=== PATIENT | female | born 1960 | race Caucasian/White ===

== ENCOUNTER 2016-06-21 16:35 | Emergency (ER) | payer OTHER ==
[~2016-06-21] VITALS: Ht 177.8 cm; Wt 85.0 kg
[~2016-06-21 16:35] MED LIST: HYDR-3516 PO; MULT1TAB84 PO; VITA100T2 PO; XARE15TA PO
[2016-06-21 17:22] VITALS: BP 123/76; PULSE 86; RESP 18; TEMP 98.8; O2SAT 96
[2016-06-21 17:26] VITALS: BP 123/76; PULSE 86; RESP 18; TEMP 98.8; O2SAT 96
[2016-06-21] MEDS ORDERED: ONDANSETRON HCL 4 MG/2 ML VIAL IVP ONE (17:45)
[2016-06-21] MEDS ORDERED: MORPHINE SULFATE 4 MG/ML INJ IV PUSH ONE ×2 (17:45→20:30)
[2016-06-21] MEDS ORDERED: SODIUM CHLOR 0.9% 1000 ML INJ 1,000 ML IV SCH (17:45)
--- NOTE | 2016-06-21 18:05 | RADRPT ---
EXAM DATE/TIME: 06/21/2016 18:07 [facility] COMPARISON: CHEST SINGLE AP, April 26, 2016, 21:21. INDICATIONS : Chest pains. MEDICAL HISTORY : None. SURGICAL HISTORY : None. ENCOUNTER: Initial ACUITY: 1 day PAIN SCORE: 10/10 LOCATION: Bilateral lower chest FINDINGS: The cardiac silhouette is normal in transverse diameter. The lungs are free of acute parenchymal opac ity. No effusions are identified. The lungs are hyperinflated. A moderate size hiatal hernia is prese nt. CONCLUSION: 1. No acute cardiopulmonary disease. Hiatal hernia Myron Bach MD on June 21, 2016 at 18:04 Board Certified Radiologist. This report was verified electronically.
--- NOTE | 2016-06-21 18:51 | PD ---
HPI Chief Complaint: Abdominal Pain Time Seen by Provider: 18:47 Travel History International Travel<30 days: No Contact w/Intl Traveler<30days: No Traveled to known affect area: No History of Present Illness HPI 55-year-old female that presents to the ED for evaluation of altered mental status and abdominal pain. Per report from the ED nurse apparently per ambulance a friend of the patient called the ambulance because apparently she was being altered secondary to possible alcohol abuse. Apparently per ambulance report she was uncooperative with them and did smell of alcohol. She did appear to be somewhat confused. No signs of trauma. Ever since she's been here she is actually been cooperative and the only thing she complains of his of severe abdominal pain. She states that she's had diarrhea and some nausea and vomiting. She does tell me that she's been drinking alcohol today. She denies any chest pain or shortness of breath. Per patient she does feel weak. She feels tired. She states that her pain is 8 out of 10. Mainly on the abdomen. Does not radiate. Denies any blood in the stool or in the emesis. Has no allergies to medication. Has not taken anything for this. She seems to answer questions appropriately. She does complain of a slight headache. No blurry vision or double vision. She does have a history of pancreatitis in the past and alcohol abuse per medical records. History somewhat poor as patient is not really good history and and does appear to be somewhat intoxicated. PFSH Past Medical History Hx Anticoagulant Therapy: Yes (XARELTO ) Blood Disorders: No Bipolar Disorder: Yes Anxiety: Yes Depression: Yes Heart Rhythm Problems: No Cancer: No Cardiovascular Problems: Yes (MURMUR) High Cholesterol: No Chest Pain: No Congestive Heart Failure: No Cerebrovascular Accident: Yes Diminished Hearing: No Endocrine: No Gastrointestinal Disorders: Yes (abdominal pain, pancreatitis) Genitourinary: Yes (essence this admission ) Immune Disorder: No Musculoskeletal: Yes (left sided weakness r/t cva) Neurologic: Yes (fibromyalia, old CVA) Psychiatric: Yes (bipolar) Reproductive: No Respiratory: No Pancreatitis: Yes Seizures: Yes ?: Unknown Past Surgical History Other Surgery: No Social History Alcohol Use: Yes (detoxing, LAST DRINK 04/25/16 1200) Tobacco Use: Yes (1/2PPD) Substance Use: No Allergies-Medications (Allergen,Severity, Reaction): Coded Allergies: No Known Allergies (Unverified , 04/26/16) Reported Meds & Prescriptions Reported Meds & Active Scripts Active Xarelto (Rivaroxaban) 15 Mg Tab 15 Mg PO DIRECTED 30 Days 15 mg po twice daily for 15 days then 20 mg po daily. Multivitamin Adults (Multiple Vitamins W/ Minerals) 1 Tab 1 Tab PO DAILY 30 Days Vitamin B-1 (Thiamine HCl) 100 Mg Tab 100 Mg PO DAILY 30 Days Hydrocodone-Acetaminophen 5-325 mg Tab 1 Tab PO Q6HR PRN Review of Systems ROS Limitations: Poor Historian General / Constitutional: Positive: Chills, No: Fever, Weight Gain, Weight Loss, Other Eyes: No: Diploplia, Blurred Vision, Photophobia, Drainage, Redness, Foreign Body Sensation, Pain, Tearing, Blind Spots, Visual changes, Blindness, Other HENT: Positive: Headaches, No: Vertigo, Lightheadedness, Sore Throat, Rhinitis , Rhinorrhea, Congestion, Nosebleed, Neck Stiffness, Neck Pain, Masses, Gingival Bleeding, Dental Difficulties, Ear Discharge, Earache, Other Cardiovascular: No: Chest Pain or Discomfort, Palpitations, Irregular Rhythm, Tachycardia, Diaphoresis, Syncope, Dyspnea on exertion, Varicosities, Edema, Cyanosis, Varicosities, Phlebitis, Claudication, Other Respiratory: No: Cough, Shortness of Breath, Wheezing, Sneezing, Orthopnea, Hemoptysis, Stridor, Night Sweats, Pleuritic Pain, Other Gastrointestinal: Positive: Nausea, Vomiting, Diarrhea, Abdominal Pain, No: Hematemesis, Hematochezia, Constipation, Changes in Bowel Habits, Indigestion, Dysphagia, Loss of Appetite, Other Genitourinary: No: Urgency, Frequency, Dysuria, Nocturia, Hematuria, Decreased Urinary Output, Oliguria, Hesitancy, Dribbling, Incontinence, Pelvic Pain, Flank Pain, Dyspareunia, Discharge, Dysmenorrhea, Menorrhagia, Metorrhagia, Vaginal Bleeding, Other Musculoskeletal: No: Myalgias, Arthralgias, Limited ROM, Weakness, Cramping, Edema, Pain, Atrophy, Other Skin: No Rash, No Itching, No Dryness, No Lumps, No Hives, No Change in Pigmentation, No Change in nails, No Alopecia, No Lesions, No Breast Lumps, No Breast Tenderness, No Breast Swelling, No Other Neurologic: No: Weakness, Dizziness, Syncope, Focal Abnormalities, Coordination Problem, Tremor, Ataxia, Headache, Change in Mentation, Slurred Speech, Paresthesia, Incontinence, Seizures, Sensory Disturbance, Other Psychiatric: No: Anxiety, Depression, Suicidal Ideations, Disorder of Thought, Mood Disorder, Substance Abuse, Homicidal Ideation, Other Endocrine: No: Heat Intolerance, Cold Intolerance, Polyuria, Polydipsia, Other Hematologic/Lymphatic: No: Easy Bruising, Lymph Node Enlargement, Other Physical Exam Narrative GENERAL: SKIN: Warm and dry. HEAD: Atraumatic. Normocephalic. EYES: Pupils equal and round 4 mm reactive to light and accommodation. No scleral icterus. No injection or drainage. ENT: No nasal bleeding or discharge. Mucous membranes pink and moist. Tongue is midline. No uvula deviation. NECK: Trachea midline. No JVD. CARDIOVASCULAR: Regular rate and rhythm. No murmurs, S3, S4. RESPIRATORY: No accessory muscle use. Clear to auscultation. Breath sounds equal bilaterally. GASTROINTESTINAL: Abdomen soft, tender with deep and so palpation bilaterally, nondistended. Hepatic and splenic margins not palpable. MUSCULOSKELETAL: Extremities without clubbing, cyanosis, or edema. No obvious deformities. Patient has full range of motion of the upper and lower extremities bilaterally. 2+ pulses bilaterally. NEUROLOGICAL: Awake and alert. No obvious cranial nerve deficits. Motor grossly within normal limits. Five out of 5 muscle strength in the arms and legs. Normal speech. PSYCHIATRIC: Appropriate mood and affect; insight and judgment normal. Data Data Last Documented VS Vital Signs Date Time Temp Pulse Resp B/P Pulse Ox O2 Delivery O2 Flow Rate FiO2 06/21/16 20:02 80 18 98 Room Air 06/21/16 17:26 98.8 123/76 Orders Complete Blood Count With Diff (06/21/16 17:45) Comprehensive Metabolic Panel (06/21/16:45) Lipase (06/21/16:45) Lactic Acid (06/21/16:45) Prothrombin Time / Inr (Pt) (06/21/16:45) Act Partial Throm Time (Ptt) (06/21/16:45) Urinalysis - C+S If Indicated (06/21/16:45) Ct Abd/Pel W Iv Contrast(Rout) (06/21/16 17:45) Iv Access Insert/Monitor (06/21/16 17:45) Ecg Monitoring (06/21/16 17:45) Oximetry (06/21/16 17:45) NPO (06/21/16 17:45) Morphine Inj (Morphine Inj) (06/21/16 17:45) Ondansetron Inj (Zofran Inj) (06/21/16 17:45) Sodium Chlor 0.9% 1000 Ml Inj (Ns 1000 M (06/21/16 17:45) Electrocardiogram (06/21/16 17:45) Ct Brain W/O Iv Contrast(Rout) (06/21/16 ) Chest, Single Ap (06/21/16 ) Troponin I (06/21/16 17:45) Drug Screen, Random Urine (06/21/16 17:45) Alcohol (Ethanol) (06/21/16 17:45) Thiamine Inj (Thiamine Inj) (06/21/16 20:15) Morphine Inj (Morphine Inj) (06/21/16 20:30) Iohexol 350 Inj (Omnipaque 350 Inj) (06/21/16 21:47) Cath For Specimen (06/21/16 22:28) Labs Laboratory Tests Test 06/21/16 19:15 White Blood Count 3.9 TH/MM3 Red Blood Count 4.82 MIL/MM3 Hemoglobin 15.3 GM/DL Hematocrit 44.3 % Mean Corpuscular Volume 91.9 FL Mean Corpuscular Hemoglobin 31.7 PG Mean Corpuscular Hemoglobin 34.4 % Concent Red Cell Distribution Width 16.3 % Platelet Count 240 TH/MM3 Mean Platelet Volume 7.6 FL Neutrophils (%) (Auto) 43.5 % Lymphocytes (%) (Auto) 47.9 % Monocytes (%) (Auto) 8.0 % Eosinophils (%) (Auto) 0.1 % Basophils (%) (Auto) 0.5 % Neutrophils # (Auto) 1.7 TH/MM3 Lymphocytes # (Auto) 1.9 TH/MM3 Monocytes # (Auto) 0.3 TH/MM3 Eosinophils # (Auto) 0.0 TH/MM3 Basophils # (Auto) 0.0 TH/MM3 CBC Comment DIFF FINAL Differential Comment Prothrombin Time 9.8 SEC Prothromb Time International 0.9 RATIO Ratio Activated Partial 27.3 SEC Thromboplast Time Sodium Level 130 MEQ/L Potassium Level 4.6 MEQ/L Chloride Level 93 MEQ/L Carbon Dioxide Level 26.0 MEQ/L Anion Gap 11 MEQ/L Blood Urea Nitrogen 4 MG/DL Creatinine 0.51 MG/DL Estimat Glomerular Filtration 124 ML/MIN Rate Random Glucose 77 MG/DL Lactic Acid Level 2.6 mmol/L Calcium Level 8.4 MG/DL Total Bilirubin 0.3 MG/DL Aspartate Amino Transf 48 U/L (AST/SGOT) Alanine Aminotransferase 46 U/L (ALT/SGPT) Alkaline Phosphatase 128 U/L Troponin I LESS THAN 0.02 NG/ML Total Protein 7.5 GM/DL Albumin 3.9 GM/DL Lipase 58 U/L Ethyl Alcohol Level 249 MG/DL MDM Medical Decision Making Medical Screen Exam Complete: Yes Emergency Medical Condition: Yes Medical Record Reviewed: Yes Interpretation(s) CBC & BMP Diagram 06/21/16 19:15 LFts WNL lipase slighlty elevated tox negative Last Impressions Abdomen/Pelvis CT 06/21/16 1745 Signed Impressions: Service Date/Time: Tuesday, June 21, 2016 21:43 - CONCLUSION: 1. No acute findings. Previous acute pancreatitis has resolved on CT examination. 2. Large hiatal hernia. 3. 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 4. Diffuse fatty infiltration of the liver. 5. Marked bladder distention. Omar Fraire MD Head CT 06/21/16 0000 Signed Impressions: Service Date/Time: Tuesday, June 21, 2016 20:10 - CONCLUSION: Normal examination for a patient of this age. Omar Fraire MD Chest X-Ray 06/21/16 0000 Signed Impressions: Service Date/Time: Tuesday, June 21, 2016 18:07 - CONCLUSION: 1. No acute cardiopulmonary disease. Hiatal hernia Myron Bach MD Differential Diagnosis Pancreatitis versus acute abdomen versus cholecystitis versus alcohol abuse versus altered mental status versus head injury versus drug abuse versus intoxication versus dehydration versus acute kidney injury Narrative Course 55-year-old female that presents to the ED for evaluation of abdominal pain and altered mental status. Patient was properly examined and was found to have signs and symptoms of unclear etiology at this time. Patient does appear to be somewhat intoxicated and somewhat confused but she does complain of a lot of abdominal pain. Recommendation presents for labs and imaging and workup for altered mental status as well as abdominal pain. Patient is agreeable with this. Labs and imaging ordered. Patient was started on IV fluids. Given pain medication as well. Labs and imaging showed elevated lactic acid. CT of the abdomen did show distended bladder. Patient has not been able to give us a urine sample since been here. Patient's alcohol level is also elevated. Case was discussed in my attending Dr. Charles who recommends causing the patient. Patient was signed out to her pending disposition for possible admission. Moody Martin Jun 21, 2016 18:51
[2016-06-21 19:30] LABS: AUTOMATED NEUTROPHIL # 1.7 TH/MM3 (1.8-7.7); BASOPHIL % 0.5 % (0.0-2.0); EOSINOPHIL % 0.1 % (0.0-4.0); HEMATOCRIT 44.3 % (35.0-46.0); HEMO FLAGS DIFF FINAL; LYMPH % 47.9 % (9.0-44.0); LYMPHOCYTE # 1.9 TH/MM3 (1.0-4.8); MEAN CELL VOLUME 91.9 FL (80.0-100.0); MEAN CORPUSCULAR HEMOGLOBIN 31.7 PG (27.0-34.0); MEAN CORPUSCULAR HGB CONC 34.4 % (32.0-36.0); NEUT % 43.5 % (16.0-70.0); PLATELET COUNT 240 TH/MM3 (150-450); RED BLOOD COUNT 4.82 MIL/MM3 (4.00-5.30); RED CELL DISTRIBUTION WIDTH 16.3 % (11.6-17.2); WHITE BLOOD COUNT 3.9 TH/MM3 (4.0-11.0)
[2016-06-21 19:44] LABS: ANION GAP 11 MEQ/L (5-15)
[2016-06-21 19:50] LABS: ALKALINE PHOSPHATASE 128 U/L (45-117); ALT (GPT) 46 U/L (10-53); AST (GOT) 48 U/L (15-37); BLOOD UREA NITROGEN 4 MG/DL (7-18); CHLORIDE 93 MEQ/L (98-107); GLOMERULAR FILTRATION RATE 124 ML/MIN (>89); POTASSIUM 4.6 MEQ/L (3.5-5.1); SODIUM (NA) 130 MEQ/L (136-145); TOTAL BILIRUBIN ADULT 0.3 MG/DL (0.2-1.0)
[2016-06-21 20:02] VITALS: PULSE 80; RESP 18; O2SAT 98
[2016-06-21 20:02] LABS: APTT (PATIENT) 27.3 SEC (24.3-30.1); INTERNATIONAL NORMALIZED RATIO 0.9 RATIO; PROTHROMBIN TIME - PATIENT 9.8 SEC (9.8-11.6)
[2016-06-21] MEDS ORDERED: THIAMINE INJ 100 MG in SODIUM CHLORIDE 0.9% INJ 100 ML IV ONE (20:15)
--- NOTE | 2016-06-21 20:57 | RADRPT ---
EXAM DATE/TIME: 06/21/2016 20:10 [facility] COMPARISON: No previous studies available for comparison. INDICATIONS : Nausea, vomiting and weakness. RADIATION DOSE: 50.47 CTDIvol (mGy) MEDICAL HISTORY : Seizures. Pancreatitis. Cerebrovascular disease. SURGICAL HISTORY : None. ENCOUNTER: Initial ACUITY: 1 day PAIN SCALE: 6/10 LOCATION: cranial TECHNIQUE: Multiple contiguous axial images were obtained of the head. Using automated exposure control and adj ustment of the mA and/or kV according to patient size, radiation dose was kept as low as reasonably a chievable to obtain optimal diagnostic quality images. FINDINGS: CEREBRUM: The ventricles are normal for age. No evidence of midline shift, mass lesion, hemorrhage or acute in farction. No extra-axial fluid collections are seen. POSTERIOR FOSSA: The cerebellum and brainstem are intact. The 4th ventricle is midline. The cerebellopontine angle i s unremarkable. EXTRACRANIAL: The visualized portion of the orbits is intact. SKULL: The calvaria is intact. No evidence of skull fracture. CONCLUSION: Normal examination for a patient of this age. Omar Fraire MD on June 21, 2016 at 20:55 Board Certified Radiologist. This report was verified electronically.
[2016-06-21] MEDS ORDERED: IOHEXOL 350 MG/ML 10 ML VIAL (for RAD DIAG) IV ONE (21:47)
--- NOTE | 2016-06-21 22:26 | RADRPT ---
EXAM DATE/TIME: 06/21/2016 21:43 [facility] COMPARISON: No previous studies available for comparison. INDICATIONS : Nausea, vomiting, and abdominal pain. IV CONTRAST: 100 cc Omnipaque 350 (iohexol) IV ORAL CONTRAST: No oral contrast ingested. RADIATION DOSE: 4.62 CTDIvol (mGy) MEDICAL HISTORY : Seizures. Pancreatitis. SURGICAL HISTORY : IVC Filter placement. ENCOUNTER: Initial ACUITY: 1 day PAIN SCALE: 7/10 LOCATION: Bilateral lower quadrant TECHNIQUE: Volumetric scanning of the abdomen and pelvis was performed. Using automated exposure control and ad justment of the mA and/or kV according to patient size, radiation dose was kept as low as reasonably achievable to obtain optimal diagnostic quality images. FINDINGS: Comparison is April 2016. Again seen is a large hiatal hernia diffuse fatty liver. Spleen, adrenal s and kidneys demonstrate no acute findings. Previous acute pancreatitis has resolved. There is chron ic thrombosis of the splenic vein with the vein not clearly visualized. Previously acute thrombosis w as present. Noncalcified gallstones. No bowel obstruction. Bladder is diffusely and markedly distended. Vena cava filter is present. No acute bony abnormalities. CONCLUSION: 1. No acute findings. Previous acute pancreatitis has resolved on CT examination. 2. Large hiatal hernia. 3. 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 4. Diffuse fatty infiltration of the liver. 5. Marked bladder distention. Omar Fraire MD on June 21, 2016 at 22:19 Board Certified Radiologist. This report was verified electronically.
[2016-06-22 00:31] LABS: AMPHETAMINE, URINE NEG (NEG); BARBITURATES, URINE NEG (NEG); COCAINE, URINE NEG (NEG)
[2016-06-22 00:49] LABS: BLOOD, URINE NEG (NEG); COMMENT (UR) CULT NOT INDICATED; CULTURE IF INDICATED CULT NOT INDICATED; GLUCOSE,URINE NEG (NEG); KETONE, URINE NEG (NEG); MUCUS URINE FEW /lpf (OCC); NITRITE,URINE NEG (NEG); PH, URINE 5.5 (5.0-8.5); URINE COLOR LIGHT-YELLOW (YELLW/STRAW)
[2016-06-22 02:29] VITALS: BP 118/67; PULSE 88; RESP 16; O2SAT 97
[2016-06-22] MEDS ORDERED: ALUMINUM/MAGNESIUM/SIMETH 30 ML CUP PO ONE (02:30)
[2016-06-22] MEDS ORDERED: LIDOCAINE VISCOUS 2% SOLN 15 ML UDC SWISH-SWAL ONE (02:30)
[2016-06-22] MEDS ORDERED: ATROPINE/SCOPOLAM/HYOSCYAM/PB ELIXIR 10 ML CUP PO ONE (02:30)
[2016-06-22] MEDS ORDERED: ACETAMINOPHEN 500 MG CPLT PO ONE (02:30)
[2016-06-22 04:00] VITALS: BP 127/84; PULSE 75; RESP 16; O2SAT 97
[2016-06-22] MEDS ORDERED: XARE15TA PO (06:49)
--- NOTE | 2016-06-22 06:50 | PD ---
Data Data Last Documented VS Vital Signs Date Time Temp Pulse Resp B/P Pulse Ox O2 Delivery O2 Flow Rate FiO2 06/22/16 04:00 75 16 127/84 97 Room Air 06/21/16 17:26 98.8 Orders Complete Blood Count With Diff (06/21/16 17:45) Comprehensive Metabolic Panel (06/21/16 17:45) Lipase (06/21/16 17:45) Lactic Acid (06/21/16 17:45) Prothrombin Time / Inr (Pt) (06/21/16 17:45) Act Partial Throm Time (Ptt) (06/21/16 17:45) Urinalysis - C+S If Indicated (06/21/16 17:45) Ct Abd/Pel W Iv Contrast(Rout) (06/21/16 17:45) Iv Access Insert/Monitor (06/21/16 17:45) Ecg Monitoring (06/21/16 17:45) Oximetry (06/21/16 17:45) NPO (06/21/16 17:45) Morphine Inj (Morphine Inj) (06/21/16 17:45) Ondansetron Inj (Zofran Inj) (06/21/16 17:45) Sodium Chlor 0.9% 1000 Ml Inj (Ns 1000 M (06/21/16 17:45) Electrocardiogram (06/21/16 17:45) Ct Brain W/O Iv Contrast(Rout) (06/21/16 ) Chest, Single Ap (06/21/16 ) Troponin I (06/21/16 17:45) Drug Screen, Random Urine (06/21/16 17:45) Alcohol (Ethanol) (06/21/16 17:45) Thiamine Inj (Thiamine Inj) (06/21/16 20:15) Morphine Inj (Morphine Inj) (06/21/16 20:30) Iohexol 350 Inj (Omnipaque 350 Inj) (06/21/16 21:47) Cath For Specimen (06/21/16 22:28) Ed Poc Ultrasound (06/21/16 ) Ed Poc Ultrasound (06/21/16 ) Acetaminophen (Tylenol) (06/22/16 02:30) Al-Mag Hy-Si 40-40-4 Mg/Ml Liq (Mag-Al P (06/22/16 02:30) Lidocaine 2% Viscous (Xylocaine 2% Visco (06/22/16 02:30) Sqpzr-Cgqtkx-Nkrkir-Pb Liq ( Liq (06/22/16 02:30) Labs Laboratory Tests Test 06/21/16 06/22/16 19:15 00:10 White Blood Count 3.9 TH/MM3 Red Blood Count 4.82 MIL/MM3 Hemoglobin 15.3 GM/DL Hematocrit 44.3 % Mean Corpuscular Volume 91.9 FL Mean Corpuscular Hemoglobin 31.7 PG Mean Corpuscular Hemoglobin 34.4 % Concent Red Cell Distribution Width 16.3 % Platelet Count 240 TH/MM3 Mean Platelet Volume 7.6 FL Neutrophils (%) (Auto) 43.5 % Lymphocytes (%) (Auto) 47.9 % Monocytes (%) (Auto) 8.0 % Eosinophils (%) (Auto) 0.1 % Basophils (%) (Auto) 0.5 % Neutrophils # (Auto) 1.7 TH/MM3 Lymphocytes # (Auto) 1.9 TH/MM3 Monocytes # (Auto) 0.3 TH/MM3 Eosinophils # (Auto) 0.0 TH/MM3 Basophils # (Auto) 0.0 TH/MM3 CBC Comment DIFF FINAL Differential Comment Prothrombin Time 9.8 SEC Prothromb Time International 0.9 RATIO Ratio Activated Partial 27.3 SEC Thromboplast Time Sodium Level 130 MEQ/L Potassium Level 4.6 MEQ/L Chloride Level 93 MEQ/L Carbon Dioxide Level 26.0 MEQ/L Anion Gap 11 MEQ/L Blood Urea Nitrogen 4 MG/DL Creatinine 0.51 MG/DL Estimat Glomerular Filtration 124 ML/MIN Rate Random Glucose 77 MG/DL Lactic Acid Level 2.6 mmol/L Calcium Level 8.4 MG/DL Total Bilirubin 0.3 MG/DL Aspartate Amino Transf 48 U/L (AST/SGOT) Alanine Aminotransferase 46 U/L (ALT/SGPT) Alkaline Phosphatase 128 U/L Troponin I LESS THAN 0.02 NG/ML Total Protein 7.5 GM/DL Albumin 3.9 GM/DL Lipase 58 U/L Ethyl Alcohol Level 249 MG/DL Urine Color LIGHT-YELLOW Urine Turbidity CLEAR Urine pH 5.5 Urine Specific Mentcle 1.005 Urine Protein NEG mg/dL Urine Glucose (UA) NEG mg/dL Urine Ketones NEG mg/dL Urine Occult Blood NEG Urine Nitrite NEG Urine Bilirubin NEG Urine Urobilinogen LESS THAN 2.0 MG/DL Urine Leukocyte Esterase NEG Urine RBC 1 /hpf Urine WBC 1 /hpf Urine Mucus FEW /lpf Microscopic Urinalysis Comment CULT NOT INDICATED Urine Opiates Screen NEG Urine Barbiturates Screen NEG Urine Amphetamines Screen NEG Urine Benzodiazepines Screen NEG Urine Cocaine Screen NEG Urine Cannabinoids Screen NEG MDM Supervised Visit with CHRISTIAN: Yes Narrative Course This is a 55-year-old female who presents the emergency department with abdominal pain in the setting of alcohol use. She also has a history of protein C and protein S deficiency. She's supposed to be unresponsive and also but discontinued it because of her alcoholism as she thought the risks outweighed the benefits. She was placed on a monitor and an IV was established. Labs are obtained which demonstrate no elevated alcohol level over 250. CT abdomen and pelvis was negative for colitis but did demonstrate a markedly distended bladder. A Bolton catheter was placed and the patient made 1.2 L of urine. The Bolton catheter was removed and the patient was observed for several hours. She was able to void independently. I think the patient can be discharged and I told her to return to the emergency department if she develops further difficulty urinating. I think her urinary retention is likely in the setting of morphine administered for her pain. I think her abdominal pain is due to alcoholic gastritis. I did consider mesenteric ischemia given the patient's history of protein C and protein S deficiencies however there is no evidence of colitis or enteritis on CT so I think this is unlikely. Her lactic acid is likely in the setting of dehydration due to alcoholism. Patient will be discharged home. Diagnosis Primary Impression: Alcohol intoxication Qualified Code: F10.120 - Alcohol intoxication, uncomplicated Additional Impression: Gastritis Qualified Code: K29.20 - Acute alcoholic gastritis without hemorrhage Patient Instructions: General Instructions Additional Instruction: If you develop severe or worsening abdominal pain, fever>100.4, persistent vomiting or inability to eat or drink return to the emergency department immediately. Follow up with your primary care physician in 1-2 days for a check-up. Follow up with Alexandra Cuellar in regards to psychiatric or substance related issues at: [address] [place] [id number] Med/Other Pt SpecificInfo: Prescription(s) given Scripts Rivaroxaban (Xarelto)15 Mg Tab15 Mg PO Q12HR 21 Days Ref 0 Prov:Highet,Fifi H. MD 06/22/16 Disposition: 01 DISCHARGE HOME Condition: Stable Fifi Charles MD Jun 22, 2016 06:50
[2016-06-22 07:11] VITALS: BP 127/84
--- NOTE | 2016-06-22 13:29 | EKG ---
Date Performed: 06/21/2016 Time Performed: 19:53:18 PTAGE: 55 years EKG: Sinus rhythm POSSIBLE RIGHT VENTRICULAR CONDUCTION DELAY BORDERLINE ECG PREVIOUS TRACING : 04/26/2016 21.02 Compared to previous tracing, sinus rate has increased. DOCTOR: Roni Mejia Interpretating Date/Time 06/22/2016 13:28:53
== END 2016-06-22 07:21 | disposition home or self-care (01) ==
LOC: NEPC 16:35
DX: F10.120 Alcohol abuse with intoxication, uncomplicated (principal); K29.20 Alcoholic gastritis without bleeding; R19.7 Diarrhea, unspecified; R94.31 Abnormal electrocardiogram [ECG] [EKG]; Z79.01 Long term (current) use of anticoagulants; F17.210 Nicotine dependence, cigarettes, uncomplicated
CPT/HCPCS: 70450; 71010; 74177; 80053; 80307; 80320; 81001; 83605; 83690; 84484; 85025; 85610; 85730; 93005; 96361; 96365; 96375; 96376; 99285; J2270; J2405; J3411; J7030; P9612; Q9967

== ENCOUNTER 2016-06-28 11:11 | Emergency (ER) | payer OTHER ==
[~2016-06-28] VITALS: Ht 177.8 cm; Wt 60.0 kg
[2016-06-28 11:14] VITALS: BP 127/75; PULSE 101; RESP 15; TEMP 97.8; O2SAT 95
[2016-06-28 14:42] VITALS: BP 137/90; PULSE 101; RESP 18; O2SAT 97
[2016-06-28] MEDS ORDERED: SODIUM CHLOR 0.9% 1000 ML INJ 1,000 ML IV SCH (14:56)
[2016-06-28] MEDS ORDERED: SODIUM CHLORIDE 0.9% FLUSH 5 ML FLUSH IVF PRN (15:00)
[2016-06-28] MEDS ORDERED: MORPHINE SULFATE 8 MG/ML INJ IV PUSH ONE ×2 (15:00→18:15)
[2016-06-28] MEDS ORDERED: THIAMINE INJ 100 MG in SODIUM CHLORIDE 0.9% INJ 100 ML IV ONE (15:00)
[2016-06-28] MEDS ORDERED: LORazepam 2 MG/ML VIAL IV PUSH ONE (15:00)
[2016-06-28 15:20] VITALS: O2SAT 94
[2016-06-28 15:59] LABS: AUTOMATED NEUTROPHIL # 2.1 TH/MM3 (1.8-7.7); BASOPHIL % 0.6 % (0.0-2.0); HEMATOCRIT 48.1 % (35.0-46.0); HEMO FLAGS DIFF FINAL; LYMPH % 29.1 % (9.0-44.0); MEAN CELL VOLUME 92.3 FL (80.0-100.0); MEAN CORPUSCULAR HEMOGLOBIN 31.4 PG (27.0-34.0); MONO % 7.7 % (0.0-8.0); NEUT % 62.6 % (16.0-70.0); PLATELET COUNT 191 TH/MM3 (150-450); RED BLOOD COUNT 5.21 MIL/MM3 (4.00-5.30); RED CELL DISTRIBUTION WIDTH 16.8 % (11.6-17.2); WHITE BLOOD COUNT 3.3 TH/MM3 (4.0-11.0)
[2016-06-28 16:06] LABS: APTT (PATIENT) 27.6 SEC (24.3-30.1); INTERNATIONAL NORMALIZED RATIO 0.9 RATIO; PROTHROMBIN TIME - PATIENT 9.6 SEC (9.8-11.6)
[2016-06-28 16:20] LABS: ALKALINE PHOSPHATASE 182 U/L (45-117); ALT (GPT) 125 U/L (10-53); ANION GAP 16 MEQ/L (5-15); BICARBONATE 27.4 MEQ/L (21.0-32.0); BLOOD UREA NITROGEN 4 MG/DL (7-18); CHLORIDE 88 MEQ/L (98-107); GLOMERULAR FILTRATION RATE 83 ML/MIN (>89); SODIUM (NA) 131 MEQ/L (136-145); TOTAL BILIRUBIN ADULT 0.4 MG/DL (0.2-1.0)
[2016-06-28 16:21] LABS: AST (GOT) 187 U/L (15-37); POTASSIUM 4.4 MEQ/L (3.5-5.1)
[2016-06-28] MEDS ORDERED: SODIUM CHLOR 0.9% 1000 ML INJ 1,000 ML IV ONE ×2 (16:30→17:30)
[2016-06-28] MEDS ORDERED: IOHEXOL 350 MG/ML 10 ML VIAL (for RAD DIAG) IV ONE (16:47)
--- NOTE | 2016-06-28 17:03 | RADRPT ---
EXAM DATE/TIME: 06/28/2016 16:40 [facility] COMPARISON: CT ABDOMEN & PELVIS W CONTRAST, June 21, 2016, 21:43. INDICATIONS : Diffuse abdominal pain for 3 days. IV CONTRAST: 75 cc Omnipaque 350 (iohexol) IV ORAL CONTRAST: No oral contrast ingested. RADIATION DOSE: 4.53 CTDIvol (mGy) MEDICAL HISTORY : Cerebrovascular disease. Pancreatitis. SURGICAL HISTORY : IVC Filter placement. ENCOUNTER: Initial ACUITY: 3 days PAIN SCALE: 6/10 LOCATION: Diffuse abdomen/pelvis TECHNIQUE: Volumetric scanning of the abdomen and pelvis was performed. Using automated exposure control and ad justment of the mA and/or kV according to patient size, radiation dose was kept as low as reasonably achievable to obtain optimal diagnostic quality images. FINDINGS: The examination demonstrates a large hiatal hernia. The lung bases are clear. There is decreased attenuation of the liver suggesting fatty infiltration. The liver appears mildly e nlarged. The spleen, pancreas, adrenal glands and kidneys are intact. The abdominal aorta is normal in caliber. There is no retroperitoneal adenopathy. Incidental note is made of an IVC filter. There is no free fluid within the pelvis. No iliac or inguinal adenopathy is seen. The visualized loo ps of small and large bowel are unremarkable. The visualized bony structures demonstrate mild degenerative changes but are otherwise intact. CONCLUSION: 1. Fatty infiltration of the liver with mild hepatomegaly. 2. Large hiatal hernia. 3. Incidental note made of an IVC filter. 4. Stable compared to prior examination. Eric Stovall MD on June 28, 2016 at 16:57 Board Certified Radiologist. This report was verified electronically.
[2016-06-28 18:26] VITALS: BP 152/81; PULSE 94; RESP 16; O2SAT 98
--- NOTE | 2016-06-28 19:12 | PD ---
HPI Chief Complaint: Medical Clearance Time Seen by Provider: 14:54 Travel History International Travel<30 days: No Contact w/Intl Traveler<30days: No Traveled to known affect area: No History of Present Illness HPI Patient is a 55-year-old female presents emergency department for evaluation for medical clearance for ox of alcohol Osorio Alisa act. Patient chief complaint to me is she's been having some left upper quadrant abdominal pain. Denies any fever denies any nausea or vomiting. Patient states pain is been present for the past few days. States is fairly mild in nature. Cramping in nature. Waxing and waning. No vaginal bleeding or vaginal discharge no blood in the stool no blood in the emesis. Patient does admit to drinking tonight. PFSH Past Medical History Hx Anticoagulant Therapy: Yes (XARELTO ) Blood Disorders: No Bipolar Disorder: Yes Anxiety: Yes Depression: Yes Heart Rhythm Problems: No Cancer: No Cardiovascular Problems: Yes (MURMUR) High Cholesterol: No Chest Pain: No Congestive Heart Failure: No Cerebrovascular Accident: Yes (CVA 1999) Diminished Hearing: No Endocrine: No Gastrointestinal Disorders: Yes (abdominal pain, pancreatitis) Genitourinary: Yes (essence this admission ) Immune Disorder: No Musculoskeletal: Yes (left sided weakness r/t cva) Neurologic: Yes (fibromyalia, old CVA) Psychiatric: Yes (bipolar) Reproductive: No Respiratory: No Pancreatitis: Yes Seizures: Yes ?: Not Past Surgical History Other Surgery: No Social History Alcohol Use: Yes (etoh abuse) Tobacco Use: Yes (1/2PPD) Substance Use: No Allergies-Medications (Allergen,Severity, Reaction): Coded Allergies: No Known Allergies (Unverified , 04/26/16) Reported Meds & Prescriptions Reported Meds & Active Scripts Active Xarelto (Rivaroxaban) 15 Mg Tab 15 Mg PO Q12HR 21 Days Xarelto (Rivaroxaban) 15 Mg Tab 15 Mg PO DIRECTED 30 Days 15 mg po twice daily for 15 days then 20 mg po daily. Multivitamin Adults (Multiple Vitamins W/ Minerals) 1 Tab 1 Tab PO DAILY 30 Days Vitamin B-1 (Thiamine HCl) 100 Mg Tab 100 Mg PO DAILY 30 Days Review of Systems Except as stated in HPI: all other systems reviewed are Neg Physical Exam Narrative GENERAL: Well-developed well-nourished no apparent distress SKIN: Warm and dry. HEAD: Atraumatic. Normocephalic. EYES: Pupils equal and round. No scleral icterus. No injection or drainage. ENT: No nasal bleeding or discharge. Mucous membranes pink and moist. NECK: Trachea midline. No JVD. CARDIOVASCULAR: Regular rate and rhythm. No murmur appreciated. RESPIRATORY: No accessory muscle use. Clear to auscultation. Breath sounds equal bilaterally. GASTROINTESTINAL: Abdomen soft, minimally tender in the left upper quadrant., nondistended. Hepatic and splenic margins not palpable. No CVA tenderness. MUSCULOSKELETAL: No obvious deformities. No clubbing. No cyanosis. No edema. NEUROLOGICAL: Awake and alert. No obvious cranial nerve deficits. Motor grossly within normal limits. Normal speech. PSYCHIATRIC: Appropriate mood and affect; insight and judgment normal. Data Data Last Documented VS Vital Signs Date Time Temp Pulse Resp B/P Pulse Ox O2 Delivery O2 Flow Rate FiO2 06/28/16 18:26 94 16 152/81 98 Room Air 06/28/16 11:14 97.8 Orders Complete Blood Count With Diff (06/28/16 14:56) Comprehensive Metabolic Panel (06/28/16 14:56) Lipase (06/28/16 14:56) Lactic Acid (06/28/16 14:56) Prothrombin Time / Inr (Pt) (06/28/16 14:56) Act Partial Throm Time (Ptt) (06/28/16 14:56) Ct Abd/Pel W Iv Contrast(Rout) (06/28/16 14:56) Iv Access Insert/Monitor (06/28/16 14:56) Ecg Monitoring (06/28/16 14:56) Oximetry (06/28/16 14:56) Sodium Chlor 0.9% 1000 Ml Inj (Ns 1000 M (06/28/16 14:56) Sodium Chloride 0.9% Flush (Ns Flush) (06/28/16 15:00) Electrocardiogram (06/28/16 14:56) Morphine Inj (Morphine Inj) (06/28/16 15:00) Thiamine Inj (Thiamine Inj) (06/28/16 15:00) Lorazepam Inj (Ativan Inj) (06/28/16 15:00) Sodium Chlor 0.9% 1000 Ml Inj (Ns 1000 M (06/28/16 16:30) Alcohol (Ethanol) (06/28/16 16:42) Iohexol 350 Inj (Omnipaque 350 Inj) (06/28/16 16:47) Sodium Chlor 0.9% 1000 Ml Inj (Ns 1000 M (06/28/16 17:30) Lactic Acid (06/28/16 18:10) Morphine Inj (Morphine Inj) (06/28/16 18:15) Labs Laboratory Tests Test 06/28/16 06/28/16 15:20 18:20 White Blood Count 3.3 TH/MM3 Red Blood Count 5.21 MIL/MM3 Hemoglobin 16.3 GM/DL Hematocrit 48.1 % Mean Corpuscular Volume 92.3 FL Mean Corpuscular Hemoglobin 31.4 PG Mean Corpuscular Hemoglobin 34.0 % Concent Red Cell Distribution Width 16.8 % Platelet Count 191 TH/MM3 Mean Platelet Volume 8.0 FL Neutrophils (%) (Auto) 62.6 % Lymphocytes (%) (Auto) 29.1 % Monocytes (%) (Auto) 7.7 % Eosinophils (%) (Auto) 0.0 % Basophils (%) (Auto) 0.6 % Neutrophils # (Auto) 2.1 TH/MM3 Lymphocytes # (Auto) 1.0 TH/MM3 Monocytes # (Auto) 0.3 TH/MM3 Eosinophils # (Auto) 0.0 TH/MM3 Basophils # (Auto) 0.0 TH/MM3 CBC Comment DIFF FINAL Differential Comment Prothrombin Time 9.6 SEC Prothromb Time International 0.9 RATIO Ratio Activated Partial 27.6 SEC Thromboplast Time Sodium Level 131 MEQ/L Potassium Level 4.4 MEQ/L Chloride Level 88 MEQ/L Carbon Dioxide Level 27.4 MEQ/L Anion Gap 16 MEQ/L Blood Urea Nitrogen 4 MG/DL Creatinine 0.72 MG/DL Estimat Glomerular Filtration 83 ML/MIN Rate Random Glucose 83 MG/DL Lactic Acid Level 4.3 mmol/L 2.6 mmol/L Calcium Level 8.9 MG/DL Total Bilirubin 0.4 MG/DL Aspartate Amino Transf 187 U/L (AST/SGOT) Alanine Aminotransferase 125 U/L (ALT/SGPT) Alkaline Phosphatase 182 U/L Total Protein 8.7 GM/DL Albumin 4.4 GM/DL Lipase 118 U/L Ethyl Alcohol Level 230 MG/DL MDM Medical Decision Making Medical Screen Exam Complete: Yes Emergency Medical Condition: Yes Interpretation(s) EKG shows normal sinus rhythm with normal axis normal R-wave progression. No concerning ST T changes intervals within normal limits. this is normal EKG. Differential Diagnosis Gastritis, gastroenteritis, intoxication, pancreatitis, colitis, electro-light abnormality. Narrative Course Patient was roomed in the emergency department,Patient is intoxicated and does have some mild left upper quadrant tenderness making CT examination indicated, level to count is 3.3 with a normal differential, hematemesis 16.3, hematocrit 40.1. Ethanol alcohol is 2:30, lactic acid is 4.3. Last 24 hours Impressions Abdomen/Pelvis CT 06/28/16 [id number] Signed Impressions: Service Date/Time: Tuesday, June 28, 2016 16:40 - CONCLUSION: 1. Fatty infiltration of the liver with mild hepatomegaly. 2. Large hiatal hernia. 3. Incidental note made of an IVC filter. 4. Stable compared to prior examination. Eric Stovall MD Patient does have some transaminitis consistent with cirrhosis, total bilirubin is normal. Coags within normal limits. Patient is given pain medicine on re- examination abdomen is soft and nontender and benign. Patient's friend has called the emergency department multiple times asking the patient is medically stable to be taken to [facility]. Discussed with the patient that if her abdominal pain is feeling better with a negative CAT scan a lactic acid better after fluid bolus that she is stable for discharge. Patient would like to go to detoxification at this time. She is medically stable to do so. Her friend is arrived is clinically sober and is going to drive her there. Diagnosis Primary Impression: Dehydration Additional Impression: Abdominal pain Qualified Code: R10.9 - Abdominal pain, unspecified location Additional Instructions: Patient seen and examined at [place] emergency room, CT abdomen negative, patient is feeling better. He is at risk for withdrawals stable for discharge at this time. Medically stable for evaluation is at [facility] at this time. Disposition: 01 DISCHARGE HOME Condition: Stable Elkin Salas MD Jun 28, 2016 19:12
--- NOTE | 2016-06-29 15:55 | EKG ---
Date Performed: 06/28/2016 Time Performed: 15:14:23 PTAGE: 55 years EKG: Sinus rhythm When compared to previous tracing, no significant change. NORMAL ECG PREVIOUS TRACING : 06/21/2016 19.53.18 DOCTOR: Gideon Callejas Interpretating Date/Time 06/29/2016 15:53:27
== END 2016-06-28 20:41 | disposition home or self-care (01) ==
LOC: NEPE 11:11
DX: E86.0 Dehydration (principal); R16.0 Hepatomegaly, not elsewhere classified; F10.120 Alcohol abuse with intoxication, uncomplicated; F17.210 Nicotine dependence, cigarettes, uncomplicated; Y90.7 Blood alcohol level of 200-239 mg/100 ml
CPT/HCPCS: 74177; 80053; 80320; 83605; 83690; 85025; 85610; 85730; 93005; 96361; 96365; 96375; 96376; 99284; J2060; J2270; J3411; J7030; Q9967

== ENCOUNTER 2016-07-09 06:38 | Inpatient (IN) | payer OTHER ==
[~2016-07-09] VITALS: Ht 180.3 cm; Wt 59.5 kg
[~2016-07-09 06:38] MED LIST changes: -HYDR-3516 PO
[2016-07-09 06:48] VITALS: BP 131/79; PULSE 63; RESP 16; TEMP 98.4; O2SAT 99
[2016-07-09] MEDS ORDERED: AMLO2.5T PO (07:00)
[2016-07-09] MEDS ORDERED: SODIUM CHLOR 0.9% 1000 ML INJ 1,000 ML IV ONE (07:13)
[2016-07-09 07:17] VITALS: RESP 18; O2SAT 100
[2016-07-09 07:30] LABS: AUTOMATED NEUTROPHIL # 1.4 TH/MM3 (1.8-7.7); BASOPHIL # 0.1 TH/MM3 (0-0.2); EOSINOPHIL % 0.9 % (0.0-4.0); HEMATOCRIT 33.3 % (35.0-46.0); HEMO FLAGS DIFF FINAL; LYMPH % 33.2 % (9.0-44.0); MEAN CELL VOLUME 94.7 FL (80.0-100.0); MEAN CORPUSCULAR HEMOGLOBIN 31.5 PG (27.0-34.0); MEAN CORPUSCULAR HGB CONC 33.3 % (32.0-36.0); MONO % 17.6 % (0.0-8.0); NEUT % 46.3 % (16.0-70.0); PLATELET COUNT 272 TH/MM3 (150-450); RED BLOOD COUNT 3.52 MIL/MM3 (4.00-5.30); RED CELL DISTRIBUTION WIDTH 16.5 % (11.6-17.2)
[2016-07-09 07:41] LABS: ALT (GPT) 41 U/L (10-53); ANION GAP 12 MEQ/L (5-15); AST (GOT) 21 U/L (15-37); BLOOD UREA NITROGEN 8 MG/DL (7-18); CHLORIDE 108 MEQ/L (98-107); GLOMERULAR FILTRATION RATE 94 ML/MIN (>89); POTASSIUM 3.6 MEQ/L (3.5-5.1); SODIUM (NA) 143 MEQ/L (136-145)
[2016-07-09 07:43] LABS: ALKALINE PHOSPHATASE 88 U/L (45-117); TOTAL BILIRUBIN ADULT 0.3 MG/DL (0.2-1.0)
[2016-07-09 08:09] LABS: BACTERIA, URINE MOD /hpf; BLOOD, URINE NEG (NEG); COMMENT (UR) CULTURE INDICATED; CULTURE IF INDICATED CULTURE INDICATED; GLUCOSE,URINE NEG (NEG); KETONE, URINE NEG (NEG); MUCUS URINE FEW /lpf (OCC); NITRITE,URINE NEG (NEG); PH, URINE 5.5 (5.0-8.5); SQUAMOUS EPITHELIAL CELL URINE 1 /hpf (0-5); URINE COLOR YELLOW (YELLW/STRAW)
[2016-07-09 08:15] LABS: AMPHETAMINE, URINE NEG (NEG); BARBITURATES, URINE POS (NEG); COCAINE, URINE NEG (NEG)
--- NOTE | 2016-07-09 08:16 | PD ---
HPI Chief Complaint: Seizure Time Seen by Provider: 07:12 Travel History International Travel<30 days: No Contact w/Intl Traveler<30days: No Traveled to known affect area: No History of Present Illness HPI 55-year-old female presents after a witnessed general tonic-clonic seizure at [facility] by report. Patient states she has been there since Friday evening for alcohol rehabilitation. She states that her last alcohol was Friday morning before going in. She states right before that she was at [facility] getting Ativan for seizures. She states that they did not have her on a different seizure medication but she's been on Depakote in the past. She does not follow with a neurologist. She denies complaints other than a headache. Quality is achy. Severity is all over. She denies specific modifying factors. PFSH Past Medical History Hx Anticoagulant Therapy: Yes (XARELTO ) Blood Disorders: No Bipolar Disorder: Yes Anxiety: Yes Depression: Yes Heart Rhythm Problems: No Cancer: No Cardiovascular Problems: Yes (MURMUR) High Cholesterol: No Chest Pain: No Congestive Heart Failure: No Cerebrovascular Accident: Yes (CVA 2000) Diminished Hearing: No Endocrine: No Gastrointestinal Disorders: Yes (abdominal pain, pancreatitis) Genitourinary: Yes (essence this admission ) Immune Disorder: No Musculoskeletal: Yes (left sided weakness r/t cva) Neurologic: Yes (fibromyalia, old CVA) Psychiatric: Yes (bipolar) Reproductive: No Respiratory: No Immunizations Current: Yes Pancreatitis: Yes Seizures: Yes Tetanus Vaccination: Unknown ?: Not Past Surgical History Other Surgery: No Social History Alcohol Use: Yes (etoh abuse) Tobacco Use: Yes (1PPD) Substance Use: Yes (OPIATES) Allergies-Medications (Allergen,Severity, Reaction): Coded Allergies: No Known Allergies (Unverified , 07/09/16) Reported Meds & Prescriptions Reported Meds & Active Scripts Active Multivitamin Adults (Multiple Vitamins W/ Minerals) 1 Tab 1 Tab PO DAILY 30 Days Reported Ativan (Lorazepam) 0.5 Mg Tab 0.5 Mg PO Q4H PRN Amlodipine (Amlodipine Besylate) 2.5 Mg Tab 2.5 Mg PO DAILY Review of Systems Except as stated in HPI: all other systems reviewed are Neg Physical Exam Narrative GENERAL: Well-nourished, well-developed patient. SKIN: Warm and dry. HEAD: Normocephalic and atraumatic. EYES: No injection or drainage. Pupils equal ENT: No nasal drainage noted. NECK: Supple, trachea midline. Nontender in midline CARDIOVASCULAR: Regular rate and rhythm RESPIRATORY: Breath sounds equal bilaterally. No accessory muscle use. GASTROINTESTINAL: Abdomen soft, non-tender, nondistended. NEUROLOGICAL: Awake and alert. Motor and sensory grossly within normal limits. Normal speech. Data Data Last Documented VS Vital Signs Date Time Temp Pulse Resp B/P Pulse Ox O2 Delivery O2 Flow Rate FiO2 07/09/16 09:10 71 18 130/83 100 Room Air 07/09/16 06:48 98.4 Orders Complete Blood Count With Diff (07/09/16 07:13) Alcohol (Ethanol) (07/09/16 07:13) Drug Screen, Random Urine (07/09/16 07:13) Electrocardiogram (07/09/16 ) Ct Brain W/O Iv Contrast(Rout) (07/09/16 ) Blood Glucose (07/09/16 07:13) Ecg Monitoring (07/09/16 07:13) Iv Access Insert/Monitor (07/09/16 07:13) Oximetry (07/09/16 07:13) Comprehensive Metabolic Panel (07/09/16 07:13) Sodium Chlor 0.9% 1000 Ml Inj (Ns 1000 M (07/09/16 07:13) Sodium Chloride 0.9% Flush (Ns Flush) (07/09/16 07:15) Urinalysis - C+S If Indicated (07/09/16 07:13) Phenytoin (Dilantin) (07/09/16 07:49) Valproic Acid (Depakene) (07/09/16 07:49) Urine Culture (07/09/16 07:55) Lorazepam Inj (Ativan Inj) (07/09/16 08:30) Mri Brain W&W/O Contrast (07/09/16 ) Phenobarbital (07/09/16 07:19) Diet Npo Except Meds (07/09/16 Lunch) Activity Bed Rest (07/09/16 10:14) Nursing Bedside Swallow Assess .ONCE (07/09/16 10:14) Vital Signs (Adult) JONATAN.Q4H (07/09/16 10:14) Dext 5%-Nacl 0.9% 1... W/Potassium Chlor (07/09/16 11:00) Admit Order (Ed Use Only) (07/09/16 10:20) Labs Laboratory Tests Test 07/09/16 07/09/16 07/09/16 07:13 07:19 07:55 Urine Opiates Screen NEG Urine Barbiturates Screen POS Urine Amphetamines Screen NEG Urine Benzodiazepines Screen POS Urine Cocaine Screen NEG Urine Cannabinoids Screen NEG White Blood Count 3.0 TH/MM3 Red Blood Count 3.52 MIL/MM3 Hemoglobin 11.1 GM/DL Hematocrit 33.3 % Mean Corpuscular Volume 94.7 FL Mean Corpuscular Hemoglobin 31.5 PG Mean Corpuscular Hemoglobin 33.3 % Concent Red Cell Distribution Width 16.5 % Platelet Count 272 TH/MM3 Mean Platelet Volume 7.9 FL Neutrophils (%) (Auto) 46.3 % Lymphocytes (%) (Auto) 33.2 % Monocytes (%) (Auto) 17.6 % Eosinophils (%) (Auto) 0.9 % Basophils (%) (Auto) 2.0 % Neutrophils # (Auto) 1.4 TH/MM3 Lymphocytes # (Auto) 1.0 TH/MM3 Monocytes # (Auto) 0.5 TH/MM3 Eosinophils # (Auto) 0.0 TH/MM3 Basophils # (Auto) 0.1 TH/MM3 CBC Comment DIFF FINAL Differential Comment Sodium Level 143 MEQ/L Potassium Level 3.6 MEQ/L Chloride Level 108 MEQ/L Carbon Dioxide Level 23.0 MEQ/L Anion Gap 12 MEQ/L Blood Urea Nitrogen 8 MG/DL Creatinine 0.65 MG/DL Estimat Glomerular Filtration 94 ML/MIN Rate Random Glucose 89 MG/DL Calcium Level 8.6 MG/DL Total Bilirubin 0.3 MG/DL Aspartate Amino Transf 21 U/L (AST/SGOT) Alanine Aminotransferase 41 U/L (ALT/SGPT) Alkaline Phosphatase 88 U/L Total Protein 6.5 GM/DL Albumin 3.4 GM/DL Phenytoin (Dilantin) Level LESS THAN 0.4 MCG/ML Valproic Acid (Depakene) Level 3 MCG/ML Phenobarbital Level LESS THAN 2.1 MCG/ML Ethyl Alcohol Level LESS THAN 3 MG/DL Urine Color YELLOW Urine Turbidity CLEAR Urine pH 5.5 Urine Specific [place] 1.010 Urine Protein NEG mg/dL Urine Glucose (UA) NEG mg/dL Urine Ketones NEG mg/dL Urine Occult Blood NEG Urine Nitrite NEG Urine Bilirubin NEG Urine Urobilinogen LESS THAN 2.0 MG/DL Urine Leukocyte Esterase NEG Urine RBC LESS THAN 1 /hpf Urine WBC 1 /hpf Urine Squamous Epithelial 1 /hpf Cells Urine Bacteria MOD /hpf Urine Mucus FEW /lpf Microscopic Urinalysis Comment CULTURE INDICATED MDM Medical Decision Making Medical Screen Exam Complete: Yes Emergency Medical Condition: Yes Medical Record Reviewed: Yes (past history confirm, [facility] Interpretation(s) CBC & BMP Diagram 07/09/16 07:19 Last [address] 07/09/16 0000 Signed Impressions: Service Date/Time: Saturday, July 09, 2016 08:09 - CONCLUSION: 1. Area of low-density right frontal lobe seen. Contrasted MRI recommended for further characterization. Brandyn Eli MD Last [address] 07/09/16 0000 Signed Impressions: Service Date/Time: Saturday, July 09, 2016 08:09 - CONCLUSION: 1. Area of low-density right frontal lobe seen. Contrasted MRI recommended for further characterization. Brandyn Eli MD Brain MRI 07/09/16 0000 Signed Impressions: Service Date/Time: Saturday, July 09, 2016 11:40 - CONCLUSION: Focal area of hemorrhage in the right frontal lobe with significant surrounding vasogenic edema and low grade enhancement after contrast. It is difficult to rule out an underlying mass with some adjacent hemorrhage. With essentially negative CT of the brain on 06/21/16 this is concerning for an underlying malignancy; i.e., there was no hemorrhage at the time of that study. David Henry MD Differential Diagnosis Alcohol withdrawal, seizure disorder, intracranial, electrolyte Narrative Course Will check blood work, imaging and dose with Ativan and reevaluate ED workup shows area of lower attenuation in frontal lobe, MRI ordered. Will admit to the hospital for further care and discuss with neurology Patient with no further seizure here. Updated about CT scan and awaiting MRI MRI shows possible bleed with edema, will discuss with neurosurgery. No change in status with patient. Decadron was ordered Cerebyx ordered and will continue to be monitored in the hospital Critical Care Narrative Aggregate critical care time was 35 minutes. Time to perform other separately billable procedures was not included in the critical care time. My time did not include minutes spent treating any other patients simultaneously or on activities that did not directly contribute to the patient's treatment. The services I provided to this patient were to treat and/or prevent clinically significant deterioration that could result in: Status epilepticus, progression of bleeding I provided critical care services requiring my management, as noted below: Chart data review, documentation time, medication orders and management, vital sign assessments/reviewing monitor data, ordering and reviewing lab tests, ordering and interpreting/reviewing x-rays and diagnostic studies, care of the patient and discussion of the patient with the admitting physicians. Physician Communication Physician Communication dr sepulveda agrees to admit dr phelps will follow, no seizure meds for now, if has another seizure to call dr ibarra states to place on cerebyx, agrees to decadron and ok for floor, will see patient Diagnosis Primary Impression: Vasogenic brain edema Additional Impressions: Right frontal lobe punctate hemorrhage Seizure Admitting Information Admitting Physician Requests: Admit Uma Humphrey MD Jul 09, 2016 08:16
--- NOTE | 2016-07-09 08:22 | RADRPT ---
EXAM DATE/TIME: 07/09/2016 08:09 [facility] COMPARISON: No previous studies available for comparison. INDICATIONS : Patient had seizure this morning RADIATION DOSE: 36.17 CTDIvol (mGy) MEDICAL HISTORY : Cardiovascular disease. Cardiovascular disease Seizures. SURGICAL HISTORY : None. ENCOUNTER: Initial ACUITY: 1 day PAIN SCALE: 6/10 LOCATION: cranial TECHNIQUE: Multiple contiguous axial images were obtained of the head. Using automated exposure control and adj ustment of the mA and/or kV according to patient size, radiation dose was kept as low as reasonably a chievable to obtain optimal diagnostic quality images. FINDINGS: CEREBRUM: Area of decreased attenuation in the right frontal lobe. The ventricles are normal for age. No evide nce of midline shift, mass lesion, hemorrhage or acute infarction. No extra-axial fluid collections are seen. POSTERIOR FOSSA: The cerebellum and brainstem are intact. The 4th ventricle is midline. The cerebellopontine angle i s unremarkable. EXTRACRANIAL: The visualized portion of the orbits is intact. SKULL: The calvaria is intact. No evidence of skull fracture. CONCLUSION: 1. Area of low-density right frontal lobe seen. Contrasted MRI recommended for further characterizati on. Brandyn Eli MD on July 09, 2016 at 8:14 Board Certified Radiologist. This report was verified electronically.
[2016-07-09] MEDS ORDERED: LORazepam 2 MG/ML VIAL IV PUSH ONE (08:30)
[2016-07-09 09:10] VITALS: BP 130/83; PULSE 71; RESP 18; O2SAT 100
[2016-07-09 09:49] LABS: PHENOBARBITAL LESS THAN 2.1 MCG/ML (15.0-40.0)
[2016-07-09] MEDS ORDERED: LORA-392 PO (09:59)
[2016-07-09 10:51] VITALS: BP 131/84; PULSE 66; RESP 16; O2SAT 100
[2016-07-09] MEDS: POTASSIUM CHLORIDE INJ 10 MEQ in DEXT 5%-NACL 0.9% 1000 ML INJ 1,000 ML IV SCH (10:59)
[2016-07-09] MEDS ORDERED: GADODIAMIDE PF 287 MG/ML 5 ML VIAL (for RAD MRI) IV ONE (12:01)
--- NOTE | 2016-07-09 13:22 | RADRPT ---
EXAM DATE/TIME: 07/09/2016 11:40 [facility] COMPARISON: No previous studies available for comparison. INDICATIONS: Cephalgia. Seizure. CONTRAST: 12 cc Omniscan (gadodiamide) IV MEDICAL HISTORY: Hypertension. SURGICAL HISTORY: Left breast biopsy. ENCOUNTER: Subsequent ACUITY: 2 day PAIN SCORE: 3/10 LOCATION: Cranial TECHNIQUE: Multiplanar, multisequence MRI of the brain was performed with and without contrast. FINDINGS: There is an abnormality in the right frontal lobe. On the flare images there is significant vasogeni c edema throughout the right frontal lobe. It does not traverse the corpus callosum. The area of ed thao measures 4.6 x 2.7 cm across. Along the superior aspect of the edema is an area of spontaneously bright signal on the T1 images alfredo suring 1.9 x 1.0 cm across likely hemorrhage. There is some areas of lower signal on the T2 images a round that area; however, there is some low grade enhancement around the suspected hemorrhage on the post contrast images. With the underlying vasogenic edema and peripheral enhancement there is concer n for an underlying mass although there is certainly hemorrhage present in this region. The rest of the brain is unremarkable. No other abnormal areas of enhancement are identified. T1 ax ial and coronal delayed images fail to demonstrate any other parenchymal areas of enhancement. CONCLUSION: Focal area of hemorrhage in the right frontal lobe with significant surrounding vasogenic edema and l ow grade enhancement after contrast. It is difficult to rule out an underlying mass with some adjace nt hemorrhage. With essentially negative CT of the brain on 06/21/16 this is concerning for an underl andrae malignancy; i.e., there was no hemorrhage at the time of that study. David Henry MD on July 09, 2016 at 13:14 Board Certified Radiologist. This report was verified electronically.
[2016-07-09] MEDS ORDERED: DEXAMETHASONE SOD PHOS 4 MG/ML VIAL IV PUSH ONE (13:45)
[2016-07-09] MEDS: chlordiazePOXIDE 25 MG CAP PO SCH ×2 (14:02→19:45)
[2016-07-09] MEDS ORDERED: FOSPHENYTOIN INJ 1,000 MGPE in SODIUM CHLORIDE 0.9% INJ 50 ML IV ONE (14:15)
[2016-07-09 15:05] VITALS: BP 165/92; PULSE 76; RESP 16; O2SAT 98
--- NOTE | 2016-07-09 16:19 | EKG ---
Date Performed: 07/09/2016 Time Performed: 06:36:51 PTAGE: 55 years EKG: Sinus rhythm POSSIBLE LEFT ATRIAL ENLARGEMENT POSSIBLE RIGHT VENTRICULAR CONDUCTION DELAY Compared to prior alexsander ng no significant change BORDERLINE ECG PREVIOUS TRACING 06/28/16 @15.14.23 DOCTOR: Edgar March Interpretating Date/Time 07/09/2016 16:18:15
--- NOTE | 2016-07-09 16:35 | MG ---
cc: ISABEL KIDD Lab No: [id number] Date: 07/09/2016 Age: Sex: F Race: TECHNIQUE [address] of the background rhythm symmetrical alpha rhythm frequency is 8 Hz amplitude is about 5-10 microvolts. There is some eye movement artifact and muscle artifact present. Hyperventilation was done with no change in the background rhythm. There is quite a bit of beta activity as well which is of the rapid rhythm, probably medication effect. I do not see any lateralizing features or epileptiform discharges. Photic results in a normal driving response. INTERPRETATION This is a normal EEG. MD RUSTY Odonnell/brock /3:00 PM /4:35 PM
--- NOTE | 2016-07-09 18:05 | HHI.HP ---
HPI Service [facility] Primary Care Physician No Primary Care Physician Admission Diagnosis seizure, abnormal ct Diagnoses: Chief Complaint: Seizure Travel History International Travel<30 Days: No Contact w/Intl Traveler <30 Da: No Traveled to Known Affected Are: No History of Present Illness Patient is a 55-year-old female right handed with history of chronic alcoholism with periods of sobriety in between. About 2 months ago patient started drinking again and was entirely went to [facility] Friday rrehabilitation. . This a.m. patient went into generalized tonic-clonic seizure witnessed by staff as she was getting out of the bathroom. And was promptly sent over here for further evaluation and management. At [facility] treatment center she was on a regimen of Ativan IV when necessary, clonidine, amlodipine, Vistaril. . Patient with history of bipolar disorder seeing a therapist. At one point in the past she was on Depakote and Klonopin. He denies any history of suicidal tendencies. She has history of hypertension and in [facility] [place] she was placed on amlodipine 5 mg daily. On further questioning she has been having right front-parietal headache l headache associated with some nausea- pretty steady.. She states that last week she fell and hit her head in the bathroom sink. 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 She states that she got herself back to her present state of near baseline. She is baseline up and ambulatory with no assistive devices. States she's been having some diarrhea for the past week brown stools no melena or hematochezia. Patient admitted for further evaluation and management. Patient now recalls that about a week ago she fell and hit her head on the bathroom sink Review of Systems Constitutional: DENIES: Diaphoretic episodes, Fatigue, Fever, Weight gain, Weight loss, Chills, Dizziness, Change in appetite, Night Sweats Endocrine: DENIES: Abnorml menstrual pattern, Heat/cold intolerance, Polydipsia , Polyuria, Polyphagia Eyes: DENIES: Blurred vision, Diplopia, Eye inflammation, Eye pain, Vision loss , Photosensitivity, Double Vision Ears, nose, mouth, throat: DENIES: Tinnitus, Hearing loss, Vertigo, Nasal discharge, Oral lesions, Throat pain, Hoarseness, Ear Pain, Running Nose, Epistaxis, Sinus Pain, Toothache, Odynophagia Respiratory: DENIES: Apneas, Cough, Snoring, Wheezing, Hemoptysis, Sputum production, Shortness of breath Cardiovascular: DENIES: Chest pain, Palpitations, Syncope, Dyspnea on Exertion , PND, Lower Extremity Edema, Orthopnea, Claudication Gastrointestinal: DENIES: Abdominal pain, Black stools, Bloody stools, Constipation, Diarrhea, Nausea, Vomiting, Difficulty Swallowing, Anorexia Genitourinary: DENIES: Abnormal vaginal bleeding, Dysmenorrhea, Dyspareunia, Sexual dysfunction, Urinary frequency, Urinary incontinence, Urgency, Hematuria , Dysuria, Nocturia, Vaginal discharge Musculoskeletal: DENIES: Joint pain, Muscle aches, Stiffness, Joint Swelling, Back pain, Neck pain Integumentary: DENIES: Abnormal pigmentation, Pruritus, Rash, Nail changes, Breast masses, Breast skin changes, Nipple discharge Hematologic/lymphatic: DENIES: Bruising, Lymphadenopathy Immunologic/allergic: DENIES: Eczema, Urticaria Neurologic: COMPLAINS OF: Localized weakness (mild left-sided weakness) Psychiatric: DENIES: Anxiety, Confusion, Mood changes, Depression, Hallucinations, Agitation, Suicidal Ideation, Homicidal Ideation, Delusions Past Family Social History Past Medical History History of hypertension Chronic alcoholism History of bipolar disorder History of CVA 1999 with residual left-sided weakness Past Surgical History No major surgeries Reported Medications Ativan Clonidine Amlodipine Vistaril Allergies: Coded Allergies: No Known Allergies (Unverified , 07/09/16) Family History Noncontributory Social History Admits to drinking "" alcohol Smoking 1 pack per day Denies any substance abuse Physical Exam Vital Signs Vital Signs Date Time Temp Pulse Resp B/P Pulse Ox O2 Delivery O2 Flow Rate FiO2 07/09/16 15:05 76 16 165/92 98 Room Air 07/09/16 10:51 66 16 131/84 100 Room Air 07/09/16 09:10 71 18 130/83 100 Room Air 07/09/16 07:17 18 100 Room Air 07/09/16 06:48 98.4 63 16 131/79 99 Physical Exam GENERAL: well-developed patient, in no apparent distress. SKIN: No rashes, ecchymoses or lesions. Cool and dry. HEAD: Atraumatic. Normocephalic. No temporal or scalp tenderness. EYES: Pupils equal round and reactive. Extraocular motions intact. No scleral icterus. No injection or drainage. ENT: Nose without bleeding, purulent drainage or septal hematoma. Throat without erythema. Airway patent. NECK: Trachea midline. No JVD or lymphadenopathy. Supple, nontender, no meningeal signs. CARDIOVASCULAR: Regular rate and rhythm without murmurs, gallops, or rubs. RESPIRATORY: Clear to auscultation. Breath sounds equal bilaterally. No wheezes , rales, or rhonchi. GASTROINTESTINAL: Abdomen soft, non-tender, nondistended. or palpable masses. No guarding. MUSCULOSKELETAL: Extremities without clubbing, cyanosis, or edema. No joint tenderness, effusion, or edema noted. No calf tenderness. Negative Homans sign bilaterally. NEUROLOGICAL: Awake and alert. Cranial nerves II through XII intact. Very mild left-sided weakness. Gait slow steady. Grossly no sensory deficits Laboratory Laboratory Tests Test 07/09/16 07/09/16 07/09/16 07:13 07:19 07:55 Urine Opiates Screen NEG Urine Barbiturates Screen POS Urine Amphetamines Screen NEG Urine Benzodiazepines Screen POS Urine Cocaine Screen NEG Urine Cannabinoids Screen NEG White Blood Count 3.0 Red Blood Count 3.52 Hemoglobin 11.1 Hematocrit 33.3 Mean Corpuscular Volume 94.7 Mean Corpuscular Hemoglobin 31.5 Mean Corpuscular Hemoglobin 33.3 Concent Red Cell Distribution Width 16.5 Platelet Count 272 Mean Platelet Volume 7.9 Neutrophils (%) (Auto) 46.3 Lymphocytes (%) (Auto) 33.2 Monocytes (%) (Auto) 17.6 Eosinophils (%) (Auto) 0.9 Basophils (%) (Auto) 2.0 Neutrophils # (Auto) 1.4 Lymphocytes # (Auto) 1.0 Monocytes # (Auto) 0.5 Eosinophils # (Auto) 0.0 Basophils # (Auto) 0.1 CBC Comment DIFF FINAL Differential Comment Sodium Level 143 Potassium Level 3.6 Chloride Level 108 Carbon Dioxide Level 23.0 Anion Gap 12 Blood Urea Nitrogen 8 Creatinine 0.65 Estimat Glomerular Filtration 94 Rate Random Glucose 89 Calcium Level 8.6 Total Bilirubin 0.3 Aspartate Amino Transf 21 (AST/SGOT) Alanine Aminotransferase 41 (ALT/SGPT) Alkaline Phosphatase 88 Total Protein 6.5 Albumin 3.4 Phenytoin (Dilantin) Level LESS THAN 0.4 Valproic Acid (Depakene) Level 3 Phenobarbital Level LESS THAN 2.1 Ethyl Alcohol Level LESS THAN 3 Urine Color YELLOW Urine Turbidity CLEAR Urine pH 5.5 Urine Specific [place] 1.010 Urine Protein NEG Urine Glucose (UA) NEG Urine Ketones NEG Urine Occult Blood NEG Urine Nitrite NEG Urine Bilirubin NEG Urine Urobilinogen LESS THAN 2.0 Urine Leukocyte Esterase NEG Urine RBC LESS THAN 1 Urine WBC 1 Urine Squamous Epithelial 1 Cells Urine Bacteria MOD Urine Mucus FEW Microscopic Urinalysis Comment CULTURE INDICATED Date/Time Procedure Status Source Growth 07/09/16 07:55 Urine Culture Received Urine Clean Catch Pending Result Diagram: 07/09/1671807/09/16718 Imaging Last Impressions Head CT 07/09/16 0000 Signed Impressions: Service Date/Time: Saturday, July 09, 2016 08:09 - CONCLUSION: 1. Area of low-density right frontal lobe seen. Contrasted MRI recommended for further characterization. Brandyn Eli MD Brain MRI 07/09/16 0000 Signed Impressions: Service Date/Time: Saturday, July 09, 2016 11:40 - CONCLUSION: Focal area of hemorrhage in the right frontal lobe with significant surrounding vasogenic edema and low grade enhancement after contrast. It is difficult to rule out an underlying mass with some adjacent hemorrhage. With essentially negative CT of the brain on 06/21/16 this is concerning for an underlying malignancy; i.e., there was no hemorrhage at the time of that study. David Henry MD Assessment and Plan Assessment and Plan Patient is a 55-year-old female with history of chronic alcoholism presenting with generalized tonic-clonic seizures on imaging study shows some frontal lobe mass hemorrhage versus tumor with some budget vasogenic edema History of CVA with residual left-sided weakness from 1999 New onset seizure - witnessed.- Patient is already on scheduled Ativan for detox so ? if this is ETOH withdrawal issue History of previous CVA with residual mild left hemiparesis Will continue benzodiazepine Librium 50 mg every 6 Negative EEG , but with frontal lobe mass and edema we will start patient on seizure medications Start on Cerebryx IV q 8- Gary Arndt consulted Dr. Ossi- consulted- neurology PT consult in am Frontal lobe mass versus meningioma versus hematoma with some vasogenic edema- per patient status post fall a week ago We'll start patient on Decadron 4 mg every 6. History of chronic alcoholism with periods of sobriety was in was to watch [facility] [place] for detox, will start patient on Librium 50 mg every 6 Hypertension monitor for now PPI for GI prophylaxis Teds for DVT prophylaxis Physician Certification 2 Midnight Certification Type: Admission for Inpatient Services Order for Inpatient Services The services are ordered in accordance with Medicare regulations or non- Medicare payer requirements, as applicable. In the case of services not specified as inpatient-only, they are appropriately provided as inpatient services in accordance with the 2-midnight benchmark. Estimated LOS (days): 3 days is the estimated time the patient will need to remain in the hospital, assuming treatment plan goals are met and no additional complications. Post-Hospital Plan: Not yet determined Aleksander Ingram MD Jul 09, 2016 18:05
[2016-07-09] MEDS ORDERED: LORazepam 2 MG/ML VIAL IV PUSH PRN (18:15)
[2016-07-09 18:51] VITALS: BP 137/93; PULSE 81; RESP 20; TEMP 98.7; O2SAT 99
[2016-07-09] MEDS: PANTOPRAZOLE SODIUM 40 MG VIAL IV PUSH SCH (18:58)
[2016-07-09] MEDS: DEXAMETHASONE SOD PHOS 4 MG/ML VIAL IV PUSH SCH (19:45)
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
[2016-07-09] MEDS ORDERED: VALPROATE INJ 500 MG in SODIUM CHLORIDE 0.9% INJ 100 ML IV ONE (21:45)
[2016-07-09] MEDS: FOSPHENYTOIN SODIUM 100 MG PE/2 ML VIAL IV SCH (22:00)
[2016-07-09] MEDS: LORazepam 2 MG/ML VIAL IV PUSH PRN (23:14)
[2016-07-10] MEDS: DEXAMETHASONE SOD PHOS 4 MG/ML VIAL IV PUSH SCH ×5 (00:41→23:47)
[2016-07-10 01:20] VITALS: BP 118/72; PULSE 65; RESP 16; TEMP 97.7; O2SAT 100
[2016-07-10] MEDS: chlordiazePOXIDE 25 MG CAP PO SCH ×5 (01:58→23:46)
[2016-07-10] MEDS: LORazepam 2 MG/ML VIAL IV PUSH PRN ×2 (05:00→12:37)
[2016-07-10] MEDS: POTASSIUM CHLORIDE INJ 10 MEQ in DEXT 5%-NACL 0.9% 1000 ML INJ 1,000 ML IV SCH ×3 (05:07→23:47)
[2016-07-10 05:35] VITALS: BP 114/68; PULSE 65; RESP 16; TEMP 97.6; O2SAT 99
[2016-07-10] MEDS: FOSPHENYTOIN SODIUM 100 MG PE/2 ML VIAL IV SCH ×2 (05:56→15:20)
--- NOTE | 2016-07-10 07:01 | MB ---
cc: [employer] DATE OF CONSULTATION 07/09/2016 REASON FOR CONSULTATION Seizures. HISTORY OF PRESENT ILLNESS Ms. Stevens is a 55-year-old female with a past medical history of chronic alcoholism who currently is in [facility] for rehab. The patient states that she had several seizures, four to five times that were always related to alcohol withdrawal and she used to be on Depakote that worked very well for her as she states but this was discontinued because of insurance problems. The patient states that the last time she had alcohol was on Friday morning and then on Friday the patient went into generalized tonic-clonic seizure witnessed by staff when she was getting out of the bathroom. The medication she was on at the rehab center was Ativan, clonidine, amlodipine and Vistaril. She also has a past medical history of bipolar disorder and was at a certain point in time on Depakote and Klonopin. The patient also states that she has history of stroke with residual left-sided weakness. REVIEW OF SYSTEMS A 12-point review of systems is negative except for what is stated in the HPI. PAST MEDICAL HISTORY 1. Hypertension. 2. Chronic alcoholism. 3. Bipolar disorder. 4. Stroke with residual left-sided weakness. PAST MEDICAL HISTORY Non-contributory. MEDICATIONS 1. Ativan. 2. Clonidine. 3. Amlodipine. 4. Vistaril. ALLERGIES No known drug allergies. FAMILY HISTORY Noncontributory. SOCIAL HISTORY Admits to drinking alcohol. Smokes one pack per day and denies substance abuse. PHYSICAL EXAMINATION GENERAL: Good historian and looks in no apparent distress. HEENT: Atraumatic, normocephalic. Intact vision. Intact hearing. NECK: Trachea in the midline. No carotid bruit signs. No signs of meningeal irritation. CARDIOVASCULAR: Regular rate and rhythm. RESPIRATORY: Clear to auscultation. No wheezes. MUSCULOSKELETAL:Extremities without clubbing. Bilateral hand tremor. No cyanosis , no edema. NEUROLOGICAL: Awake, alert, oriented to time, person and place. No slurring of speech. No dysphagia. Cranial nerve examination with pupils equally reacting to light. Intact external ocular motility. No facial asymmetry. No facial numbness. Bilateral hand tremor/asterixis. Normal tone on the right upper and lower extremity. Hypertonia/spasticity of the left upper and lower extremity. Muscle strength 5/5 bilateral, symmetrical on the right upper and lower extremity. Grade 5-minus left shoulder abduction and wrist extension and left foot dorsiflexion. The rest of the muscle strength assessment is 5/5. Sensation is intact bilateral, symmetrical to pain and temperature. Acelso-ll-tnxh and rwuh-jl-axhm is normal. Reflexes 1+ right upper and lower extremity, 2+ on finger flexion on the left side. Plantars are bilaterally downgoing. Cifiyn-[id number] and gdjh-[id number]-hedy are normal. DIAGNOSTIC IMAGING - Head CT scan without contrast revealed an area of low-density right frontal lobe. - MRI brain revealed focal area of hemorrhage in the right frontal lobe with significant surrounding vasogenic edema and low-grade enhancement after contrast. It is difficult to rule out an underlying mass with some adjacent hemorrhage. With essentially negative CT of the brain, it is concerning for an underlying malignancy that is there with no hemorrhage at the time of that study. - EEG with no reported ictal activity, normal. PLAN 1. Neuro checks q. 4 hours. 2. Start Depakote 500 mg twice daily.Works well for both seizure and mood stabilizer/history of bipolar disorder. 3. Wean gradually the Dilantin. Dilantin was initially subtherapeutic. We will check Depakote level. 4. Seizure precautions. 5. Seizure protocol. 6. Elevate head of bed. 7. Dexamethasone 1 mg q. 6 hours. 8. GI prophylaxis. 9. DVT prophylaxis. Thank you for asking me to participate in the care of your patient. MD ZUHAIR Lynn/SHIRIN /12:32 AM /6:38 AM DAMARIS
[2016-07-10 08:00] VITALS: BP 102/59; PULSE 78; RESP 16; TEMP 97.1; O2SAT 98
[2016-07-10] MEDS ORDERED: VALPROIC ACID 250 MG CAP PO SCH (09:00)
[2016-07-10 12:00] VITALS: BP 134/90; PULSE 72; RESP 16; TEMP 99.7; O2SAT 99
--- NOTE | 2016-07-10 13:54 | HHI.PR ---
Subjective Remarks patient is awake and alert no complains of headache, nausea or vomiting states feels a little stronger still mildly tremulous- required prn Ativan overnight Objective Vitals Vital Signs Date Time Temp Pulse Resp B/P Pulse Ox O2 Delivery O2 Flow Rate FiO2 07/10/16 08:00 97.1 78 16 102/59 98 07/10/16 05:35 97.6 65 16 114/68 99 07/10/16 01:20 97.7 65 16 118/72 100 07/09/16 18:51 98.7 81 20 137/93 99 07/09/16 15:05 76 16 165/92 98 Room Air I/O 07/09/16 07/09/16 07/09/16 07/10/16 07/10/16 07/10/16 07:00 15:00 23:00 07:00 15:00 23:00 # Voids 3 # Bowel Movements 0 Result Diagram: 07/09/16 0719 07/09/16 0719 Imaging Last Impressions Head CT 07/09/16 0000 Signed Impressions: Service Date/Time: Saturday, July 09, 2016 08:09 - CONCLUSION: 1. Area of low-density right frontal lobe seen. Contrasted MRI recommended for further characterization. Brandyn Eli MD Brain MRI 07/09/16 0000 Signed Impressions: Service Date/Time: Saturday, July 09, 2016 11:40 - CONCLUSION: Focal area of hemorrhage in the right frontal lobe with significant surrounding vasogenic edema and low grade enhancement after contrast. It is difficult to rule out an underlying mass with some adjacent hemorrhage. With essentially negative CT of the brain on 06/21/16 this is concerning for an underlying malignancy; i.e., there was no hemorrhage at the time of that study. David Henry MD Objective Remarks awake and alert, oriented x 3, speech soft but clear, ff all commands, tremulous anicteric, pupils equal no facial asymmetry, + gag,. tongue midline no nuchal rigidity lungs clear regular rhythm abdomen soft, nontender extremities no edema A/P Assessment and Plan Patient is a 55-year-old female with history of chronic alcoholism presenting with generalized tonic-clonic seizures on imaging study shows some frontal lobe mass hemorrhage versus tumor with some budget vasogenic edema History of CVA with residual left-sided weakness from 1999 New onset seizure - witnessed.- History of previous CVA with residual mild left hemiparesis Will continue benzodiazepine Librium 50 mg every 6 Negative EEG , but with frontal lobe mass and edema Neurology ff- started on Depakote PT consult in am Frontal lobe mass versus meningioma versus hematoma with some vasogenic edema- per patient status post fall a week ago on Decadron 4 mg every 6. History of chronic alcoholism with periods of sobriety was in was to watch [facility] for detox, Librium 50 mg increase to q 4. prn IV Ativan Hypertension monitor for now PPI for GI prophylaxis Teds for DVT prophylaxis PT/OT consult Nutrition- start ensure Aleksander Ingram MD Jul 10, 2016 13:54
[2016-07-10] MEDS: oxyCODONE/ACETAMINOPHEN 5 MG/325 MG TAB PO PRN ×2 (15:19→21:21)
[2016-07-10 16:00] VITALS: BP 120/78; PULSE 69; RESP 16; TEMP 98.9; O2SAT 97
[2016-07-10] MEDS: PANTOPRAZOLE SODIUM 40 MG VIAL IV PUSH SCH (17:48)
[2016-07-10] MEDS ORDERED: LORazepam 2 MG/ML VIAL IV PUSH PRN (18:00)
--- NOTE | 2016-07-10 19:31 | HHI.PR ---
Review/Management Diagnosis Seizure disorder/ Alcohol related Right frontal intracranial hemorrhage likely secondary to fall Alcohol withdrawal Bipolar disorder Plan - Neuro checks q. 4 hours. - Increase Depakote to 750 mg twice daily. - Wean off gradually the Dilantin, decreased dose to 100mg bid. - Seizure precautions. - CIWA protocol. - Elevate head of bed. - Dexamethasone 1 mg q. 6 hours. - GI prophylaxis. - DVT prophylaxis. Diagnosis/Plan: Subjective Subjective Comments No reported seizures Complains of generalized body aches Depakote level is subtherapeutic at 3. Active Medications Current Medications Medications (Trade) Dose Ordered Sig/Nathalie Route Start Time Stop Time Status Last Admin IV Flush 2 ml 2 ml UNSCH PRN IVF 07/09/16 07:15 (KCl Inj/D5W-NS 1000 ml Inj) 1,005 ml @ 70 mls/hr [id number] IV 07/09/16 11:00 07/10/16 05:07 (Decadron Inj) 4 mg Q6HR IV PUSH 07/09/16 19:00 07/10/16 17:47 (Cerebyx Inj) 100 mgpe Q8HR IV 07/09/16 22:00 07/10/16 15:20 (Protonix Inj) 40 mg Q24H IV PUSH 07/09/16 18:15 07/10/16 17:48 (Ativan Inj) 1 mg ONCE PRN IV PUSH 07/09/16 18:15 07/11/16 18:14 (Depakene) 500 mg Q12HR PO 07/10/16 09:00 07/10/16 08:45 (Librium) 50 mg Q4HR PO 07/10/16 16:00 07/10/16 15:20 (Ativan Inj) 1 mg Q6HR PRN IV PUSH 07/10/16 18:00 (Percocet 5-325 Mg) 1 tab Q6H PRN PO 07/10/16 15:15 07/10/16 15:19 Allergies Allergies Coded Allergies No Known Allergies (Unverified07/09/16) Exam I&O / VS 07/09/16 07/09/16 07/10/16 15:00 23:00 07:00 # Voids 3 # Bowel Movements 0 Vital Signs Date Time Temp Pulse Resp B/P Pulse Ox O2 Delivery O2 Flow Rate FiO2 07/10/16 16:00 98.9 69 16 120/78 97 07/10/16 12:00 99.7 72 16 134/90 99 07/10/16 08:00 97.1 78 16 102/59 98 07/10/16 05:35 97.6 65 16 114/68 99 07/10/16 01:20 97.7 65 16 118/72 100 Exam Comments GENERAL: Awake, alert, mild distress due to pain HEENT: Atraumatic, normocephalic. Intact vision. Intact hearing. NECK: Trachea in the midline. No carotid bruit signs. No signs of meningeal irritation. CARDIOVASCULAR: Regular rate and rhythm. RESPIRATORY: Clear to auscultation. No wheezes. MUSCULOSKELETAL:Extremities without clubbing. Bilateral hand tremor. No cyanosis , no edema. NEUROLOGICAL: Awake, alert, oriented to time, person and place. No slurring of speech. No dysphasia. Cranial nerve examination with pupils equally reacting to light. Intact external ocular motility. No facial asymmetry. No facial numbness. Bilateral hand tremor/asterixis. Normal tone on the right upper and lower extremity. Hypertonia/spasticity of the left upper and lower extremity. Muscle strength 5/5 bilateral, symmetrical on the right upper and lower extremity. Grade 5-/5 left shoulder abduction and wrist extension and left foot dorsiflexion. The rest of the muscle strength assessment is 5/5. Sensation is intact bilateral, symmetrical to pain and temperature. Qvcrmi-yj-lumo and zldh-co-frxt is normal. Reflexes 1+ right upper and lower extremity, 2+ on finger flexion on the left side. Plantars are bilaterally downgoing. Wkfuzr-xm-fboi and azju-rx-tqhp are normal. Objective Radiology Results Last [address] 07/09/16 0000 Signed Impressions: Service Date/Time: Saturday, July 09, 2016 08:09 - CONCLUSION: 1. Area of low-density right frontal lobe seen. Contrasted MRI recommended for further characterization. Brandyn Eli MD Brain MRI 07/09/16 0000 Signed Impressions: Service Date/Time: Saturday, July 09, 2016 11:40 - CONCLUSION: Focal area of hemorrhage in the right frontal lobe with significant surrounding vasogenic edema and low grade enhancement after contrast. It is difficult to rule out an underlying mass with some adjacent hemorrhage. With essentially negative CT of the brain on 06/21/16 this is concerning for an underlying malignancy; i.e., there was no hemorrhage at the time of that study. David Henry MD Micro and Labs Date/Time Procedure Status Source Growth 07/09/16 07:55 Urine Culture - Final Complete Urine Clean Catch 50-100,000 CFU/ML MIXED GRAM POSITIVE... Diagnostic Tests EEG is normal with no reported ictal activity Yusuf Mccord MD Jul 10, 2016 19:31
[2016-07-10 19:54] LABS: POTASSIUM 4.4 MEQ/L (3.5-5.1)
[2016-07-10 20:00] VITALS: BP 126/80; PULSE 73; RESP 18; TEMP 97.3; O2SAT 98
[2016-07-10] MEDS: PHENYTOIN SODIUM 100 MG CAP PO SCH (21:19)
[2016-07-10] MEDS: VALPROIC ACID 250 MG CAP PO SCH (21:19)
[2016-07-10] MEDS: SODIUM CHLORIDE 0.9% FLUSH 5 ML FLUSH IVF PRN (23:48)
[2016-07-11] VITALS: BP 120/71; PULSE 78; RESP 20; TEMP 97.1; O2SAT 98
[2016-07-11 04:00] VITALS: BP 142/85; PULSE 61; RESP 18; TEMP 98.4; O2SAT 95
[2016-07-11] MEDS: chlordiazePOXIDE 25 MG CAP PO SCH ×5 (04:39→21:02)
[2016-07-11] MEDS: DEXAMETHASONE SOD PHOS 4 MG/ML VIAL IV PUSH SCH ×3 (04:40→17:06)
[2016-07-11] MEDS: oxyCODONE/ACETAMINOPHEN 5 MG/325 MG TAB PO PRN ×4 (04:40→21:03)
[2016-07-11] MEDS: SODIUM CHLORIDE 0.9% FLUSH 5 ML FLUSH IVF PRN (04:40)
[2016-07-11] MEDS: PHENYTOIN SODIUM 100 MG CAP PO SCH ×2 (08:17→21:03)
[2016-07-11] MEDS: VALPROIC ACID 250 MG CAP PO SCH ×2 (08:18→21:03)
[2016-07-11 08:54] VITALS: BP 152/82; PULSE 62; RESP 18; TEMP 97.6; O2SAT 96
--- NOTE | 2016-07-11 10:32 | HHI.PR ---
Subjective Remarks much much less tremulous tolerating po well no headaches, nausea or vomiting Objective Vitals Vital Signs Date Time Temp Pulse Resp B/P Pulse Ox O2 Delivery O2 Flow Rate FiO2 07/11/16 08:54 97.6 62 18 152/82 96 07/11/16 04:00 98.4 61 18 142/85 95 07/11/16 00:00 97.1 78 20 120/71 98 07/10/16 20:00 97.3 73 18 126/80 98 07/10/16 16:00 98.9 69 16 120/78 97 07/10/16 12:00 99.7 72 16 134/90 99 I/O 07/10/16 07/10/16 07/10/16 07/11/16 07/11/16 07/11/16 07:00 15:00 23:00 07:00 15:00 23:00 Intake Total 720 ml Balance 720 ml Intake Oral 720 ml # Voids 3 3 1 4 # Bowel Movements 0 Result Diagram: 07/09/16 0719 07/10/16 1811 Imaging Last Impressions Head CT 07/09/16 0000 Signed Impressions: Service Date/Time: Saturday, July 09, 2016 08:09 - CONCLUSION: 1. Area of low-density right frontal lobe seen. Contrasted MRI recommended for further characterization. Brandyn Eli MD Brain MRI 07/09/16 0000 Signed Impressions: Service Date/Time: Saturday, July 09, 2016 11:40 - CONCLUSION: Focal area of hemorrhage in the right frontal lobe with significant surrounding vasogenic edema and low grade enhancement after contrast. It is difficult to rule out an underlying mass with some adjacent hemorrhage. With essentially negative CT of the brain on 06/21/16 this is concerning for an underlying malignancy; i.e., there was no hemorrhage at the time of that study. David Henry MD Objective Remarks awake and alert, oriented x 3, speech soft but clear, ff all commands tremors- markedly decreased anicteric, pupils equal no facial asymmetry, + gag,. tongue midline no nuchal rigidity lungs clear regular rhythm abdomen soft, nontender extremities no edema A/P Assessment and Plan Patient is a 55-year-old female with history of chronic alcoholism presenting with generalized tonic-clonic seizures on imaging study shows some frontal lobe mass hemorrhage versus tumor with some budget vasogenic edema History of CVA with residual left-sided weakness from 1999 New onset seizure - witnessed.- History of previous CVA with residual mild left hemiparesis Will continue benzodiazepine Librium 50 mg every 4 Negative EEG , but with frontal lobe mass and edema Neurology ff- started on Depakote 750 mg bid. Dilantin dose decrease to 100 mg bid PT consult Frontal lobe mass versus meningioma versus hematoma with some vasogenic edema- per patient status post fall a week ago on Decadron 4 mg every 6. - decrease to 2 mg po q 6 Neurosurgery ff History of chronic alcoholism with periods of sobriety was in was to watch [facility] for detox, Librium 50 mg increase to q 4. prn IV Ativan Hypertension monitor for now PPI for GI prophylaxis Teds for DVT prophylaxis PT/OT consult/Cognitive consult Nutrition- ensure Aleksander Ingram MD Jul 11, 2016 10:32
[2016-07-11 12:30] VITALS: BP 107/61; PULSE 75; RESP 18; TEMP 98.2; O2SAT 97
[2016-07-11 16:00] VITALS: BP 113/70; PULSE 70; RESP 18; TEMP 98.1; O2SAT 95
[2016-07-11] MEDS: PANTOPRAZOLE SODIUM 40 MG VIAL IV PUSH SCH (17:06)
--- NOTE | 2016-07-11 19:41 | RADRPT ---
EXAM DATE/TIME: 07/11/2016 19:33 [facility] COMPARISON: MRI BRAIN W & W/O CONTRAST, July 09, 2016, 11:40. CT BRAIN W/O CONTRAST, July 09, 2016, 8:0 9. INDICATIONS : Follow up to intracerebral hemorrhage. RADIATION DOSE: 39.01 CTDIvol (mGy) MEDICAL HISTORY : Cerebrovascular disease. Stroke Hypertension. SURGICAL HISTORY : None. ENCOUNTER: Subsequent ACUITY: 2 days PAIN SCALE: 5/10 LOCATION: cranial TECHNIQUE: Multiple contiguous axial images were obtained of the head. Using automated exposure control and adj ustment of the mA and/or kV according to patient size, radiation dose was kept as low as reasonably a chievable to obtain optimal diagnostic quality images. FINDINGS: There is no change in area of diminished attenuation in the right frontal lobe corresponding to lesion seen on the patient's prior MRI without hemorrhage or mass effect. CONCLUSION: Stable nonspecific area of right frontal diminished attenuation. Uma Gandhi MD on July 11, 2016 at 19:38 Board Certified Radiologist. This report was verified electronically.
[2016-07-11 20:00] VITALS: BP 118/73; PULSE 68; RESP 24; TEMP 98.8; O2SAT 96
[2016-07-11] MEDS: POTASSIUM CHLORIDE INJ 10 MEQ in DEXT 5%-NACL 0.9% 1000 ML INJ 1,000 ML IV SCH (20:28)
--- NOTE | 2016-07-11 22:05 | HHI.NSPN ---
History Chief Complaint: headache Interval History 35-year-old female, history of alcohol abuse. History of recent fall, striking her head on a bathroom sink. Admitted through the emergency room. Initial CT scan revealing probable subacute right frontal hemorrhagic contusion. MRI with mild enhancement-cannot rule out underlying lesion Exam Results Vital Signs Date Time Temp Pulse Resp B/P Pulse Ox O2 Delivery O2 Flow Rate FiO2 07/11/16 20:00 98.8 68 24 118/73 96 07/09/16 15:05 Room Air Intake and Output 07/10/16 07/10/16 07/11/16 08:00 16:00 00:00 Intake Total 720 ml Balance 720 ml Physical Examination Awake and alert Oriented X 3 Speech is clear Conversant and appropriate Follow simple commands well Answers questions appropriately Reasonable judgment and insight Recent and remote memory are intact No evidence of anxiety or depression Pupils are equal and reactive to accommodation. Extra-ocular movements, visual koehler to confrontation, facial sensorimotor, tongue, palate, sternocleidomastoid testing, hearing to finger rub testing, and bilateral shoulder shrug are all intact. Sensation is intact to light touch in all extremities Strength normal major flexion and extension groups all extremities Agustin's absent bilaterally No ankle clonus Plantar responses absent bilateral Fine motor movements intact upper extremities Lab, Micro, Other Results 07/11/2016 CT scan head images reviewed. Agree with findings as noted below. No significant change in right frontal edema. Minimal mass effect. Head CT 07/11/16 0000 Signed Impressions: Service Date/Time: July 19:33 - CONCLUSION: Stable nonspecific area of right frontal diminished attenuation. Uma Gandhi MD Brain MRI 07/09/16 0000 Signed Impressions: Service Date/Time: Saturday, July 09, 2016 11:40 - CONCLUSION: Focal area of hemorrhage in the right frontal lobe with significant surrounding vasogenic edema and low grade enhancement after contrast. It is difficult to rule out an underlying mass with some adjacent hemorrhage. With essentially negative CT of the brain on 06/21/16 this is concerning for an underlying malignancy; i.e., there was no hemorrhage at the time of that study. David Henry MD Medical Decision Making Impression and Plan Impression: 1. Probable right frontal resolving subacute hemorrhagic contusion. Stable on follow-up CT scan 07/11/2016 Due to very mild contrast enhancement on MRI, there remains a concern for an underlying lesion. 2. History of alcohol abuse 3. Chronic seizure disorder, likely related to alcohol withdrawal 4. History of coagulopathy 5. Chronic pain syndrome-fibromyalgia 6. History of bipolar disorder Recommendations: Findings discussed with the patient She is stable for discharge from neurosurgery standpoint Plan follow-up MRI brain with contrast in approximately 3-4 weeks. Signs and symptoms to watch for discussed with patient. Omkar Lai MD Jul 11, 2016 22:04
[2016-07-12] VITALS: BP 111/70; PULSE 54; RESP 20; TEMP 96.4; O2SAT 96
[2016-07-12] MEDS: chlordiazePOXIDE 25 MG CAP PO SCH ×6 (01:40→21:28)
[2016-07-12] MEDS: DEXAMETHASONE SOD PHOS 4 MG/ML VIAL IV PUSH SCH ×2 (01:41→05:53)
[2016-07-12] MEDS: oxyCODONE/ACETAMINOPHEN 5 MG/325 MG TAB PO PRN ×4 (01:41→21:28)
[2016-07-12 04:00] VITALS: BP 125/82; PULSE 67; RESP 18; TEMP 96.8; O2SAT 95
[2016-07-12 08:00] VITALS: BP 147/90; PULSE 59; RESP 18; TEMP 98.1; O2SAT 98
[2016-07-12] MEDS: VALPROIC ACID 250 MG CAP PO SCH ×2 (08:45→21:29)
[2016-07-12] MEDS: PHENYTOIN SODIUM 100 MG CAP PO SCH ×2 (08:46→21:28)
[2016-07-12] MEDS: POTASSIUM CHLORIDE INJ 10 MEQ in DEXT 5%-NACL 0.9% 1000 ML INJ 1,000 ML IV SCH (08:47)
[2016-07-12 12:00] VITALS: BP 138/84; PULSE 64; RESP 20; TEMP 98.1; O2SAT 97
--- NOTE | 2016-07-12 12:16 | HHI.PR ---
Subjective Remarks "slight headache", no nausea or vomiting po 100% Objective Vitals Vital Signs Date Time Temp Pulse Resp B/P Pulse Ox O2 Delivery O2 Flow Rate FiO2 07/12/16 08:00 98.1 59 18 147/90 98 07/12/16 04:00 96.8 67 18 125/82 95 07/12/16 00:00 96.4 54 20 111/70 96 07/11/16 20:00 98.8 68 24 118/73 96 07/11/16 16:00 98.1 70 18 113/70 95 07/11/16 12:30 98.2 75 18 107/61 97 I/O 07/11/16 07/11/16 07/11/16 07/12/16 07/12/16 07/12/16 07:00 15:00 23:00 07:00 15:00 23:00 Intake Total 1391 ml Output Total 700 ml Balance 1391 ml -700 ml Intake Oral 480 ml IV Total 911 ml Output Urine Total 700 ml # Voids 4 3 2 Result Diagram: 07/09/16 0719 07/10/16 1811 Imaging Last Impressions Head CT 07/11/16 0000 Signed Impressions: Service Date/Time: July 19:33 - CONCLUSION: Stable nonspecific area of right frontal diminished attenuation. Uma Gandhi MD Brain MRI 07/09/16 0000 Signed Impressions: Service Date/Time: Saturday, July 09, 2016 11:40 - CONCLUSION: Focal area of hemorrhage in the right frontal lobe with significant surrounding vasogenic edema and low grade enhancement after contrast. It is difficult to rule out an underlying mass with some adjacent hemorrhage. With essentially negative CT of the brain on 06/21/16 this is concerning for an underlying malignancy; i.e., there was no hemorrhage at the time of that study. David Henry MD Objective Remarks awake and alert, oriented x 3, speech soft but clear, ff all commands tremors- mild anicteric, pupils equal no facial asymmetry, + gag,. tongue midline no nuchal rigidity lungs clear regular rhythm abdomen soft, nontender extremities no edema very mild LUE weakness, decreased hand equestrian trainer A/P Assessment and Plan Patient is a 55-year-old female with history of chronic alcoholism presenting with generalized tonic-clonic seizures on imaging study shows some frontal lobe mass hemorrhage versus tumor with some budget vasogenic edema History of CVA with residual left-sided weakness from 1999 New onset seizure - witnessed.- no further episodes History of previous CVA with residual mild left hemiparesis Will continue benzodiazepine Librium 50 mg every 4 Negative EEG , but with frontal lobe mass and edema Neurology ff- started on Depakote 750 mg bid. Dilantin dose decrease to 100 mg bid PT consult Frontal lobe mass versus meningioma versus hematoma with some vasogenic edema- per patient status post fall a week ago on Decadron - change to 4 mg po q 8 Neurosurgery ff- cleared for DC repeat MRI in 3 weeks. OP ff up History of chronic alcoholism with periods of sobriety was in was to watch [facility] for detox, Librium 50 mg q 4. prn IV Ativan Hypertension monitor for now PPI for GI prophylaxis Teds for DVT prophylaxis PT/OT consult/Cognitive consult Nutrition- ensure Increase activity Aleksander Ingram MD Jul 12, 2016 12:16
[2016-07-12] MEDS ORDERED: DEXAMETHASONE 4 MG TAB PO SCH ×2 (14:00)
[2016-07-12 16:00] VITALS: BP 132/82; PULSE 64; RESP 18; TEMP 97.1; O2SAT 98
[2016-07-12] MEDS: PANTOPRAZOLE SODIUM 40 MG VIAL IV PUSH SCH (16:55)
[2016-07-12 20:00] VITALS: BP 123/74; PULSE 77; RESP 18; TEMP 96.6; O2SAT 94
--- NOTE | 2016-07-12 22:53 | HHI.NSPN ---
History Chief Complaint: headache Interval History 35-year-old female, history of alcohol abuse. History of recent fall, striking her head on a bathroom sink. Admitted through the emergency room. Initial CT scan revealing probable subacute right frontal hemorrhagic contusion. MRI with mild enhancement-cannot rule out underlying lesion Exam Results Vital Signs Date Time Temp Pulse Resp B/P Pulse Ox O2 Delivery O2 Flow Rate FiO2 07/12/16 20:00 96.6 77 18 123/74 94 07/09/16 15:05 Room Air Intake and Output 07/11/16 07/11/16 07/12/16 08:00 16:00 00:00 Intake Total 1391 ml Balance 1391 ml Physical Examination Awake and alert Oriented X 3 Speech is clear Conversant and appropriate Follow simple commands well Answers questions appropriately Reasonable judgment and insight Recent and remote memory are intact No evidence of anxiety or depression Extraocular movements intact, facial motor movement symmetric Sensation is intact to light touch in all extremities Strength normal major flexion and extension groups right upper and lower extremities , mostly 4/5 left upper extremity and proximal left lower extremity- chronic secondary to previous CVA according to patient. Plantar responses absent bilateral Lab, Micro, Other Results Laboratory Tests Test 07/12/16 07:50 Valproic Acid (Depakene) Level 53 MCG/ML Medical Decision Making Impression and Plan Impression: 1. Probable right frontal resolving subacute hemorrhagic contusion. Stable on follow-up CT scan 07/11/2016 Due to very mild contrast enhancement on MRI, there remains a concern for an underlying lesion. 2. History of alcohol abuse 3. Chronic seizure disorder, likely related to alcohol withdrawal 4. History of coagulopathy 5. Chronic pain syndrome-fibromyalgia 6. History of bipolar disorder 7. History of previous CVA with left hemiparesis Recommendations: Medications reviewed. Patient's headache not well controlled at present Findings discussed with the patient She is stable for discharge from neurosurgery standpoint Plan follow-up MRI brain with contrast in approximately 3-4 weeks. Signs and symptoms to watch for discussed with patient. Omkar Lai MD Jul 12, 2016 22:53
[2016-07-12] MEDS ORDERED: HYDROmorphone HCL 2 MG TAB PO PRN (23:00)
[2016-07-12] MEDS ORDERED: oxyCODONE/ACETAMINOPHEN 10 MG/325 MG TAB PO PRN (23:00)
[2016-07-13 02:00] VITALS: BP 120/72; PULSE 90; RESP 18; TEMP 97.8; O2SAT 96
[2016-07-13] MEDS: oxyCODONE/ACETAMINOPHEN 5 MG/325 MG TAB PO PRN ×2 (03:42→11:24)
[2016-07-13] MEDS: chlordiazePOXIDE 25 MG CAP PO SCH ×5 (03:43→16:15)
[2016-07-13 04:00] VITALS: BP 121/70; PULSE 88; RESP 16; TEMP 98.8; O2SAT 88
[2016-07-13 08:00] VITALS: BP 142/83; PULSE 60; RESP 20; TEMP 96.3; O2SAT 98
[2016-07-13] MEDS: PHENYTOIN SODIUM 100 MG CAP PO SCH (08:15)
[2016-07-13] MEDS: VALPROIC ACID 250 MG CAP PO SCH (08:16)
[2016-07-13] MEDS: DEXAMETHASONE 1.5 MG TAB PO SCH ×3 (08:16→16:15)
[2016-07-13 12:00] VITALS: BP 106/63; PULSE 76; RESP 16; TEMP 98.2; O2SAT 98
--- NOTE | 2016-07-13 14:22 | HHI.PR ---
Subjective Remarks feels great, less tremulous good po no headaches Objective Vitals Vital Signs Date Time Temp Pulse Resp B/P Pulse Ox O2 Delivery O2 Flow Rate FiO2 07/13/16 12:00 98.2 76 16 106/63 98 07/13/16 08:00 96.3 60 20 142/83 98 07/13/16 04:00 98.8 88 16 121/70 88 07/13/16 02:00 97.8 90 18 120/72 96 07/12/16 20:00 96.6 77 18 123/74 94 07/12/16 16:00 97.1 64 18 132/82 98 I/O 07/12/16 07/12/16 07/12/16 07/13/16 07/13/16 07/13/16 07:00 15:00 23:00 07:00 15:00 23:00 Intake Total 480 ml Output Total 700 ml Balance -700 ml 480 ml Intake Oral 480 ml Output Urine Total 700 ml # Voids 3 Result Diagram: 07/09/16 0719 07/10/16 1811 Imaging Last Impressions Head CT 07/11/16 0000 Signed Impressions: Service Date/Time: July 19:33 - CONCLUSION: Stable nonspecific area of right frontal diminished attenuation. KGary Gandhi MD Brain MRI 07/09/16 0000 Signed Impressions: Service Date/Time: Saturday, July 09, 2016 11:40 - CONCLUSION: Focal area of hemorrhage in the right frontal lobe with significant surrounding vasogenic edema and low grade enhancement after contrast. It is difficult to rule out an underlying mass with some adjacent hemorrhage. With essentially negative CT of the brain on 06/21/16 this is concerning for an underlying malignancy; i.e., there was no hemorrhage at the time of that study. David Henry MD Objective Remarks awake and alert, oriented x 3, speech soft but clear, ff all commands tremors- mild anicteric, pupils equal no facial asymmetry, + gag,. tongue midline no nuchal rigidity lungs clear regular rhythm abdomen soft, nontender extremities no edema strength good, steady gait A/P Assessment and Plan Patient is a 55-year-old female with history of chronic alcoholism presenting with generalized tonic-clonic seizures on imaging study shows some frontal lobe mass hemorrhage versus tumor with some budget vasogenic edema History of CVA with residual left-sided weakness from 1999 New onset seizure - witnessed.- no further episodes History of previous CVA with residual mild left hemiparesis Will continue benzodiazepine Librium 50 mg every 4 Negative EEG , but with frontal lobe mass and edema Neurology ff- started on Depakote 750 mg bid. Dilantin dose decrease to 100 mg bid PT consult Frontal lobe mass versus meningioma versus hematoma with some vasogenic edema- per patient status post fall a week ago on Decadron - 1.5 mg po tid Neurosurgery ff- cleared for DC repeat MRI in 3 weeks. OP ff up cleared for DC by Dr. Lai. OP ff up with him History of chronic alcoholism with periods of sobriety was in was to watch [facility] for detox, - patient very MOTIVATED Librium 50 mg q 4. Hypertension history. good readings off meds PPI for GI prophylaxis Teds for DVT prophylaxis DC today to Treatment center in [place]. ask CM to assist. Nutrition- ensure Increase activity Aleksander Ingram MD Jul 13, 2016 14:22
--- NOTE | 2016-07-13 14:32 | HHI.DS ---
Discharge Summary Admission Date Jul 09, 2016 at 10:24 Discharge Date: Jul 13, 2016 Admitting Diagnosis seizure, abnormal ct (1) Seizure ICD Code: R56.9 Diagnosis: Principal (2) Right frontal lobe punctate hemorrhage ICD Code: I61.1 Diagnosis: Principal Procedures none Brief History - From Admission Patient is a 55-year-old female right handed with history of chronic alcoholism with periods of sobriety in between. About 2 months ago patient started drinking again and was entirely went to [facility] Friday rrehabilitation. . This a.m. patient went into generalized tonic-clonic seizure witnessed by staff as she was getting out of the bathroom. And was promptly sent over here for further evaluation and management. At [facility] treatment center she was on a regimen of Ativan IV when necessary, clonidine, amlodipine, Vistaril. . Patient with history of bipolar disorder seeing a therapist. At one point in the past she was on Depakote and Klonopin. He denies any history of suicidal tendencies. She has history of hypertension and in [facility] she was placed on amlodipine 5 mg daily. On further questioning she has been having right front-parietal headache l headache associated with some nausea- pretty steady.. She states that last week she fell and hit her head in the bathroom sink. 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 She states that she got herself back to her present state of near baseline. She is baseline up and ambulatory with no assistive devices. States she's been having some diarrhea for the past week brown stools no melena or hematochezia. Patient admitted for further evaluation and management. Patient now recalls that about a week ago she fell and hit her head on the bathroom sink CBC/BMP: 07/09/16 0719 07/10/16 1811 Significant Findings Laboratory Tests Test 07/10/16 18:11 Estimat Glomerular Filtration 74 ML/MIN (>89) Rate Random Glucose 162 MG/DL (74-106) Calcium Level 8.3 MG/DL (8.5-10.1) Imaging Last Impressions Head CT 07/11/16 0000 Signed Impressions: Service Date/Time: July 19:33 - CONCLUSION: Stable nonspecific area of right frontal diminished attenuation. Uma Gandhi MD Brain MRI 07/09/16 0000 Signed Impressions: Service Date/Time: Saturday, July 09, 2016 11:40 - CONCLUSION: Focal area of hemorrhage in the right frontal lobe with significant surrounding vasogenic edema and low grade enhancement after contrast. It is difficult to rule out an underlying mass with some adjacent hemorrhage. With essentially negative CT of the brain on 06/21/16 this is concerning for an underlying malignancy; i.e., there was no hemorrhage at the time of that study. David Henry MD PE at Discharge awake and alert, oriented x 3, speech soft but clear, ff all commands tremors-minimal anicteric, pupils equal no facial asymmetry, + gag,. tongue midline no nuchal rigidity lungs clear regular rhythm abdomen soft, nontender extremities no edema strength good, steady gait Pt update on day of discharge awake and alert, very motivated in going into rehab no complains of headaches, nausea or vomiting gait steady and stable Hospital Course Patient is a 55-year-old female with history of chronic alcoholism presenting with generalized tonic-clonic seizures on imaging study shows some frontal lobe mass hemorrhage versus tumor with some budget vasogenic edema History of CVA with residual left-sided weakness from 1999 New onset seizure - witnessed.- no further episodes History of previous CVA with residual mild left hemiparesis Will continue benzodiazepine Librium 50 mg every 4 Negative EEG , but with frontal lobe mass and edema Neurology ff- started on Depakote 750 mg bid. Dilantin dose decrease to 100 mg bid PT consult Frontal lobe mass versus meningioma versus hematoma with some vasogenic edema- per patient status post fall a week ago on Decadron - 1.5 mg po tid Neurosurgery ff- cleared for DC repeat MRI in 3 weeks. OP ff up cleared for DC by Dr. Lai. OP ff up with him History of chronic alcoholism with periods of sobriety was in was to watch [facility] for detox, - patient very MOTIVATED Librium 50 mg q 4. Hypertension history. good readings off meds PPI for GI prophylaxis Teds for DVT prophylaxis DC today to Treatment center in [place]. ask CM to assist. Nutrition- ensure Increase activity Pt Condition on Discharge: Good Discharge Disposition: Disc to Psych Care Fac Discharge Time: <= 30 minutes Discharge Instructions DIET: Follow Instructions for: As Tolerated, No Restrictions Speech Therapy-Diet Recommends: Regular Activities you can perform: Regular-No Restrictions Activities to Avoid: Driving for 24 hrs, Concussion Sports Other Activity Instructions: no driving for six months ensure adequate sleep Aleksander Ingram MD Jul 13, 2016 14:32
[2016-07-13] MEDS ORDERED: DEXA1.5T PO (14:39)
[2016-07-13] MEDS ORDERED: VALP250 PO (14:39)
[2016-07-13] MEDS ORDERED: CHLO25CA2 PO (14:39)
[2016-07-13] MEDS ORDERED: DILA100C PO (14:39)
[2016-07-13] MEDS: PANTOPRAZOLE SODIUM 40 MG VIAL IV PUSH SCH (16:06)
[2016-07-14] MEDS ORDERED: PHENYTOIN SODIUM 100 MG CAP PO SCH (09:00)
== END 2016-07-13 17:10 | disposition home or self-care (01) | DRG 100 ==
LOC: NEPE 06:38 → NEDA 10:24 → NEDH 14:34 → N05B 17:32
PROVIDERS: ADMIT Family Medicine; ATTEND Family Medicine
DX: G40.89 Other seizures (principal); S06.359A Traumatic hemorrhage of left cerebrum with loss of consciousness of unspecified duration, initial encounter; G93.6 Cerebral edema; I69.354 Hemiplegia and hemiparesis following cerebral infarction affecting left non-dominant side; D68.9 Coagulation defect, unspecified; F10.20 Alcohol dependence, uncomplicated; F31.9 Bipolar disorder, unspecified; F41.9 Anxiety disorder, unspecified; F17.210 Nicotine dependence, cigarettes, uncomplicated; I10 Essential (primary) hypertension; R19.7 Diarrhea, unspecified; M79.7 Fibromyalgia; G89.4 Chronic pain syndrome; Z91.81 History of falling; R25.1 Tremor, unspecified; W17.89XA Other fall from one level to another, initial encounter; Y93.01 Activity, walking, marching and hiking; Y92.091 Bathroom in other non-institutional residence as the place of occurrence of the external cause
CPT/HCPCS: 70450; 70553; 80048; 80053; 80164; 80184; 80185; 80307; 80320; 81001; 82550; 85025; 87086; 93005; 95819; 96361; 96374; A9579; C9113; J1100; J2060; J3480; J7030; J7042; J8540; Q2009

== ENCOUNTER 2016-12-05 16:11 | Emergency (ER) | payer OTHER ==
[~2016-12-05] VITALS: Ht 177.8 cm; Wt 60.0 kg
[~2016-12-05 16:11] MED LIST changes: +CHLO25CA2 PO; +DEXA1.5T PO; +DILA100C PO; +VALP250 PO; -VITA100T2 PO; -XARE15TA PO
[2016-12-05 16:12] VITALS: BP 131/87; PULSE 90; RESP 20; TEMP 99; O2SAT 100
--- NOTE | 2016-12-05 16:18 | PD ---
Physical Exam Time Seen by Provider: 16:17 Narrative 56 y/o female here with fatigue and lightheadedness. Vital signs reviewed. Seen at triage desk. Awaiting bed placement. Data Data Last Documented VS Vital Signs Date Time Temp Pulse Resp B/P Pulse Ox O2 Delivery O2 Flow Rate FiO2 12/05/16 16:12 99.0 90 20 131/87 100 Room Air [facility] Medical Record Reviewed: Yes Supervised Visit with CHRISTIAN: Mikey Wadsworth Dec 05, 2016 16:18
[2016-12-05] MEDS ORDERED: SODIUM CHLOR 0.9% 1000 ML INJ 1,000 ML IV ONE (19:05)
[2016-12-05] MEDS ORDERED: SODIUM CHLORIDE 0.9% FLUSH 10 ML FLUSH IVF PRN (19:15)
[2016-12-05] MEDS ORDERED: ONDANSETRON HCL 4 MG/2 ML VIAL IVP ONE (19:15)
[2016-12-05 19:54] LABS: AUTOMATED NEUTROPHIL # 4.7 TH/MM3 (1.8-7.7); BASOPHIL # 0.1 TH/MM3 (0-0.2); BASOPHIL % 1.1 % (0.0-2.0); EOSINOPHIL # 0.1 TH/MM3 (0-0.4); EOSINOPHIL % 1.1 % (0.0-4.0); LYMPH % 28.2 % (9.0-44.0); LYMPHOCYTE # 2.1 TH/MM3 (1.0-4.8); MEAN CELL VOLUME 81.8 FL (80.0-100.0); MEAN CORPUSCULAR HEMOGLOBIN 27.6 PG (27.0-34.0); MEAN CORPUSCULAR HGB CONC 33.7 % (32.0-36.0); MONO % 8.5 % (0.0-8.0); NEUT % 61.1 % (16.0-70.0); PLATELET COUNT 230 TH/MM3 (150-450); RED BLOOD COUNT 5.01 MIL/MM3 (4.00-5.30); RED CELL DISTRIBUTION WIDTH 27.7 % (11.6-17.2); WHITE BLOOD COUNT 7.6 TH/MM3 (4.0-11.0)
--- NOTE | 2016-12-05 19:58 | PD ---
HPI Chief Complaint: General Weakness Time Seen by Provider: 18:57 Travel History International Travel<30 days: No Contact w/Intl Traveler<30days: No Traveled to known affect area: No History of Present Illness HPI 56 -year-old female arrives by private vehicle due to near syncope. 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 While working she became very lightheaded and nearly lost consciousness however did not. Afterward she had to take a break. She reports shortness of breath lately. It's worse with exertion. She has no chest pain. She reports she has a history of anemia and it feels as though she is anemic right now. He denies any blood in her stool or urine. She has been taking iron however it has not helped. She describes a sense of generalized weakness and fatigue lasting a few weeks now and believes it is likely due to anemia. She denies drug alcohol abuse. She is trying to quit smoking and is down to half a pack a day. PFSH Past Medical History Hx Anticoagulant Therapy: Yes (XARELTO ) Arthritis: No Autoimmune Disease: No Blood Disorders: No Bipolar Disorder: Yes Anxiety: Yes Depression: Yes Heart Rhythm Problems: No Cancer: No Cardiovascular Problems: Yes (MURMUR) High Cholesterol: No Chest Pain: No Congestive Heart Failure: No Cerebrovascular Accident: Yes (CVA 1999) Diabetes: No Diminished Hearing: No Endocrine: No Gastrointestinal Disorders: Yes (abdominal pain, pancreatitis) Genitourinary: Yes (essence this admission ) Headaches: Yes Hiatal Hernia: Yes Hypertension: Yes Immune Disorder: No Kidney Stones: No Musculoskeletal: Yes (left sided weakness r/t cva) Neurologic: Yes (fibromyalia, old CVA) Psychiatric: Yes (bipolar) Reproductive: No Respiratory: No Immunizations Current: Yes Migraines: Yes Pancreatitis: Yes Renal Failure: No Seizures: Yes Thyroid Disease: No Ulcer: Yes Past Surgical History Abdominal Surgery: No Body Medical Devices: perri filter Cardiac Surgery: No Ear Surgery: No Endocrine Surgery: No Eye Surgery: No Genitourinary Surgery: No Gynecologic Surgery: Yes (breast biopsy) Oral Surgery: No Pacemaker: No Thoracic Surgery: No Other Surgery: No Social History Alcohol Use: Yes (etoh abuse per hx ) Tobacco Use: Yes (1/2ppd) Substance Use: Yes (hx of OPIATES) Allergies-Medications (Allergen,Severity, Reaction): Coded Allergies: No Known Allergies (Unverified , 07/09/16) Reported Meds & Prescriptions Reported Meds & Active Scripts Active Depakene (Valproic Acid) 250 Mg Cap 750 Mg PO Q12HR 30 Days Dexamethasone 1.5 Mg Tab 1.5 Mg PO TID 21 Days Dilantin (Phenytoin Extended) 100 Mg Cap 100 Mg PO Q12HR 30 Days Chlordiazepoxide (Chlordiazepoxide HCl) 25 Mg Cap 50 Mg PO Q4HR Multivitamin Adults (Multiple Vitamins W/ Minerals) 1 Tab 1 Tab PO DAILY 30 Days Review of Systems Except as stated in HPI: all other systems reviewed are Neg Physical Exam Narrative GENERAL: 56-year-old female pleasant well-nourished well-developed no acute distress brisk and normal gait SKIN: Warm and dry. HEAD: Atraumatic. Normocephalic. EYES: Pupils equal and round. No scleral icterus. No injection or drainage. ENT: No nasal bleeding or discharge. Mucous membranes pink and moist. NECK: Trachea midline. No JVD. CARDIOVASCULAR: Regular rate and rhythm. RESPIRATORY: No accessory muscle use. Clear to auscultation. Breath sounds equal bilaterally. GASTROINTESTINAL: Abdomen soft, non-tender, nondistended. Hepatic and splenic margins not palpable. MUSCULOSKELETAL: Extremities without clubbing, cyanosis, or edema. No obvious deformities. NEUROLOGICAL: Awake and alert. No obvious cranial nerve deficits. Motor grossly within normal limits. Five out of 5 muscle strength in the arms and legs. Normal speech. PSYCHIATRIC: Appropriate mood and affect; insight and judgment normal. Data Data Last Documented VS Vital Signs Date Time Temp Pulse Resp B/P Pulse Ox O2 Delivery O2 Flow Rate FiO2 12/05/16 16:12 99.0 90 20 131/87 100 Room Air VS reviewed Orders Electrocardiogram (12/05/16 19:05) Basic Metabolic Panel (Bmp) (12/05/16 19:05) Complete Blood Count With Diff (12/05/16 19:05) Ecg Monitoring (12/05/16 19:05) Iv Access Insert/Monitor (12/05/16 19:05) Oximetry (12/05/16 19:05) Ondansetron Inj (Zofran Inj) (12/05/16 19:15) Sodium Chloride 0.9% Flush (Ns Flush) (12/05/16 19:15) Sodium Chlor 0.9% 1000 Ml Inj (Ns 1000 M (12/05/16 19:05) Type And Screen (12/05/16 19:05) Labs Laboratory Tests Test 12/05/16 19:25 White Blood Count 7.6 TH/MM3 Red Blood Count 5.01 MIL/MM3 Hemoglobin 13.8 GM/DL Hematocrit 41.0 % Mean Corpuscular Volume 81.8 FL Mean Corpuscular Hemoglobin 27.6 PG Mean Corpuscular Hemoglobin 33.7 % Concent Red Cell Distribution Width 27.7 % Platelet Count 230 TH/MM3 Mean Platelet Volume 8.3 FL Neutrophils (%) (Auto) 61.1 % Lymphocytes (%) (Auto) 28.2 % Monocytes (%) (Auto) 8.5 % Eosinophils (%) (Auto) 1.1 % Basophils (%) (Auto) 1.1 % Neutrophils # (Auto) 4.7 TH/MM3 Lymphocytes # (Auto) 2.1 TH/MM3 Monocytes # (Auto) 0.6 TH/MM3 Eosinophils # (Auto) 0.1 TH/MM3 Basophils # (Auto) 0.1 TH/MM3 CBC Comment AUTO DIFF Differential Comment AUTO DIFF CONFIRMED Ovalocytes 1+ Sodium Level 139 MEQ/L Potassium Level 3.8 MEQ/L Chloride Level 106 MEQ/L Carbon Dioxide Level 21.4 MEQ/L Anion Gap 12 MEQ/L Blood Urea Nitrogen 10 MG/DL Creatinine 0.60 MG/DL Estimat Glomerular Filtration 103 ML/MIN Rate Random Glucose 85 MG/DL Calcium Level 9.9 MG/DL Blood Type O NEGATIVE Antibody Screen NEGATIVE Blood Bank Comment [facility] Medical Decision Making Medical Screen Exam Complete: Yes Emergency Medical Condition: Yes Medical Record Reviewed: Yes Differential Diagnosis EKG: sinus, rate 54, normal axis/intervals CBC & BMP Diagram 12/05/16 19:25 The patient is resting comfortably and feels better, is alert and in no distress. The patients results and examination findings were discussed. The repeat examination is unremarkable and benign. The history, exam, diagnostic testing, and current condition do not suggest any significant pathology to warrant further testing, continued ED treatment, admission, or surgical evaluation at this point. The vital signs have been stable. The patient does not have uncontrollable pain, intractable vomiting, or other significant symptoms. The patient's condition is stable and appropriate for discharge. The patient will pursue further outpatient evaluation with a primary care physician or other designated or consulting physician as indicated in the discharge instructions. The patient expressed understanding and was agreeable with this plan. Narrative Course CBC & BMP Diagram 12/05/16 19:25 EKG: Sinus, rate approximately 55, normal axis intervals The patient is resting comfortably and feels better, is alert and in no distress. The patients results and examination findings were discussed. The repeat examination is unremarkable and benign. The history, exam, diagnostic testing, and current condition do not suggest any significant pathology to warrant further testing, continued ED treatment, admission, or surgical evaluation at this point. The vital signs have been stable. The patient does not have uncontrollable pain, intractable vomiting, or other significant symptoms. The patient's condition is stable and appropriate for discharge. The patient will pursue further outpatient evaluation with a primary care physician or other designated or consulting physician as indicated in the discharge instructions. The patient expressed understanding and was agreeable with this plan. Diagnosis Primary Impression: Weakness Additional Impression: Near syncope Referrals: Primary Care Physician call for appointment Additional Instructions: You have a choice when it comes to health care, and we are glad that you chose [facility]. Hopefully, we have met your expectations on today's visit. You are welcome to return to [facility] at any time, as we are committed to meeting the health care needs of our community. Med/Other Pt SpecificInfo: No Change to Meds Disposition: 01 DISCHARGE HOME Condition: Eric Ferro MD Dec 05, 2016 19:58
[2016-12-05 20:11] LABS: HEMO FLAGS AUTO DIFF
[2016-12-05 20:44] LABS: OVALOCYTES 1+ (NORMAL); SCAN/DIFF AUTO DIFF CONFIRMED
[2016-12-05 21:05] LABS: BICARBONATE 21.4 MEQ/L (21.0-32.0); POTASSIUM 3.8 MEQ/L (3.5-5.1)
--- NOTE | 2016-12-05 21:48 | EKG ---
Date Performed: 12/05/2016 Time Performed: 19:28:21 PTAGE: 56 years EKG: SINUS BRADYCARDIA BORDERLINE ECG Compared to prior electrocardiogram incomplete right bundl e branch block is no longer present. PREVIOUS TRACING : 07/09/2016 06.36 DOCTOR: Maciel Fisher Interpretating Date/Time 12/05/2016 21:47:10
== END 2016-12-05 21:35 | disposition home or self-care (01) ==
LOC: NEPD 16:11
DX: R53.1 Weakness (principal); R55 Syncope and collapse; R42 Dizziness and giddiness; R06.02 Shortness of breath; I10 Essential (primary) hypertension; M79.7 Fibromyalgia; I69.954 Hemiplegia and hemiparesis following unspecified cerebrovascular disease affecting left non-dominant side; F17.200 Nicotine dependence, unspecified, uncomplicated; Z79.899 Other long term (current) drug therapy
CPT/HCPCS: 80048; 85025; 86850; 86900; 86901; 93005; 96361; 96374; 99284; J2405; J7030

== ENCOUNTER 2017-01-31 14:23 | Emergency (ER) | payer OTHER ==
[~2017-01-31] VITALS: Ht 180.3 cm; Wt 75.0 kg
[2017-01-31 14:26] VITALS: BP 136/71; PULSE 66; RESP 24; TEMP 98.1; O2SAT 99
--- NOTE | 2017-01-31 14:39 | PD ---
Physical Exam Time Seen by Provider: 14:37 Narrative 48-year-old female, on Coumadin, sent by Dr. Phelps for INR greater than 8 yesterday. Patient states her INR was rechecked today in the office and it was over 5. Patient also complaining of abdominal pain, blood in her stool, and nosebleeds. Patient seen in triage. VS reviewed. Awaiting bed placement. Data Data Last Documented VS Vital Signs Date Time Temp Pulse Resp B/P (MAP) Pulse Ox O2 Delivery O2 Flow Rate FiO2 01/31/17 14:26 98.1 66 24 136/71 (92) 99 Room Air MDM Supervised Visit with CHRISTIAN: Ronna Garcia Jan 31, 2017 14:39
[2017-01-31 15:17] LABS: AUTOMATED NEUTROPHIL # 5.7 TH/MM3 (1.8-7.7); BASOPHIL # 0.1 TH/MM3 (0-0.2); BASOPHIL % 0.8 % (0.0-2.0); EOSINOPHIL # 0.2 TH/MM3 (0-0.4); EOSINOPHIL % 2.3 % (0.0-4.0); HEMATOCRIT 40.4 % (35.0-46.0); LYMPH % 22.4 % (9.0-44.0); LYMPHOCYTE # 1.9 TH/MM3 (1.0-4.8); MEAN CELL VOLUME 87.4 FL (80.0-100.0); MEAN CORPUSCULAR HEMOGLOBIN 28.9 PG (27.0-34.0); MONO % 6.6 % (0.0-8.0); NEUT % 67.9 % (16.0-70.0); PLATELET COUNT 266 TH/MM3 (150-450); RED BLOOD COUNT 4.62 MIL/MM3 (4.00-5.30); RED CELL DISTRIBUTION WIDTH 14.1 % (11.6-17.2); WHITE BLOOD COUNT 8.4 TH/MM3 (4.0-11.0)
[2017-01-31 15:20] VITALS: BP 122/73; PULSE 59; RESP 18; TEMP 98.6; O2SAT 99
[2017-01-31 15:23] LABS: HEMO FLAGS AUTO DIFF
[2017-01-31] MEDS ORDERED: PROP20TA3 PO (15:26)
[2017-01-31] MEDS ORDERED: WARF-23 PO (15:26)
[2017-01-31] MEDS ORDERED: AMLO5TAB2 PO (15:26)
[2017-01-31 15:31] LABS: INTERNATIONAL NORMALIZED RATIO 3.5 RATIO; PROTHROMBIN TIME - PATIENT 41.1 SEC (9.8-11.6)
--- NOTE | 2017-01-31 15:34 | PD ---
HPI Chief Complaint: Abnormal Results Time Seen by Provider: 15:32 Travel History International Travel<30 days: No Contact w/Intl Traveler<30days: No Traveled to known affect area: No History of Present Illness HPI 56-year-old female with history of PE and DVT, currently on Coumadin, which she has been started on by her primary care doctor for several weeks, here because her INR was 8.0 2 days ago, and she has been having some blood in her stools and blood in the urine. She denies any chest pains, shortness of breath, fevers , or any other symptoms. She states that she had her INR rechecked again at her physician's office and it was over 5. She was told to come to the ER for further evaluation. She had been given 1 dose of 5 mg vitamin K. Modifying Factors: None Associated Signs & Symptoms: Supratherapeutic INR, blood in the stool and urine Risk Factors: On Coumadin PFSH Past Medical History Hx Anticoagulant Therapy: Yes (COUMADIN) Arthritis: No Autoimmune Disease: No Blood Disorders: No Bipolar Disorder: Yes Anxiety: Yes Depression: Yes Heart Rhythm Problems: No Cancer: No Cardiovascular Problems: Yes (MURMUR) High Cholesterol: No Chest Pain: No Congestive Heart Failure: No Cerebrovascular Accident: Yes (CVA) Diabetes: No Diminished Hearing: No Endocrine: No Gastrointestinal Disorders: Yes (abdominal pain, pancreatitis) Genitourinary: Yes (essence this admission ) Headaches: Yes Hiatal Hernia: Yes Hypertension: Yes Immune Disorder: No Kidney Stones: No Musculoskeletal: Yes (left sided weakness r/t cva) Neurologic: Yes (fibromyalia, old CVA) Psychiatric: Yes (bipolar) Reproductive: No Respiratory: No Immunizations Current: Yes Migraines: Yes Pancreatitis: Yes Renal Failure: No Seizures: Yes Thyroid Disease: No Ulcer: Yes Past Surgical History Abdominal Surgery: No Body Medical Devices: perri filter Cardiac Surgery: No Ear Surgery: No Endocrine Surgery: No Eye Surgery: No Genitourinary Surgery: No Gynecologic Surgery: Yes (breast biopsy) Oral Surgery: No Pacemaker: No Thoracic Surgery: No Other Surgery: No Social History Alcohol Use: Yes (etoh abuse per hx ) Tobacco Use: Yes (3 cigarettes/day) Substance Use: Yes (hx of OPIATES) Allergies-Medications (Allergen,Severity, Reaction): Coded Allergies: No Known Allergies (Unverified , 01/31/17) Reported Meds & Prescriptions Reported Meds & Active Scripts Active Reported Warfarin 5 Mg Tab 5 Mg PO DAILY Propranolol (Propranolol HCl) 20 Mg Tab 20 Mg PO Q8HR Amlodipine (Amlodipine Besylate) 5 Mg Tab 5 Mg PO DAILY Review of Systems Except as stated in HPI: all other systems reviewed are Neg Physical Exam Narrative GENERAL: Well-developed middle age white female patient currently in mild distress at awake and oriented 3. SKIN: Focused skin assessment warm/dry. HEAD: Atraumatic. Normocephalic. EYES: Pupils equal and round. No scleral icterus. No injection or drainage. ENT: No nasal bleeding or discharge. Mucous membranes pink and moist. NECK: Trachea midline. No JVD. CARDIOVASCULAR: Regular rate and rhythm. No murmur appreciated. RESPIRATORY: No accessory muscle use. Clear to auscultation. Breath sounds equal bilaterally. GASTROINTESTINAL: Abdomen soft, non-tender, nondistended. Hepatic and splenic margins not palpable. MUSCULOSKELETAL: No obvious deformities. No clubbing. No cyanosis. No edema. NEUROLOGICAL: Awake and alert. No obvious cranial nerve deficits. Motor grossly within normal limits. Normal speech. PSYCHIATRIC: Appropriate mood and affect; insight and judgment normal. Data Data Last Documented VS Vital Signs Date Time Temp Pulse Resp B/P (MAP) Pulse Ox O2 Delivery O2 Flow Rate FiO2 01/31/17 15:20 98.6 59 18 122/73 (89) 99 Room Air Orders Orders Complete Blood Count With Diff (01/31/17 14:41) Comprehensive Metabolic Panel (01/31/17 14:41) Prothrombin Time / Inr (Pt) (01/31/17 14:41) Act Partial Throm Time (Ptt) (01/31/17 14:41) Type And Screen (01/31/17 14:41) Urinalysis - C+S If Indicated (01/31/17 15:35) Labs Laboratory Tests Test 01/31/17 14:52 01/31/17 16:00 White Blood Count 8.4 TH/MM3 Red Blood Count 4.62 MIL/MM3 Hemoglobin 13.4 GM/DL Hematocrit 40.4 % Mean Corpuscular Volume 87.4 FL Mean Corpuscular Hemoglobin 28.9 PG Mean Corpuscular Hemoglobin Concent 33.0 % Red Cell Distribution Width 14.1 % Platelet Count 266 TH/MM3 Mean Platelet Volume 7.9 FL Neutrophils (%) (Auto) 67.9 % Lymphocytes (%) (Auto) 22.4 % Monocytes (%) (Auto) 6.6 % Eosinophils (%) (Auto) 2.3 % Basophils (%) (Auto) 0.8 % Neutrophils # (Auto) 5.7 TH/MM3 Lymphocytes # (Auto) 1.9 TH/MM3 Monocytes # (Auto) 0.6 TH/MM3 Eosinophils # (Auto) 0.2 TH/MM3 Basophils # (Auto) 0.1 TH/MM3 CBC Comment AUTO DIFF Differential Comment AUTO DIFF CONFIRMED Ovalocytes 1+ Acanthocytes OCC Prothrombin Time 41.1 SEC Prothromb Time International Ratio 3.5 RATIO Activated Partial Thromboplast Time 69.0 SEC Blood Urea Nitrogen 22 MG/DL Creatinine 0.82 MG/DL Random Glucose 98 MG/DL Total Protein 7.6 GM/DL Albumin 4.0 GM/DL Calcium Level 9.0 MG/DL Alkaline Phosphatase 105 U/L Aspartate Amino Transf (AST/SGOT) 16 U/L Alanine Aminotransferase (ALT/SGPT) 27 U/L Total Bilirubin 0.3 MG/DL Sodium Level 139 MEQ/L Potassium Level 4.0 MEQ/L Chloride Level 109 MEQ/L Carbon Dioxide Level 24.6 MEQ/L Anion Gap 5 MEQ/L Estimat Glomerular Filtration Rate 72 ML/MIN Urine Color BROWN Urine Turbidity CLOUDY Urine pH 5.5 Urine Specific [place] 1.021 Urine Protein 30 mg/dL Urine Glucose (UA) NEG mg/dL Urine Ketones NEG mg/dL Urine Occult Blood LARGE Urine Nitrite NEG Urine Bilirubin NEG Urine Urobilinogen LESS THAN 2.0 MG/DL Urine Leukocyte Esterase SMALL Urine RBC /hpf Urine Squamous Epithelial Cells 2 /hpf Urine Amorphous Sediment RARE Urine Bacteria RARE /hpf Urine Granular Casts 56 /lpf Urine Mucus FEW /lpf Microscopic Urinalysis Comment CULT NOT INDICATED MDM Medical Decision Making Medical Screen Exam Complete: Yes Emergency Medical Condition: Yes Medical Record Reviewed: Yes Interpretation(s) Laboratory Tests Test 01/31/17 14:52 01/31/17 16:00 Ovalocytes 1+ (NORMAL) Acanthocytes OCC (NORMAL) Prothrombin Time 41.1 SEC (9.8-11.6) Activated Partial Thromboplast Time 69.0 SEC (24.3-30.1) Blood Urea Nitrogen 22 MG/DL (7-18) Chloride Level 109 MEQ/L (98-107) Estimat Glomerular Filtration Rate 72 ML/MIN (>89) Urine Color BROWN (YELLW/STRAW) Urine Turbidity CLOUDY (CLEAR) Urine Protein 30 mg/dL (NEG-TRACE) Urine Occult Blood LARGE (NEG) Urine Leukocyte Esterase SMALL (NEG) Urine Bacteria RARE /hpf (NONE) Urine Mucus FEW /lpf (OCC) Differential Diagnosis Elevated INR/hematuria/blood in the stool Narrative Course INR is improving, is 3.5. She has blood in her urine, could be secondary to UTI. My plan would be to treat her for UTI as well. I will give her one more dose of vitamin K and at this point she is fairly stable with stable H&H and my plan would be to release her with close follow-up on Friday with her primary care physician and recheck of INR. We would hold Coumadin for now. Return for any worsening in bleeding, or new issues as needed. The plan has been discussed with her and she states understanding. Diagnosis Primary Impression: Hematuria Additional Impressions: UTI (urinary tract infection) Elevated INR Med/Other Pt SpecificInfo: Prescription(s) given, Med Stopped (hold Coumadin until Friday) Scripts Nitrofurantoin Monohydrate Macrocrystals (Macrobid) 100 Mg Capsule 100 MG PO BID for Infection for 7 Days, #14 CAP 0 Refills Prov: Nery Rinaldi MD 01/31/17 Disposition: 01 DISCHARGE HOME Condition: Stable Nery Rinaldi MD Jan 31, 2017 15:34
[2017-01-31 15:42] LABS: ALT (GPT) 27 U/L (10-53); ANION GAP 5 MEQ/L (5-15); AST (GOT) 16 U/L (15-37); BICARBONATE 24.6 MEQ/L (21.0-32.0); BLOOD UREA NITROGEN 22 MG/DL (7-18); CHLORIDE 109 MEQ/L (98-107); GLOMERULAR FILTRATION RATE 72 ML/MIN (>89); SODIUM (NA) 139 MEQ/L (136-145)
[2017-01-31 15:44] LABS: ALKALINE PHOSPHATASE 105 U/L (45-117); TOTAL BILIRUBIN ADULT 0.3 MG/DL (0.2-1.0)
[2017-01-31 15:49] LABS: ACANTHOCYTES OCC (NORMAL); OVALOCYTES 1+ (NORMAL)
[2017-01-31 15:50] LABS: SCAN/DIFF AUTO DIFF CONFIRMED
[2017-01-31 16:42] LABS: BACTERIA, URINE RARE /hpf; BLOOD, URINE LARGE (NEG); COMMENT (UR) CULT NOT INDICATED; CULTURE IF INDICATED CULT NOT INDICATED; GLUCOSE,URINE NEG (NEG); GRANULAR CAST, URINE 56 /lpf; KETONE, URINE NEG (NEG); MUCUS URINE FEW /lpf (OCC); NITRITE,URINE NEG (NEG); PH, URINE 5.5 (5.0-8.5); SQUAMOUS EPITHELIAL CELL URINE 2 /hpf (0-5)
[2017-01-31 16:45] LABS: URINE COLOR BROWN (YELLW/STRAW)
[2017-01-31] MEDS ORDERED: MACR100C2 PO (17:04)
[2017-01-31] MEDS ORDERED: PHYTONADIONE 5 MG TAB PO ONE (17:15)
== END 2017-01-31 18:03 | disposition home or self-care (01) ==
LOC: NEPE 14:23
DX: N39.0 Urinary tract infection, site not specified (principal); R31.9 Hematuria, unspecified; R79.1 Abnormal coagulation profile; F17.210 Nicotine dependence, cigarettes, uncomplicated; Z79.01 Long term (current) use of anticoagulants
CPT/HCPCS: 80053; 81001; 85025; 85610; 85730; 86850; 86900; 86901; 99283

== ENCOUNTER 2017-12-28 19:53 | Inpatient (IN) ==
[2017-12-28] MEDS ORDERED: Morphine Inj 4 MG/ML Vial IV.PUSH ONE (20:10)
[2017-12-28] MEDS ORDERED: Sod Chloride 0.9% Inj 1,000 ML IV.SIG ONE (20:10)
--- NOTE | 2017-12-28 20:18 | ED ---
HPI General Chief complaint: Abdominal Pain Stated complaint: Abd Pain Time Seen by Provider: 12/28/17 19:57 Source: patient, RN notes reviewed and old records reviewed Mode of arrival: EMS Limitations: no limitations History of Present Illness HPI narrative: 57-year-old female presents to the emergency department for evaluation of abdominal pain. Patient states that her friend called 911 because she is in severe abdominal pain for the past week. When asked that she has had this pain before, she states that she has had it and it was pancreatitis. She admits to drinking alcohol heavily for the past 3-4 weeks. She states she is drinking all day every day. Patient is a poor historian and does not know her past medical problems or her allergies. Patient reports the pain is generalized, 10/10, aching and sharp, intermittent. When asked, she also reports that she is having left-sided chest pain that started a couple of days ago. She states she has a history of pulmonary embolism and is supposed to be on anticoagulants, but is not taking any. She states her only medication is propranolol as she does not currently follow with a primary care physician. Patient also reports subjective fevers. Moderate severity. Onset (ago): week(s) (1) Location: abdomen Radiation: non-radiation Severity: moderate Severity scale (1-10): 10 Quality: sharp Pain Consistency: constant Relieving factors: none Exacerbating factors: none Associated symptoms: chest pain, fever/chills, nausea/vomiting (3 episodes of vomiting today) and other (diarrhea x multiple episodes today) Related Data Home Medications Medication Instructions Recorded Confirmed propranolol 10 mg PO BID 12/28/17 12/28/17 Allergies Allergy/AdvReac Type Severity Reaction Status Date / Time No Known Allergies Allergy Unverified 12/28/17 20:13 Review of Systems ROS: all other systems reviewed are negative PMFSH Medical History Medical History Anxiety (Acute) Bipolar 1 disorder (Acute) Depression (Acute) HTN (hypertension) (Acute) No significant past surgical history (Acute) Pancreatitis (Acute) Social History Social History Substance History: Active Abuse Second Hand Smoke Exposure: Yes Smoking Status: Current every day smoker Tobacco Type: Cigarettes How Often Do You Have a Drink Containing Alcohol: 4 or more times a week Exam Narrative Exam Narrative: GENERAL: Well-nourished, well-developed female patient, afebrile SKIN: Focused skin assessment warm/dry. HEAD: Normocephalic. Atraumatic EYES: No scleral icterus. No injection or drainage. NECK: Supple, trachea midline. No JVD or lymphadenopathy. CARDIOVASCULAR: Regular rate and rhythm without murmurs, gallops, or rubs. RESPIRATORY: Breath sounds equal bilaterally. No accessory muscle use. Lung sounds clear to auscultation GASTROINTESTINAL: Abdomen distended, tenderness to all areas of abdomen to palpation MUSCULOSKELETAL: No cyanosis, or edema. BACK: Nontender without obvious deformity. No CVA tenderness. Course Initial Documented Vital Signs Temperature 98.2 F 12/28/17 19:55 Pulse Rate 71 12/28/17 19:55 Respiratory Rate 16 12/28/17 19:55 Blood Pressure 143/84 H 12/28/17 19:55 Pulse Oximetry 100 12/28/17 19:55 Last Documented Vital Signs Temperature 98.2 F 12/28/17 19:55 Pulse Rate 71 12/28/17 19:55 Respiratory Rate 16 12/28/17 19:55 Blood Pressure 143/84 H 12/28/17 19:55 Pulse Oximetry 99 12/28/17 20:26 Medical Decision Making MDM Narrative Medical decision making narrative: 57-year-old female presents to the emergency department via EMS for evaluation of abdominal and chest pain. EKG, CBC, CMP, magnesium, CK, troponin, lipase, PTT, PT/INR, alcohol level, UA are ordered and pending. Chest x-ray, CT abdomen/pelvis with IV contrast, CT pulmonary angiogram are ordered and pending. Patient is given normal saline 1 L IV bolus , Zofran 4 mg IV, morphine 4 mg IV. EKG [-]. CBC shows leukopenia of 3.1. CMP shows hyponatremia of 125, bicarb of 19.4, elevated AST 242, ALT 257, alkaline phosphatase of 230. Lipase is 170. Magnesium is 2.0. CK is 151. Troponin is less than 0.02. PTT is 28.5. PT/INR is 10.0/1.0. Alcohol level is 283. UA is pending. Chest x-ray shows the lungs are clear. Ct abdomen/pelvis shows marked distention of the urinary bladder, no radiographic evidence of pancreatitis, stable Ct findings of severe fatty infiltration of the liver, intrathoracic stomach, IVC filter and lower anterior pelvic wall varices. CT pulmonary angiogram is negative for PE. The patient states that she urinated after CT scan. She denies any issues with urinating. I discussed the case with my attending physician, Dr. Nava, who agrees on admission for hyponatremia, intractable abdominal pain, chest pain. Upon reevaluation, patient still reports severe abdominal pain. She agrees with admission. Dr. Slater accepted admission. Medical Screen Exam Complete: Yes Emergency Medical Condition: Yes Differential Diagnosis Differential Diagnosis: Pancreatitis versus UTI versus liver cirrhosis versus pyelonephritis versus diverticulitis versus alcoholism versus chest wall pain versus anxiety versus ACS versus PE Medical Records Medical records reviewed: Yes I reviewed the patient's medical records. Lab Data Result diagrams: 12/28/17 20:20 12/28/17 20:20 Lab Results 12/28/17 12/28/17 12/28/17 Range/Units 20:20 20:20 20:20 WBC 3.1 L (4.0-11.0) th/mm3 RBC 5.41 H (4.00-5.30) mil/mm3 Hgb 14.8 (11.6-15.3) gm/dL Hct 44.5 (35.0-46.0) % MCV 82.2 (80.0-100.0) fL MCH 27.3 (27.0-34.0) pg MCHC 33.2 (32.0-36.0) % RDW 18.5 H (11.6-17.2) % Plt Count 204 (150-450) th/mm3 MPV 8.0 (7.0-11.0) fL Prelim Diff (Auto) Slide review pending Neut % (Auto) 40.5 (16.0-70.0) % Lymph % (Auto) 45.6 H (9.0-44.0) % [place] % (Auto) 12.4 H (0.0-8.0) % Eos % (Auto) 0.7 (0.0-4.0) % Baso % (Auto) 0.8 (0.0-2.0) % Neut # (Auto) 1.3 L (1.8-7.7) th/mm3 Lymph # (Auto) 1.4 (1.0-4.8) th/mm3 [place] # (Auto) 0.4 (0.0-0.9) th/mm3 Eos # (Auto) 0.0 (0.0-0.4) th/mm3 Baso # (Auto) 0.0 (0.0-0.2) th/mm3 WBC Differential . Diff Scan Auto diff confirmed Differential Comment . PT 10.0 (9.8-11.6) sec INR 1.0 Ratio APTT 28.5 (24.3-30.1) sec Sodium 125 L (136-145) meq/L Potassium 4.3 (3.5-5.1) meq/L Chloride 91 L (98-107) meq/L Carbon Dioxide 19.4 L (21.0-32.0) meq/L Anion Gap 15 (5-15) meq/L BUN 3 L (7-18) mg/dL Creatinine 0.61 (0.50-1.00) mg/dL Estimated GFR Greater than 89 (>89) mL/min Random Glucose 84 (74-106) mg/dL Calcium 8.7 (8.5-10.1) mg/dL Magnesium 2.0 (1.5-2.5) mg/dL Total Bilirubin 0.3 (0.2-1.0) mg/dL AST 242 H (15-37) U/L ALT 257 H (10-53) U/L Alkaline Phosphatase 230 H (45-117) U/L Total Creatine Kinase 151 (26-192) U/L CK-MB (CK-2) 3.0 (0.5-3.6) ng/mL Troponin I Less than 0.02 L (0.02-0.05) ng/mL Total Protein 7.8 (6.4-8.2) g/dL Albumin 3.8 (3.4-5.0) g/dL Lipase 170 (73-393) U/L Urine Color (Yellw/Straw) Urine Clarity (Clear) Urine pH (5.0-8.5) Ur Specific [place] (1.002-1.035) Urine Protein (Neg-Trace) mg/dL Urine Glucose (UA) (Negative) mg/dL Urine Ketones (Negative) mg/dL Urine Occult Blood (Negative) Urine Nitrate (Negative) Urine Bilirubin (Negative) Urine Urobilinogen (Less than 2) mg/dL Ur Leukocyte Esterase (Negative) Urine RBC (0-3) /hpf Urine WBC (0-5) /hpf Ur Squamous Epith Cells (0-5) /hpf Urine Bacteria (None) /hpf Micro UA Comment Urine Culture Comments Serum Alcohol 283 H (0-5) mg/dL 12/28/17 Range/Units 22:10 WBC (4.0-11.0) th/mm3 RBC (4.00-5.30) mil/mm3 Hgb (11.6-15.3) gm/dL Hct (35.0-46.0) % MCV (80.0-100.0) fL MCH (27.0-34.0) pg MCHC (32.0-36.0) % RDW (11.6-17.2) % Plt Count (150-450) th/mm3 MPV (7.0-11.0) fL Prelim Diff (Auto) Neut % (Auto) (16.0-70.0) % Lymph % (Auto) (9.0-44.0) % [place] % (Auto) (0.0-8.0) % Eos % (Auto) (0.0-4.0) % Baso % (Auto) (0.0-2.0) % Neut # (Auto) (1.8-7.7) th/mm3 Lymph # (Auto) (1.0-4.8) th/mm3 [place] # (Auto) (0.0-0.9) th/mm3 Eos # (Auto) (0.0-0.4) th/mm3 Baso # (Auto) (0.0-0.2) th/mm3 WBC Differential Diff Scan Differential Comment PT (9.8-11.6) sec INR Ratio APTT (24.3-30.1) sec Sodium (136-145) meq/L Potassium (3.5-5.1) meq/L Chloride (98-107) meq/L Carbon Dioxide (21.0-32.0) meq/L Anion Gap (5-15) meq/L BUN (7-18) mg/dL Creatinine (0.50-1.00) mg/dL Estimated GFR (>89) mL/min Random Glucose (74-106) mg/dL Calcium (8.5-10.1) mg/dL Magnesium (1.5-2.5) mg/dL Total Bilirubin (0.2-1.0) mg/dL AST (15-37) U/L ALT (10-53) U/L Alkaline Phosphatase (45-117) U/L Total Creatine Kinase (26-192) U/L CK-MB (CK-2) (0.5-3.6) ng/mL Troponin I (0.02-0.05) ng/mL Total Protein (6.4-8.2) g/dL Albumin (3.4-5.0) g/dL Lipase (73-393) U/L Urine Color Straw (Yellw/Straw) Urine Clarity Hazy H (Clear) Urine pH 6.0 (5.0-8.5) Ur Specific [place] 1.003 (1.002-1.035) Urine Protein Negative (Neg-Trace) mg/dL Urine Glucose (UA) Negative (Negative) mg/dL Urine Ketones Negative (Negative) mg/dL Urine Occult Blood Small H (Negative) Urine Nitrate Negative (Negative) Urine Bilirubin Negative (Negative) Urine Urobilinogen Less than 2 (Less than 2) mg/dL Ur Leukocyte Esterase Negative (Negative) Urine RBC Less than 1 (0-3) /hpf Urine WBC 1 (0-5) /hpf Ur Squamous Epith Cells <1 (0-5) /hpf Urine Bacteria Moderate H (None) /hpf Micro UA Comment Culture indicated Urine Culture Comments Culture indicated Serum Alcohol (0-5) mg/dL Imaging Data Radiologist's impression: Chest CTA 12/28/17 20:10 CONCLUSION: 1. The study is negative for pulmonary embolism. Chest X-Ray 12/28/17 20:10 CONCLUSION: The lungs are clear. Abdomen/Pelvis CT 12/28/17 20:11 CONCLUSION: 1. Marked distention of the urinary bladder. 2. No radiographic evidence of pancreatitis. 3. Stable CT findings of severe fatty infiltration of the liver, intrathoracic stomach, IVC filter and lower anterior pelvic wall varices. Discharge Plan Discharge Disposition Patient Disposition: 30 Still Patient Discharge Details Diagnosis: Hyponatremia, Intractable abdominal pain, Chest pain Physicians Team ED Provider: Karla Nava ED Midlevel Provider: Evon Busch Primary Care Provider: Primary Care Danisha Forrest Rxs /Orders / Referrals /Forms Prescriptions: No Action propranolol 10 mg Tablet 10 mg PO BID RF: 0 Status ED Status: With Doctor
[2017-12-28 20:45] LABS: Albumin 3.8 g/dL (3.4-5.0); Anion Gap 15 meq/L (5-15); Aspartate Aminotransferase 242 U/L (15-37); Blood Urea Nitrogen 3 mg/dL (7-18); Calcium 8.7 mg/dL (8.5-10.1); Carbon Dioxide 19.4 meq/L (21.0-32.0); Chloride 91 meq/L (98-107); Glomerular Filtration Rate Greater Than 89 mL/min (>89); Glucose,Random 84 mg/dL (74-106); Lipase 170 U/L (73-393); Potassium 4.3 meq/L (3.5-5.1); Sodium 125 meq/L (136-145)
[2017-12-28 20:46] LABS: Alanine Aminotransferase 257 U/L (10-53)
[2017-12-28 20:48] LABS: Alcohol 283 mg/dL (0-5); Alkaline Phosphatase 230 U/L (45-117); Creatine Kinase 151 U/L (26-192); Total Protein 7.8 g/dL (6.4-8.2)
[2017-12-28 20:57] LABS: Activated Partial Thrombo Time 28.5 sec (24.3-30.1)
--- NOTE | 2017-12-28 20:59 | XR ---
EXAM DATE: 12/28/2017 8:28 PM EDT AGE/SEX: 57 years / Female INDICATIONS: Lower chest pain. CLINICAL DATA: This is the patient's initial encounter. Patient reports that signs and symptoms have been present for 1 week and indicates a pain score of 9/10. MEDICAL/SURGICAL HISTORY: None. None. COMPARISON: [facility] [place] AP, 06/21/2016. . FINDINGS: A single AP view of the chest demonstrates the lungs to be symmetrically aerated without evidence of mass, infiltrate or effusion. Prominent retrocardiac density characteristic of hiatus hernia, simila r to prior. The cardiomediastinal contours are unremarkable. Osseous structures are intact. CONCLUSION: The lungs are clear. Electronically signed by: Raoul Gomez MD 12/28/2017 8:58 PM EDT
[2017-12-28 21:13] LABS: Baso % (Auto) 0.8 % (0.0-2.0); Eos % (Auto) 0.7 % (0.0-4.0); Hematocrit 44.5 % (35.0-46.0); Hemoglobin 14.8 gm/dL (11.6-15.3); Lymph # (Auto) 1.4 th/mm3 (1.0-4.8); Lymph % (Auto) 45.6 % (9.0-44.0); Mean Corpuscular HGB Conc 33.2 % (32.0-36.0); Mean Corpuscular Hemoglobin 27.3 pg (27.0-34.0); Mean Corpuscular Volume 82.2 fL (80.0-100.0); Mono # (Auto) 0.4 th/mm3 (0.0-0.9); Mono % (Auto) 12.4 % (0.0-8.0); Neut # (Auto) 1.3 th/mm3 (1.8-7.7); Neut % (Auto) 40.5 % (16.0-70.0); Platelet Count 204 th/mm3 (150-450); Red Blood Count 5.41 mil/mm3 (4.00-5.30); Red Cell Distribution Width 18.5 % (11.6-17.2); White Blood Count 3.1 th/mm3 (4.0-11.0)
--- NOTE | 2017-12-28 21:59 | CT ---
EXAM DATE: 12/28/2017 9:55 PM EDT AGE/SEX: 57 years / Female INDICATIONS: Chest pain; rule out pulmonary embolus. CLINICAL DATA: This is the patient's initial encounter. Patient reports that signs and symptoms have been present for 1 day and indicates a pain score of 7/10. MEDICAL/SURGICAL HISTORY: Pancreatitis. Hypertension. None. RADIATION DOSE: 21.03 CTDI (mGy) ; Combined studies COMPARISON: No prior exams available for comparison. TECHNIQUE: Volumetric scanning was performed using a multi-row detector CT scanner during bolus infu christopher of 74 ml Omnipaque 350 (iohexol) nonionic water-soluble contrast as a cumulative dose for multi ple exams. The data was post processed with a variety of visualization algorithms including full volu me maximum intensity projection and sliding thin slab reformation. Using automated exposure control a nd adjustment of the mA and/or kV according to patient size, radiation dose was kept as low as reason ably achievable to obtain optimal diagnostic quality images. DICOM format image data is available el ectronically for review and comparison. FINDINGS: Pulmonary Arteries: No filling defects are seen in the pulmonary arteries out to the subsegmental ve ssels. The left and right pulmonary arteries are normal in diameter. Lung: No infiltrates seen. Effusion: None. Mediastinum: No evidence of mediastinal or hilar adenopathy. Other: Hiatus hernia with intrathoracic stomach. Severe fatty change throughout the liver. CONCLUSION: 1. The study is negative for pulmonary embolism. Electronically signed by: Raoul Gomez MD 12/28/2017 9:57 PM EDT
--- NOTE | 2017-12-28 22:10 | CT ---
EXAM DATE: 12/28/2017 9:58 PM EDT AGE/SEX: 57 years / Female INDICATIONS: Upper abdominal pain; history of pancreatitis. CLINICAL DATA: This is the patient's initial encounter. Patient reports that signs and symptoms have been present for 1 week and indicates a pain score of 7/10. MEDICAL/SURGICAL HISTORY: Pancreatitis. Hypertension. None. ORAL CONTRAST: No oral contrast ingested. RADIATION DOSE: 21.03 CTDI (mGy) COMPARISON: [facility] – [place], CT ABDOMEN & PELVIS W CONTRAST, 06/28/2016. . TECHNIQUE: Multiple contiguous axial images were obtained through the abdomen and pelvis following b olus infusion of 74 ml Omnipaque 350 (iohexol) nonionic water-soluble contrast as a cumulative dose for multiple exams. No oral contrast ingested. Using automated exposure control and adjustment of t he mA and/or kV according to patient size, radiation dose was kept as low as reasonably achievable to obtain optimal diagnostic quality images. DICOM format image data is available electronically for r eview and comparison. FINDINGS: Lower Lungs: The visualized lower lungs are clear. Large hiatus hernia with intrathoracic stomach, si milar to prior. Liver: Severe fatty infiltration, similar to prior. No biliary ductal dilatation. No calcified gallst ones. Spleen: Homogeneous density without enlargement. Pancreas: Unremarkable without mass or calcification. Kidneys: Normal in size and shape. No evidence of mass or hydronephrosis. Adrenal Glands: Unremarkable. Aorta: The aorta and proximal iliac vessels are grossly unremarkable without aneurysmal dilation. Bowel/Mesentery: No dilated loops of small or large bowel. No evidence of free fluid. Abdominal Wall: Intact. Retroperitoneum: No evidence of adenopathy in the retrocrural, para-aortic, or deep pelvic regions. IVC filter in place. Reproductive Organs: No abnormal masses or calcifications seen. Inguinal: The inguinal region is unremarkable without evidence of adenopathy. Prominent varicosities in the low anterior pelvic wall, stable from prior. Bladder: Markedly distended. Smooth margins. Bony Structures: Unremarkable. CONCLUSION: 1. Marked distention of the urinary bladder. 2. No radiographic evidence of pancreatitis. 3. Stable CT findings of severe fatty infiltration of the liver, intrathoracic stomach, IVC filter a nd lower anterior pelvic wall varices. Electronically signed by: Raoul Gomez MD 12/28/2017 10:09 PM EDT
[2017-12-28 22:47] LABS: Bacteria,Urine Moderate /hpf; Bilirubin,Urine Negative (Negative); Color,Urine Straw (Yellw/Straw); Glucose,Urine (UA) Negative (Negative); Leukocyte Esterase,Urine Negative (Negative); Nitrite,Urine Negative (Negative); Specific Gravity,Urine 1.003 (1.002-1.035); Squamous Epithelial Cell,Urine <1 /hpf (0-5)
[2017-12-28 22:48] LABS: Clarity,Urine Hazy (Clear)
[2017-12-28] MEDS ORDERED: Haloperidol Inj 5 MG/ML Ampul IV.PUSH PRN (23:53)
--- NOTE | 2017-12-28 23:57 | P.HP ---
History of Present Illness Service: [facility] Primary Care Physician: No Primary Care Physician History of Present Illness: 57-year-old female with a past medical history of alcohol abuse, anxiety/ bipolar disorder/depression, hypertension and a history of recurrent pancreatitis presents the emergency department for evaluation of abdominal and chest pain. The patient reports that her friend called 911 because she has had abdominal pain for the past week. She states that the pain is very similar to her previous episodes of pancreatitis. The patient admits to drinking heavily for the past 3-4 weeks but refuses to quantify the exact amount. She also reports associated chest pain that is somewhat better but at the time of her arrival. She reports the chest pain started a couple of days ago and is on the left side, nonradiating and she describes it as a sharp pain that is worse with inspiration. She also reports a history of PE and states she is supposed to be on chronic anticoagulation but is not compliant with this. She cannot tell me what medication she is supposed to be on. She does not have a primary care physician. Patient also endorses subjective associated fevers for the past week. No nausea/vomiting/diarrhea. No shortness of breath. No lateralizing signs/symptoms. Review of Systems All other systems reviewed negative except as stated in HPI PMFSH - History History Provided By: Patient, Tiller Man / EMT - Medical / Surgical Hx Neg / Unobtainable Surgical History: No Previous Surgery - Medical History Medical History: Medical History (Last Updated 12/28/17 @ 20:12 by Deirdre Hilario) Anxiety Bipolar 1 disorder Depression HTN (hypertension) No significant past surgical history Pancreatitis - Family History Family History: Family History (Last Updated 12/28/17 @ 23:49 by Deirdre Slater MD) Other Family history normal - Tobacco History Second Hand Smoke Exposure: Yes Tobacco Use In Past 30 Days: Yes Smoking Status: Current every day smoker Tobacco Type: Cigarettes - Alcohol History How Often Do You Have a Drink Containing Alcohol: 4 or more times a week - Substance Use History Substance History: Active Abuse - Substance Use Type Marijuana Status: Active Route Used: By Mouth Reason for Use: Feels Good - Immunization History Tetanus Immunization: Unsure Hx Influenza Vaccine This Season: No Medications and Allergies Active Medications: Active Medications Sodium Chloride (Ns Flush) 2 ml IV.FLUSH UNSCH PRN PRN Reason: FLUSH AFTER USING IV ACCESS Last Admin: 12/28/17 20:33 Dose: 2 ml Allergies Allergy/AdvReac Type Severity Reaction Status Date / Time No Known Allergies Allergy Unverified 12/28/17 20:13 Home Medications Medication Instructions Recorded Confirmed Type propranolol 10 mg PO BID 12/28/17 12/28/17 History Exam Vital signs: Vital Signs 12/28/17 19:55 12/28/17 20:26 Temperature 98.2 F Pulse Rate 71 Respiratory Rate 16 Blood Pressure 143/84 H Pulse Oximetry 100 99 Intake & Output 12/28/17 12/28/17 12/29/17 06:59 18:59 06:59 Intake Total 1000 / 1000 Balance 1000 / 1000 Weight 77.111 kg Intake: IV 1000 / 1000 NS Inj 1,000 ML @ Wide Open IV. 1000 / 1000 SIG BOLUS ONE Rx#:[id number] Narrative: Gen.: No acute distress Head: Normocephalic. Atraumatic. EENT: Pupils equal round and reactive to light. Nose without drainage. Airway intact. Throat without injection. Cardiovascular: Regular rate and rhythm. No murmurs, rubs or gallops. Respiratory: Lungs clear to auscultation bilaterally. No wheezes or rhonchi. Abdomen: Soft, diffusely tender to palpation, mildly distended. No peritoneal signs. Musculoskeletal: No gross deformities. No edema. Skin: No obvious rashes or erythema. Neuro: Sensory and motor grossly intact. Cranial nerves II through XII grossly intact. Results - Labs CBC & Chem 7: 12/28/17 20:20 12/28/17 20:20 Labs: Laboratory Results - last 24 hr 12/28/17 12/28/17 12/28/17 20:20 20:20 20:20 WBC 3.1 L RBC 5.41 H Hgb 14.8 Hct 44.5 MCV 82.2 MCH 27.3 MCHC 33.2 RDW 18.5 H Plt Count 204 MPV 8.0 Prelim Diff (Auto) Slide review pending Neut % (Auto) 40.5 Lymph % (Auto) 45.6 H [place] % (Auto) 12.4 H Eos % (Auto) 0.7 Baso % (Auto) 0.8 Neut # (Auto) 1.3 L Lymph # (Auto) 1.4 [place] # (Auto) 0.4 Eos # (Auto) 0.0 Baso # (Auto) 0.0 WBC Differential . Diff Scan Auto diff confirmed Differential Comment . PT 10.0 INR 1.0 APTT 28.5 Sodium 125 L Potassium 4.3 Chloride 91 L Carbon Dioxide 19.4 L Anion Gap 15 BUN 3 L Creatinine 0.61 Estimated GFR Greater than 89 Random Glucose 84 Calcium 8.7 Magnesium 2.0 Total Bilirubin 0.3 AST 242 H ALT 257 H Alkaline Phosphatase 230 H Total Creatine Kinase 151 CK-MB (CK-2) 3.0 Troponin I Less than 0.02 L Total Protein 7.8 Albumin 3.8 Lipase 170 Urine Color Urine Clarity Urine pH Ur Specific [place] Urine Protein Urine Glucose (UA) Urine Ketones Urine Occult Blood Urine Nitrate Urine Bilirubin Urine Urobilinogen Ur Leukocyte Esterase Urine RBC Urine WBC Ur Squamous Epith Cells Urine Bacteria Micro UA Comment Urine Culture Comments Serum Alcohol 283 H 12/28/17 22:10 WBC RBC Hgb Hct MCV MCH MCHC RDW Plt Count MPV Prelim Diff (Auto) Neut % (Auto) Lymph % (Auto) [place] % (Auto) Eos % (Auto) Baso % (Auto) Neut # (Auto) Lymph # (Auto) [place] # (Auto) Eos # (Auto) Baso # (Auto) WBC Differential Diff Scan Differential Comment PT INR APTT Sodium Potassium Chloride Carbon Dioxide Anion Gap BUN Creatinine Estimated GFR Random Glucose Calcium Magnesium Total Bilirubin AST ALT Alkaline Phosphatase Total Creatine Kinase CK-MB (CK-2) Troponin I Total Protein Albumin Lipase Urine Color Straw Urine Clarity Hazy H Urine pH 6.0 Ur Specific [place] 1.003 Urine Protein Negative Urine Glucose (UA) Negative Urine Ketones Negative Urine Occult Blood Small H Urine Nitrate Negative Urine Bilirubin Negative Urine Urobilinogen Less than 2 Ur Leukocyte Esterase Negative Urine RBC Less than 1 Urine WBC 1 Ur Squamous Epith Cells <1 Urine Bacteria Moderate H Micro UA Comment Culture indicated Urine Culture Comments Culture indicated Serum Alcohol - Imaging Impressions Chest CTA 12/28/17 20:10 CONCLUSION: 1. The study is negative for pulmonary embolism. Chest X-Ray 12/28/17 20:10 CONCLUSION: The lungs are clear. Abdomen/Pelvis CT 12/28/17 20:11 CONCLUSION: 1. Marked distention of the urinary bladder. 2. No radiographic evidence of pancreatitis. 3. Stable CT findings of severe fatty infiltration of the liver, intrathoracic stomach, IVC filter and lower anterior pelvic wall varices. Caprini VTE Risk Assessment Caprini VTE Risk Assessment: Moderate/High Risk (score >= 2) Caprini Risk Assessment Model: Point Value = 1 Point Value = 2 Point Value = 3 Point Value = 5 Age 41-60 Minor surgery BMI > 25 kg/m2 Swollen legs Varicose veins or History of unexplained or recurrent spontaneous Oral contraceptives or hormone replacement Sepsis (< 1 month) Serious lung disease, including pneumonia (< 1 month) Abnormal pulmonary function Acute myocardial infarction Congestive heart failure (< 1 month) History of inflammatory bowel disease Medical patient at bed rest Age 61-74 Arthroscopic surgery Major open surgery (> 45 min) Laparoscopic surgery (> 45 min) Malignancy Confined to bed (> 72 hours) Immobilizing plaster cast Central venous access Age >= 75 History of VTE Family history of VTE Factor V Leiden Prothrombin [id number] Lupus anticoagulant Anticardiolipin antibodies Elevated serum homocysteine Heparin-induced thrombocytopenia Other congenital or acquired thrombophilia Stroke (< 1 month) Elective arthroplasty Hip, pelvis, or leg fracture Acute spinal cord injury (< 1 month) Prophylaxis Regimen: Total Risk Factor Score Risk Level Prophylaxis Regimen 0-1 Low Early ambulation 2 Moderate Order ONE of the following: *Sequential Compression Device (SCD) *Heparin 5000 units SQ BID 3-4 Higher Order ONE of the following medications: *Heparin 5000 units SQ TID *Enoxaparin/Lovenox 40 mg SQ daily (WT < 150 kg, CrCl > 30 mL/min) *Enoxaparin/Lovenox 30 mg SQ daily (WT < 150 kg, CrCl > 10-29 mL/min) *Enoxaparin/Lovenox 30 mg SQ BID (WT < 150 kg, CrCl > 30 mL/min) AND/OR *Sequential Compression Device (SCD) 5 or more Highest Order ONE of the following medications: *Heparin 5000 units SQ TID (Preferred with Epidurals) *Enoxaparin/Lovenox 40 mg SQ daily (WT < 150 kg, CrCl > 30 mL/min) *Enoxaparin/Lovenox 30 mg SQ daily (WT < 150 kg, CrCl > 10-29 mL/min) *Enoxaparin/Lovenox 30 mg SQ BID (WT < 150 kg, CrCl > 30 mL/min) AND *Sequential Compression Device (SCD) Assessment and Plan - Plan Assessment/plan: 1. Abdominal pain Unclear etiology CT of the abdomen/pelvis negative for acute process Suspect secondary to alcohol abuse Lipase within normal limits Supportive care 2. Chest pain Initial troponin negative EKG without signs of ischemia, personally reviewed ACS rule out pending; serial troponins/EKGs 3. Hyponatremia Sodium 125 Likely secondary to alcohol abuse Fluid restriction Gentle IV fluid hydration 4. History of pulmonary emboli Patient with IVC filter in place Reports she is supposed to be on chronic anticoagulation therapy however is not taking any Prophylactic heparin Patient will need to follow-up as an outpatient for initiation of systemic anticoagulation if deemed necessary 5. Alcohol abuse/transaminitis CT of the abdomen/pelvis significant for fatty liver Hepatitis profile pending Likely secondary to alcohol abuse [facility] protocol Thiamine Monitor for signs of withdrawal FEN Regular diet with fluid restriction Electrolytes: As above Heparin NS at 70 cc/hour
[2017-12-29] MEDS: Sod Chloride 0.9% Inj 1,000 ML IV.CONT SCH ×2 (01:09→18:40)
[2017-12-29 03:00] LABS: Baso % (Auto) 0.8 % (0.0-2.0); Eos % (Auto) 0.8 % (0.0-4.0); Hematocrit 41.9 % (35.0-46.0); Hemoglobin 13.8 gm/dL (11.6-15.3); Lymph # (Auto) 0.6 th/mm3 (1.0-4.8); Lymph % (Auto) 24.4 % (9.0-44.0); Mean Corpuscular Hemoglobin 27.3 pg (27.0-34.0); Mean Corpuscular Volume 82.5 fL (80.0-100.0); Mono # (Auto) 0.2 th/mm3 (0.0-0.9); Mono % (Auto) 9.9 % (0.0-8.0); Neut # (Auto) 1.6 th/mm3 (1.8-7.7); Neut % (Auto) 64.1 % (16.0-70.0); Platelet Count 148 th/mm3 (150-450); Red Blood Count 5.08 mil/mm3 (4.00-5.30); Red Cell Distribution Width 18.6 % (11.6-17.2); White Blood Count 2.5 th/mm3 (4.0-11.0)
[2017-12-29 03:21] LABS: Anion Gap 8 meq/L (5-15); Blood Urea Nitrogen 4 mg/dL (7-18); Carbon Dioxide 23.8 meq/L (21.0-32.0); Chloride 99 meq/L (98-107); Glomerular Filtration Rate Greater Than 89 mL/min (>89); Glucose,Random 79 mg/dL (74-106); Potassium 4.2 meq/L (3.5-5.1); Sodium 131 meq/L (136-145)
[2017-12-29 03:45] LABS: Creatine Kinase 116 U/L (26-192)
[2017-12-29 04:45] LABS: Hepatitis A IgM Antibody Nonreactive (Nonreactive); Hepatitits B Surface Antigen Nonreactive (Nonreactive)
[2017-12-29] MEDS: Heparin - SQ 10,000 UNITS/ML Vial SQ SCH ×3 (07:55→23:12)
[2017-12-29 11:57] LABS: Creatine Kinase 109 U/L (26-192)
[2017-12-29] MEDS: Lactobacillus Acidophilus/L. Spores Tablet PO SCH ×2 (12:09→18:38)
[2017-12-29] MEDS: LORazepam 1 MG Tablet PO PRN ×3 (12:20→23:12)
--- NOTE | 2017-12-29 14:07 | P.PNIM ---
Subjective Interval history: Pain is improved, monitor for improvement. Patient reports she had a seizure last night. IV Ativan was given. Delirium tremens is present. Physical Exam Vital signs: Vital Signs 12/28/17 19:55 12/28/17 20:26 12/28/17 23:30 Temperature 98.2 F Pulse Rate 71 58 L Respiratory Rate 16 16 Blood Pressure 143/84 H 100/68 Pulse Oximetry 100 99 98 12/29/17 00:00 12/29/17 04:00 12/29/17 07:51 Temperature 98.1 F 98.1 F 98.2 F Pulse Rate 55 L 59 L 75 Respiratory Rate 20 20 18 Blood Pressure 110/68 138/84 166/111 H Pulse Oximetry 98 96 94 L 12/29/17 08:03 12/29/17 12:00 Temperature 98.4 F Pulse Rate 72 Respiratory Rate 20 Blood Pressure 190/95 H Pulse Oximetry 96 95 Intake & Output 12/28/17 12/29/17 12/29/17 18:59 06:59 18:59 Intake Total 1000 / 1000 Balance 1000 / 1000 Weight 77.111 kg Intake: IV 1000 / 1000 NS Inj 1,000 ML @ Wide Open IV. 1000 / 1000 SIG BOLUS ONE Rx#:[id number] Narrative: GENERAL: NAD, A&Ox3, diffuse tremors HEAD: Normocephalic. NECK: Supple, trachea midline. No lymphadenopathy. EYES: No scleral icterus. No injection or drainage. CARDIOVASCULAR: Regular rate and rhythm without murmurs, gallops, or rubs. RESPIRATORY: Breath sounds equal bilaterally. No accessory muscle use. GASTROINTESTINAL: Abdomen soft, non-tender, nondistended. MUSCULOSKELETAL: No cyanosis, or edema. SKIN: Warm and dry. NEURO: No focal neurological deficits. Results - Labs CBC & Chem 7: 12/29/17 02:47 12/29/17 02:47 Laboratory Results - last 24 hr 12/28/17 12/28/17 12/28/17 20:20 20:20 20:20 WBC 3.1 L RBC 5.41 H Hgb 14.8 Hct 44.5 MCV 82.2 MCH 27.3 MCHC 33.2 RDW 18.5 H Plt Count 204 MPV 8.0 Prelim Diff (Auto) Slide review pending Neut % (Auto) 40.5 Lymph % (Auto) 45.6 H [place] % (Auto) 12.4 H Eos % (Auto) 0.7 Baso % (Auto) 0.8 Neut # (Auto) 1.3 L Lymph # (Auto) 1.4 [place] # (Auto) 0.4 Eos # (Auto) 0.0 Baso # (Auto) 0.0 WBC Differential . Diff Scan Auto diff confirmed Differential Comment . PT 10.0 INR 1.0 APTT 28.5 Sodium 125 L Potassium 4.3 Chloride 91 L Carbon Dioxide 19.4 L Anion Gap 15 BUN 3 L Creatinine 0.61 Estimated GFR Greater than 89 Random Glucose 84 Calcium 8.7 Magnesium 2.0 Total Bilirubin 0.3 AST 242 H ALT 257 H Alkaline Phosphatase 230 H Total Creatine Kinase 151 CK-MB (CK-2) 3.0 Troponin I Less than 0.02 L Total Protein 7.8 Albumin 3.8 Lipase 170 Urine Color Urine Clarity Urine pH Ur Specific [place] Urine Protein Urine Glucose (UA) Urine Ketones Urine Occult Blood Urine Nitrate Urine Bilirubin Urine Urobilinogen Ur Leukocyte Esterase Urine RBC Urine WBC Ur Squamous Epith Cells Urine Bacteria Micro UA Comment Urine Culture Comments Serum Alcohol 283 H Hepatitis A IgM Ab Hep Bs Antigen Hep B Core IgM Ab Hep C IgG Ab 12/28/17 12/29/17 12/29/17 22:10 02:47 02:47 WBC 2.5 L RBC 5.08 Hgb 13.8 Hct 41.9 MCV 82.5 MCH 27.3 MCHC 33.0 RDW 18.6 H Plt Count 148 L MPV 8.0 Prelim Diff (Auto) Neut % (Auto) 64.1 Lymph % (Auto) 24.4 [place] % (Auto) 9.9 H Eos % (Auto) 0.8 Baso % (Auto) 0.8 Neut # (Auto) 1.6 L Lymph # (Auto) 0.6 L [place] # (Auto) 0.2 Eos # (Auto) 0.0 Baso # (Auto) 0.0 WBC Differential . Diff Scan Differential Comment Auto diff final PT INR APTT Sodium Potassium Chloride Carbon Dioxide Anion Gap BUN Creatinine Estimated GFR Random Glucose Calcium Magnesium Total Bilirubin AST ALT Alkaline Phosphatase Total Creatine Kinase CK-MB (CK-2) Troponin I Total Protein Albumin Lipase Urine Color Straw Urine Clarity Hazy H Urine pH 6.0 Ur Specific [place] 1.003 Urine Protein Negative Urine Glucose (UA) Negative Urine Ketones Negative Urine Occult Blood Small H Urine Nitrate Negative Urine Bilirubin Negative Urine Urobilinogen Less than 2 Ur Leukocyte Esterase Negative Urine RBC Less than 1 Urine WBC 1 Ur Squamous Epith Cells <1 Urine Bacteria Moderate H Micro UA Comment Culture indicated Urine Culture Comments Culture indicated Serum Alcohol Hepatitis A IgM Ab Nonreactive Hep Bs Antigen Nonreactive Hep B Core IgM Ab Nonreactive Hep C IgG Ab Nonreactive 12/29/17 12/29/17 02:47 11:05 WBC RBC Hgb Hct MCV MCH MCHC RDW Plt Count MPV Prelim Diff (Auto) Neut % (Auto) Lymph % (Auto) [place] % (Auto) Eos % (Auto) Baso % (Auto) Neut # (Auto) Lymph # (Auto) [place] # (Auto) Eos # (Auto) Baso # (Auto) WBC Differential Diff Scan Differential Comment PT INR APTT Sodium 131 L Potassium 4.2 Chloride 99 D Carbon Dioxide 23.8 Anion Gap 8 BUN 4 L Creatinine 0.66 Estimated GFR Greater than 89 Random Glucose 79 Calcium 8.0 L Magnesium Total Bilirubin AST ALT Alkaline Phosphatase Total Creatine Kinase 116 109 CK-MB (CK-2) Troponin I Less than 0.02 L Less than 0.02 L Total Protein Albumin Lipase Urine Color Urine Clarity Urine pH Ur Specific [place] Urine Protein Urine Glucose (UA) Urine Ketones Urine Occult Blood Urine Nitrate Urine Bilirubin Urine Urobilinogen Ur Leukocyte Esterase Urine RBC Urine WBC Ur Squamous Epith Cells Urine Bacteria Micro UA Comment Urine Culture Comments Serum Alcohol Hepatitis A IgM Ab Hep Bs Antigen Hep B Core IgM Ab Hep C IgG Ab Microbiology 12/28/17 22:10 Clean Catch Urine Urine Culture - Preliminary Immature growth - reincubate - Imaging Impressions Chest CTA 12/28/17 20:10 CONCLUSION: 1. The study is negative for pulmonary embolism. Chest X-Ray 12/28/17 20:10 CONCLUSION: The lungs are clear. Abdomen/Pelvis CT 12/28/17 20:11 CONCLUSION: 1. Marked distention of the urinary bladder. 2. No radiographic evidence of pancreatitis. 3. Stable CT findings of severe fatty infiltration of the liver, intrathoracic stomach, IVC filter and lower anterior pelvic wall varices. Assessment and Plan - Plan 57-year-old female admitted secondary to hyponatremia, chest pain, abdominal pain, and alcohol intoxication Alcohol withdrawal seizure Delirium tremens Continue CIWA protocol Librium Thiamine Folic acid C vitamin Abdominal pain Chest pain Improved May be related to alcohol abuse Monitor for recurrence Negative cardiac workup Hyponatremia Likely related to alcohol abuse Improving today at 131, sodium 125 at admit IV hydration Free fluid restriction History of pulmonary emboli IVC filter in place Continue heparin Alcohol abuse Patient counseled to quit DVT prophylaxis Heparin
--- NOTE | 2017-12-29 17:19 | ECG ---
Date Performed: 12/28/2017 Time Performed: 22:49:12 PTAGE: 57 years EKG: SINUS BRADYCARDIA BORDERLINE ECG PREVIOUS TRACING : 12/05/2016 19.28 Since the previous tracing, no significant change noted DOCTOR: Roni Mejia Interpretating Date/Time 12/29/2017 17:18:57
[2017-12-30] MEDS: Sod Chloride 0.9% Inj 1,000 ML IV.CONT SCH ×2 (06:11→18:52)
[2017-12-30] MEDS: LORazepam 1 MG Tablet PO PRN ×4 (06:19→20:53)
[2017-12-30] MEDS: Heparin - SQ 10,000 UNITS/ML Vial SQ SCH ×3 (06:19→22:00)
[2017-12-30] MEDS: Lactobacillus Acidophilus/L. Spores Tablet PO SCH ×3 (10:19→18:56)
--- NOTE | 2017-12-30 11:25 | P.PNIM ---
Subjective Interval history: Improvement in delirium tremens symptoms, tremors remain. Patient is able to ambulate today. No further seizure activity. Physical Exam Vital signs: Vital Signs 12/29/17 12:00 12/29/17 16:00 12/29/17 20:00 Temperature 98.4 F 98.0 F 99.1 F Pulse Rate 72 66 74 Respiratory Rate 20 18 19 Blood Pressure 190/95 H 186/89 H 153/97 H Pulse Oximetry 95 96 98 12/30/17 02:58 12/30/17 08:00 Temperature 98.2 F 98.3 F Pulse Rate 66 70 Respiratory Rate 19 16 Blood Pressure 167/83 H 166/93 H Pulse Oximetry 92 L 99 Intake & Output 12/29/17 12/30/17 12/30/17 18:59 06:59 18:59 Intake Total 620 / 620 1000 / 1000 Balance 620 / 620 1000 / 1000 Intake: IV 1000 / 1000 NS Inj 1,000 ML @ 70 mls/hr IV. 1000 / 1000 CONT .[id number] FABIOLA Rx#:[id number] Oral 620 / 620 Other: # Voids 3 # Bowel Movements 1 Narrative: GENERAL: NAD, A&Ox3, diffuse tremors HEAD: Normocephalic. NECK: Supple, trachea midline. No lymphadenopathy. EYES: No scleral icterus. No injection or drainage. CARDIOVASCULAR: Regular rate and rhythm without murmurs, gallops, or rubs. RESPIRATORY: Breath sounds equal bilaterally. No accessory muscle use. GASTROINTESTINAL: Abdomen soft, non-tender, nondistended. MUSCULOSKELETAL: No cyanosis, or edema. SKIN: Warm and dry. NEURO: No focal neurological deficits. Results - Labs CBC & Chem 7: 12/29/17 02:47 12/29/17 02:47 Laboratory Results - last 24 hr 12/29/17 11:05 Total Creatine Kinase 109 Troponin I Less than 0.02 L Microbiology 12/28/17 22:10 Clean Catch Urine Urine Culture - Preliminary Immature growth - reincubate Assessment and Plan - Plan 57-year-old female admitted secondary to hyponatremia, chest pain, abdominal pain, and alcohol intoxication Increase Librium from every 8 hours to every 6 hours. Continue CIWA protocol. Monitor for improvement delirium tremens. Alcohol withdrawal seizure Delirium tremens Continue CIWA protocol Librium Thiamine Folic acid C vitamin Abdominal pain Chest pain Improved May be related to alcohol abuse Monitor for recurrence Negative cardiac workup Hyponatremia Likely related to alcohol abuse Improving Continue to monitor sodium levels IV hydration Free fluid restriction History of pulmonary emboli IVC filter in place Continue heparin Alcohol abuse Patient counseled to quit DVT prophylaxis Heparin
[2017-12-30 11:45] LABS: Baso % (Auto) 1.2 % (0.0-2.0); Eos % (Auto) 0.8 % (0.0-4.0); Hematocrit 40.2 % (35.0-46.0); Hemoglobin 13.2 gm/dL (11.6-15.3); Lymph # (Auto) 0.7 th/mm3 (1.0-4.8); Lymph % (Auto) 30.2 % (9.0-44.0); Mean Corpuscular Hemoglobin 27.6 pg (27.0-34.0); Mean Corpuscular Volume 83.7 fL (80.0-100.0); Mean Platelet Volume 8.1 fL (7.0-11.0); Mono # (Auto) 0.3 th/mm3 (0.0-0.9); Mono % (Auto) 14.5 % (0.0-8.0); Neut # (Auto) 1.2 th/mm3 (1.8-7.7); Neut % (Auto) 53.3 % (16.0-70.0); Platelet Count 128 th/mm3 (150-450); Red Cell Distribution Width 18.1 % (11.6-17.2); White Blood Count 2.2 th/mm3 (4.0-11.0)
[2017-12-30 12:06] LABS: Alanine Aminotransferase 215 U/L (10-53); Albumin 3.3 g/dL (3.4-5.0); Anion Gap 7 meq/L (5-15); Aspartate Aminotransferase 234 U/L (15-37); Blood Urea Nitrogen 9 mg/dL (7-18); Calcium 8.6 mg/dL (8.5-10.1); Carbon Dioxide 24.4 meq/L (21.0-32.0); Chloride 100 meq/L (98-107); Glomerular Filtration Rate 69 mL/min (>89); Glucose,Random 78 mg/dL (74-106); Potassium 4.4 meq/L (3.5-5.1); Sodium 131 meq/L (136-145)
[2017-12-30 12:08] LABS: Alkaline Phosphatase 195 U/L (45-117); Total Protein 6.8 g/dL (6.4-8.2)
[2017-12-31] MEDS: LORazepam 1 MG Tablet PO PRN ×5 (02:31→20:49)
[2017-12-31] MEDS: Sod Chloride 0.9% Inj 1,000 ML IV.CONT SCH ×3 (06:07→18:22)
[2017-12-31] MEDS: Heparin - SQ 10,000 UNITS/ML Vial SQ SCH ×3 (06:09→23:00)
[2017-12-31 08:20] LABS: Baso % (Auto) 1.3 % (0.0-2.0); Eos % (Auto) 1.6 % (0.0-4.0); Hematocrit 36.1 % (35.0-46.0); Lymph # (Auto) 1.1 th/mm3 (1.0-4.8); Lymph % (Auto) 47.7 % (9.0-44.0); Mean Corpuscular HGB Conc 33.4 % (32.0-36.0); Mean Corpuscular Hemoglobin 27.8 pg (27.0-34.0); Mean Corpuscular Volume 83.2 fL (80.0-100.0); Mean Platelet Volume 8.3 fL (7.0-11.0); Mono # (Auto) 0.3 th/mm3 (0.0-0.9); Mono % (Auto) 11.5 % (0.0-8.0); Neut # (Auto) 0.8 th/mm3 (1.8-7.7); Neut % (Auto) 37.9 % (16.0-70.0); Platelet Count 112 th/mm3 (150-450); Red Blood Count 4.34 mil/mm3 (4.00-5.30); Red Cell Distribution Width 18.4 % (11.6-17.2); White Blood Count 2.2 th/mm3 (4.0-11.0)
[2017-12-31 08:40] LABS: Alanine Aminotransferase 181 U/L (10-53)
[2017-12-31 08:42] LABS: Albumin 2.9 g/dL (3.4-5.0); Alkaline Phosphatase 165 U/L (45-117); Anion Gap 12 meq/L (5-15); Aspartate Aminotransferase 166 U/L (15-37); Blood Urea Nitrogen 8 mg/dL (7-18); Calcium 8.3 mg/dL (8.5-10.1); Carbon Dioxide 20.4 meq/L (21.0-32.0); Chloride 100 meq/L (98-107); Glomerular Filtration Rate 87 mL/min (>89); Glucose,Random 82 mg/dL (74-106); Potassium 4.1 meq/L (3.5-5.1); Sodium 132 meq/L (136-145); Total Protein 6.3 g/dL (6.4-8.2)
[2017-12-31 09:26] LABS: Eosinophils 1 % (0-4); Lymphocytes 43 % (9-44); Monocytes 7 % (0-8)
[2017-12-31 09:27] LABS: Ovalocytes 1+; Platelet Morphology Normal (Normal)
[2017-12-31] MEDS: Lactobacillus Acidophilus/L. Spores Tablet PO SCH ×3 (09:47→18:22)
--- NOTE | 2017-12-31 13:02 | P.PN ---
Subjective Interval history: pt awake, oriented 3, does not feel well, still feels jittery. Complains of diffuse abdominal tenderness with loose stools, 3 this morning. No nausea, no vomiting. Appetite poor. Eating small amounts. No fever. Indicates that she had quit drinking for several months and just relapsed. Interested in going to outpatient rehab. Physical Exam Vital signs: Vital Signs 12/30/17 16:00 12/30/17 17:35 12/30/17 20:00 Temperature 98.3 F 97.6 F Pulse Rate 77 73 Respiratory Rate 18 Blood Pressure 184/103 H 180/110 H 135/89 Pulse Oximetry 100 97 12/31/17 00:00 12/31/17 04:00 12/31/17 08:00 Temperature 97.7 F 98.0 F 98.0 F Pulse Rate 64 63 57 L Respiratory Rate 18 18 18 Blood Pressure 149/81 H 137/80 142/85 H Pulse Oximetry 95 95 95 12/31/17 12:00 Temperature 97.8 F Pulse Rate 71 Respiratory Rate 17 Blood Pressure 144/88 H Pulse Oximetry 97 Intake & Output 12/30/17 12/31/17 12/31/17 18:59 06:59 18:59 Intake Total 1680 / 1680 1240 / 1240 Output Total 4 / 4 Balance 1676 / 1676 1240 / 1240 Weight 93.2 kg Intake: IV 1000 / 1000 NS Inj 1,000 ML @ 70 mls/hr IV. 1000 / 1000 CONT .[id number] FABIOLA Rx#:[id number] Oral 1480 / 1480 240 / 240 Oral Supplement 200 / 200 Output: Urine 4 / 4 Other: # Voids 2 # Incontinent Bowel Movements 0 Narrative: GENERAL: Well-nourished, well-developed patient in no apparent distress. SKIN: Warm and dry. HEAD: Atraumatic. Normocephalic. EYES: Pupils equal and round. No scleral icterus. No injection or drainage. ENT: No nasal bleeding or discharge. Mucous membranes pink and moist. NECK: Trachea midline. No JVD. CARDIOVASCULAR: Regular rate and rhythm. RESPIRATORY: No accessory muscle use. Clear to auscultation. Breath sounds equal bilaterally. GASTROINTESTINAL: Abdomen soft, mild tenderness epigastric area, nondistended. Hepatic and splenic margins not palpable. MUSCULOSKELETAL: Extremities without clubbing, cyanosis, or edema. No obvious deformities. NEUROLOGICAL: Awake, alert oriented 3. No focal deficits. Slight tremors noted to upper extremities. PSYCHIATRIC: Anxious, tremors noted. Results - Labs CBC & Chem 7: 12/31/17 07:08 12/31/17 07:08 Laboratory Results - last 24 hr 12/31/17 12/31/17 07:08 07:08 WBC 2.2 L RBC 4.34 Hgb 12.0 Hct 36.1 MCV 83.2 MCH 27.8 MCHC 33.4 RDW 18.4 H Plt Count 112 L MPV 8.3 Prelim Diff (Auto) Slide review pending Neut % (Auto) 37.9 Lymph % (Auto) 47.7 H [place] % (Auto) 11.5 H Eos % (Auto) 1.6 Baso % (Auto) 1.3 Neut # (Auto) 0.8 L Lymph # (Auto) 1.1 [place] # (Auto) 0.3 Eos # (Auto) 0.0 Baso # (Auto) 0.0 WBC Differential Manual diff final Seg Neuts % (Manual) 49 Lymphocytes % (Manual) 43 Monocytes % (Manual) 7 Eosinophils % (Manual) 1 Abs Neuts (Manual) 1.1 L Differential Comment . Platelet Estimate Low L Platelet Morphology Normal Ovalocytes 1+ H Sodium 132 L Potassium 4.1 Chloride 100 Carbon Dioxide 20.4 L Anion Gap 12 BUN 8 Creatinine 0.69 Estimated GFR 87 L Random Glucose 82 Calcium 8.3 L Total Bilirubin 0.4 AST 166 H ALT 181 H Alkaline Phosphatase 165 H Total Protein 6.3 L Albumin 2.9 L Microbiology 12/28/17 22:10 Clean Catch Urine Urine Culture - Final 50-100,000 cfu/mL mixed jules (probable contaminants ) Assessment and Plan - Assessment (1) Intractable abdominal pain Code(s): R10.9 - Unspecified abdominal pain Status: Acute (2) ETOH abuse Code(s): F10.10 - Alcohol abuse, uncomplicated Status: Acute (3) Bacteriuria Code(s): R82.71 - Bacteriuria Status: Acute (4) Elevated liver enzymes Code(s): R74.8 - Abnormal levels of other serum enzymes Status: Acute (5) Hyponatremia Code(s): E87.1 - Hypo-osmolality and hyponatremia Status: Acute (6) Chest pain Code(s): R07.9 - Chest pain, unspecified Status: Acute - Plan 57-year-old female admitted secondary to hyponatremia, chest pain, abdominal pain, and alcohol intoxication Alcohol withdrawal seizure Delirium tremens -Continue CIWA protocol -Librium 10 mg po q 6 -continue Thiamine/Folic acid/C vitamin -Alcohol cessation emphasized Elevated liver enzymes secondary to alcohol intoxication -LFTs improving Abdominal pain Chest pain Improved May be related to alcohol abuse -Monitor for recurrence -Negative cardiac workup Hyponatremia -Likely related to alcohol abuse -Sodium 131 -Continue to monitor sodium levels -IV hydration -Free fluid restriction History of pulmonary emboli -IVC filter in place -Continue heparin Thrombocytopenia, platelets 128. Trending down. Likely secondary to chronic alcohol abuse -Continue to monitor CBC, may need to stop heparin subcu if he continues to trend down. Alcohol abuse -Patient counseled to quit Bacteriuria -Continue with Bactrim for another day, urine culture negative. DVT prophylaxis Heparin Patient improving slowly, labs reviewed. Possible discharge in 1-2 days. Case management consult, will request that they provide patient with list of outpatient resources for alcohol rehab (6) Chest pain Qualifiers: Chest pain type: unspecified Qualified Code(s): R07.9 - Chest pain, unspecified
[2017-12-31] MEDS: Propranolol 10 MG Tablet PO SCH (20:49)
[2018-01-01] MEDS: LORazepam 1 MG Tablet PO PRN ×5 (02:03→20:03)
[2018-01-01] MEDS: Heparin - SQ 10,000 UNITS/ML Vial SQ SCH ×3 (06:23→21:39)
[2018-01-01] MEDS: Propranolol 10 MG Tablet PO SCH ×2 (08:30→20:04)
[2018-01-01] MEDS: Lactobacillus Acidophilus/L. Spores Tablet PO SCH ×3 (08:30→17:57)
[2018-01-01] MEDS: Sod Chloride 0.9% Inj 1,000 ML IV.CONT SCH ×2 (08:32→22:58)
[2018-01-01 11:01] LABS: Hematocrit 37.4 % (35.0-46.0); Hemoglobin 12.4 gm/dL (11.6-15.3); Mean Corpuscular HGB Conc 33.2 % (32.0-36.0); Mean Corpuscular Hemoglobin 27.9 pg (27.0-34.0); Mean Platelet Volume 8.1 fL (7.0-11.0); Platelet Count 118 th/mm3 (150-450); Red Blood Count 4.45 mil/mm3 (4.00-5.30); Red Cell Distribution Width 18.2 % (11.6-17.2); White Blood Count 2.2 th/mm3 (4.0-11.0)
[2018-01-01 11:33] LABS: Albumin 3.1 g/dL (3.4-5.0); Anion Gap 9 meq/L (5-15); Aspartate Aminotransferase 150 U/L (15-37); Blood Urea Nitrogen 7 mg/dL (7-18); Calcium 8.6 mg/dL (8.5-10.1); Carbon Dioxide 25.2 meq/L (21.0-32.0); Chloride 100 meq/L (98-107); Glomerular Filtration Rate 73 mL/min (>89); Glucose,Random 97 mg/dL (74-106); Potassium 3.6 meq/L (3.5-5.1); Sodium 134 meq/L (136-145)
[2018-01-01 11:37] LABS: Alanine Aminotransferase 192 U/L (10-53); Alkaline Phosphatase 163 U/L (45-117); Total Protein 6.4 g/dL (6.4-8.2)
--- NOTE | 2018-01-01 13:42 | P.PN ---
Subjective Interval history: Minimal abdominal discomfort, 7 loose stools yesterday, none today. Tolerating food fairly well, appetite poor. No nausea, no vomiting. No fever; feels weak, using walker to go to bathroom. Lives alone Physical Exam Vital signs: Vital Signs 12/31/17 16:00 12/31/17 20:00 01/01/18 00:00 Temperature 97.9 F 98.3 F 97.3 F L Pulse Rate 65 79 61 Respiratory Rate 18 20 20 Blood Pressure 177/96 H 140/86 154/88 H Pulse Oximetry 99 96 97 01/01/18 04:00 01/01/18 08:00 01/01/18 08:33 Temperature 97.4 F L Pulse Rate 59 L 57 L 63 Respiratory Rate 20 Blood Pressure 142/81 H Pulse Oximetry 99 01/01/18 12:00 Temperature Pulse Rate 53 L Respiratory Rate Blood Pressure Pulse Oximetry Intake & Output 12/31/17 01/01/18 01/01/18 18:59 06:59 18:59 Intake Total 600 / 600 1720 / 1720 580 / 580 Balance 600 / 600 1720 / 1720 580 / 580 Weight 93.3 kg Intake: IV 1000 / 1000 NS Inj 1,000 ML @ 70 mls/hr IV. 1000 / 1000 CONT .[id number] [facility] Rx#:[id number] Oral 600 / 600 720 / 720 Tube Feeding 540 / 540 Tube Irrigant 40 / 40 Other: # Voids 4 2 # Bowel Movements 2 Narrative: GENERAL: Well-nourished, well-developed patient in no apparent distress. SKIN: Warm and dry. HEAD: Atraumatic. Normocephalic. EYES: Pupils equal and round. No scleral icterus. No injection or drainage. ENT: No nasal bleeding or discharge. Mucous membranes pink and moist. NECK: Trachea midline. No JVD. CARDIOVASCULAR: Regular rate and rhythm. RESPIRATORY: No accessory muscle use. Clear to auscultation. Breath sounds equal bilaterally. GASTROINTESTINAL: Abdomen soft, mild tenderness epigastric area, nondistended. Hepatic and splenic margins not palpable. MUSCULOSKELETAL: Extremities without clubbing, cyanosis, or edema. No obvious deformities. NEUROLOGICAL: Awake, alert oriented 3. No focal deficits. Slight tremors noted to upper extremities. PSYCHIATRIC: appropriate. Results - Labs CBC & Chem 7: 01/01/18 09:53 01/01/18 09:53 Laboratory Results - last 24 hr 01/01/18 01/01/18 09:53 09:53 WBC 2.2 L RBC 4.45 Hgb 12.4 Hct 37.4 MCV 84.0 MCH 27.9 MCHC 33.2 RDW 18.2 H Plt Count 118 L MPV 8.1 Sodium 134 L Potassium 3.6 Chloride 100 Carbon Dioxide 25.2 Anion Gap 9 BUN 7 Creatinine 0.80 Estimated GFR 73 L Random Glucose 97 Calcium 8.6 Total Bilirubin 0.4 AST 150 H ALT 192 H Alkaline Phosphatase 163 H Total Protein 6.4 Albumin 3.1 L Assessment and Plan - Assessment (1) Intractable abdominal pain Code(s): R10.9 - Unspecified abdominal pain Status: Acute (2) ETOH abuse Code(s): F10.10 - Alcohol abuse, uncomplicated Status: Acute (3) Bacteriuria Code(s): R82.71 - Bacteriuria Status: Acute (4) Elevated liver enzymes Code(s): R74.8 - Abnormal levels of other serum enzymes Status: Acute (5) Hyponatremia Code(s): E87.1 - Hypo-osmolality and hyponatremia Status: Acute (6) Chest pain Code(s): R07.9 - Chest pain, unspecified Status: Acute - Plan 57-year-old female admitted secondary to hyponatremia, chest pain, abdominal pain, and alcohol intoxication Alcohol withdrawal seizure Delirium tremens -Continue [facility] protocol -Librium 10 mg po q 6 -continue Thiamine/Folic acid/C vitamin -Alcohol cessation emphasized Elevated liver enzymes secondary to alcohol intoxication -LFTs improving Abdominal pain Chest pain Improved May be related to alcohol abuse -Monitor for recurrence -Negative cardiac workup Hyponatremia-improving -Likely related to alcohol abuse -Sodium 134 -Continue to monitor sodium levels -IV hydration -Free fluid restriction History of pulmonary emboli -IVC filter in place -Continue heparin Thrombocytopenia, platelets 128. Trending down. Likely secondary to chronic alcohol abuse -Continue to monitor CBC, may need to stop heparin subcu if he continues to trend down. -plat better today Alcohol abuse -Patient counseled to quit Bacteriuria -Continue with Bactrim for another day, urine culture negative. DVT prophylaxis Heparin Patient improving slowly, labs reviewed. Possible discharge tomorrow Case management consult, will request that they provide patient with list of outpatient resources for alcohol rehab also arrange [facility] will order PT eval today (6) Chest pain Qualifiers: Chest pain type: unspecified Qualified Code(s): R07.9 - Chest pain, unspecified
--- NOTE | 2018-01-01 13:44 | P.DCO ---
- Diagnosis (2) Chest pain - Physical Therapy Order: Evaluate and treat - Home Health Nursing Order: Medical education, Nursing assessment with vital signs - Case Management Consult Yes - Certification I have seen patient Gogo Stevens on 01/01/18. My clinical findings support the need for the requested home health care services because: ETOH abuse, DTs, high risk for falls, hyponatremia Need for psychosocial assistance, Impaired cognition/judgement, High risk of falls I certify that my clinical findings support that this patient is homebound because: Unsteady gait/balance, Need for psychosocial assistance (2) Chest pain Qualifiers: Chest pain type: unspecified Qualified Code(s): R07.9 - Chest pain, unspecified
[2018-01-02] MEDS: LORazepam 1 MG Tablet PO PRN ×4 (00:01→20:33)
[2018-01-02] MEDS: Heparin - SQ 10,000 UNITS/ML Vial SQ SCH ×3 (05:07→21:18)
[2018-01-02 08:43] LABS: Hematocrit 37.5 % (35.0-46.0); Hemoglobin 12.5 gm/dL (11.6-15.3); Mean Corpuscular HGB Conc 33.2 % (32.0-36.0); Mean Corpuscular Hemoglobin 27.8 pg (27.0-34.0); Mean Corpuscular Volume 83.7 fL (80.0-100.0); Mean Platelet Volume 8.1 fL (7.0-11.0); Platelet Count 128 th/mm3 (150-450); Red Blood Count 4.48 mil/mm3 (4.00-5.30); White Blood Count 2.4 th/mm3 (4.0-11.0)
[2018-01-02 09:08] LABS: Albumin 3.1 g/dL (3.4-5.0); Anion Gap 11 meq/L (5-15); Blood Urea Nitrogen 9 mg/dL (7-18); Calcium 8.8 mg/dL (8.5-10.1); Carbon Dioxide 21.2 meq/L (21.0-32.0); Chloride 106 meq/L (98-107); Glomerular Filtration Rate 72 mL/min (>89); Glucose,Random 88 mg/dL (74-106); Sodium 138 meq/L (136-145)
[2018-01-02] MEDS: Propranolol 10 MG Tablet PO SCH ×2 (09:14→20:33)
[2018-01-02] MEDS: Lactobacillus Acidophilus/L. Spores Tablet PO SCH ×3 (09:14→17:25)
[2018-01-02 09:22] LABS: Alanine Aminotransferase 174 U/L (10-53); Alkaline Phosphatase 157 U/L (45-117); Aspartate Aminotransferase 113 U/L (15-37); Total Protein 6.4 g/dL (6.4-8.2)
--- NOTE | 2018-01-02 11:40 | P.PN ---
Subjective Interval history: less shaky today, feels weak, ambulating with walker to bathroom. Loose stools better, no abd. pain, no n/v, no fever. Afraid to go home. Physical Exam Vital signs: Vital Signs 01/01/18 12:00 01/01/18 16:00 01/01/18 20:00 Temperature 97.3 F L 97.9 F 98.1 F Pulse Rate 60 65 70 Respiratory Rate 18 18 17 Blood Pressure 164/88 H 142/86 H 133/83 Pulse Oximetry 97 98 97 01/02/18 00:00 01/02/18 04:00 01/02/18 08:00 Temperature 98.1 F 98.9 F 97.7 F Pulse Rate 55 L 49 L 61 Respiratory Rate 17 19 20 Blood Pressure 108/62 119/60 171/81 H Pulse Oximetry 97 94 L 100 Intake & Output 01/01/18 01/02/18 01/02/18 18:59 06:59 18:59 Intake Total 1180 / 1180 1672 / 1672 Balance 1180 / 1180 1672 / 1672 Weight 95.3 kg Intake: IV 1432 / 1432 NS Inj 1,000 ML @ 70 mls/hr IV. 1432 / 1432 CONT .[id number] [facility] Rx#:[id number] Oral 600 / 600 240 / 240 Tube Feeding 540 / 540 Tube Irrigant 40 / 40 Other: # Voids 7 2 Date of Last Bowel Movement 01/01/18 Narrative: GENERAL: Well-nourished, well-developed patient in no apparent distress. SKIN: Warm and dry. HEAD: Atraumatic. Normocephalic. EYES: Pupils equal and round. No scleral icterus. No injection or drainage. ENT: No nasal bleeding or discharge. Mucous membranes pink and moist. NECK: Trachea midline. No JVD. CARDIOVASCULAR: Regular rate and rhythm. RESPIRATORY: No accessory muscle use. Clear to auscultation. Breath sounds equal bilaterally. GASTROINTESTINAL: Abdomen soft, mild tenderness epigastric area, nondistended. Hepatic and splenic margins not palpable. MUSCULOSKELETAL: Extremities without clubbing, cyanosis, or edema. No obvious deformities. NEUROLOGICAL: Awake, alert oriented 3. No focal deficits. Slight tremors noted to upper extremities. PSYCHIATRIC: appropriate. Results - Labs CBC & Chem 7: 01/02/18 07:11 01/02/18 07:11 Laboratory Results - last 24 hr 01/01/18 01/02/18 01/02/18 09:53 07:11 07:11 WBC 2.4 L RBC 4.48 Hgb 12.5 Hct 37.5 MCV 83.7 MCH 27.8 MCHC 33.2 RDW 18.0 H Plt Count 128 L MPV 8.1 Sodium 138 Potassium 4.0 Chloride 106 Carbon Dioxide 21.2 Anion Gap 11 BUN 9 Creatinine 0.81 Estimated GFR 72 L Random Glucose 88 Calcium 8.8 Total Bilirubin 0.4 0.4 AST 113 H ALT 192 H 174 H Alkaline Phosphatase 163 H 157 H Total Protein 6.4 6.4 Albumin 3.1 L Assessment and Plan - Assessment (1) Intractable abdominal pain Code(s): R10.9 - Unspecified abdominal pain Status: Acute (2) Chest pain Code(s): R07.9 - Chest pain, unspecified Status: Acute (3) ETOH abuse Code(s): F10.10 - Alcohol abuse, uncomplicated Status: Acute (4) Elevated liver enzymes Code(s): R74.8 - Abnormal levels of other serum enzymes Status: Acute (5) Hyponatremia Code(s): E87.1 - Hypo-osmolality and hyponatremia Status: Acute (6) Bacteriuria Code(s): R82.71 - Bacteriuria Status: Acute - Plan 57-year-old female admitted secondary to hyponatremia, chest pain, abdominal pain, and alcohol intoxication Alcohol withdrawal seizure Delirium tremens -Continue [facility] protocol -Librium 10 mg po q 6 -continue Thiamine/Folic acid/C vitamin -Alcohol cessation emphasized Elevated liver enzymes secondary to alcohol intoxication -LFTs improving Abdominal pain Chest pain Improved May be related to alcohol abuse -Monitor for recurrence -Negative cardiac workup Hyponatremia-improving -Likely related to alcohol abuse -Sodium 138 -Continue to monitor sodium levels -Free fluid restriction -DC IVF History of pulmonary emboli -IVC filter in place -Continue heparin Thrombocytopenia, platelets 128. Trending down. Likely secondary to chronic alcohol abuse -Continue to monitor CBC, may need to stop heparin subcu if he continues to trend down. -plat better today Alcohol abuse -Patient counseled to quit Bacteriuria -DC Bactrim, UC negative DVT prophylaxis -Heparin Improving, less tremors PT eval results noted, [facility] recommended. Pt. has no payor source. Will keep one more day for safety. Needs out of bed Needs to seek ETOH help as OP. States she has supportive friends. (2) Chest pain Qualifiers: Chest pain type: unspecified Qualified Code(s): R07.9 - Chest pain, unspecified
[2018-01-03] MEDS: LORazepam 1 MG Tablet PO PRN ×2 (00:57→09:35)
[2018-01-03 05:12] VITALS: BP 138/84; RESP 17; TEMP 97.9; O2SAT 94
[2018-01-03] MEDS: Heparin - SQ 10,000 UNITS/ML Vial SQ SCH (05:44)
[2018-01-03] MEDS: Propranolol 10 MG Tablet PO SCH (09:28)
[2018-01-03] MEDS: Lactobacillus Acidophilus/L. Spores Tablet PO SCH (09:28)
[2018-01-03 11:02] VITALS: PULSE 46
--- NOTE | 2018-01-03 12:10 | P.PN ---
Subjective Interval history: follow up for hyponatremia, CP, ETOH abuse: pt. feeling better, less loose stools, better appetite, tremors have improved, no cp, no sob, no fever. States that she will quit drinking. Has a good support system of friends. Was in AA before. Physical Exam Vital signs: Vital Signs 01/02/18 16:00 01/02/18 20:00 01/03/18 00:00 Temperature 97.7 F 97.6 F 98.9 F Pulse Rate 62 80 55 L Respiratory Rate 20 17 19 Blood Pressure 135/81 142/94 H 121/79 Pulse Oximetry 99 97 98 01/03/18 00:10 01/03/18 04:00 01/03/18 09:00 Temperature 97.9 F Pulse Rate 61 50 L 46 L Respiratory Rate 17 Blood Pressure 138/84 Pulse Oximetry 94 L Intake & Output 01/02/18 01/03/18 01/03/18 18:59 06:59 18:59 Intake Total 1048 / 1048 440 / 440 Balance 1048 / 1048 440 / 440 Weight 94.9 kg Intake: IV 488 / 488 NS Inj 1,000 ML @ 70 mls/hr IV. 488 / 488 CONT .[id number] [facility] Rx#:[id number] Oral 560 / 560 440 / 440 Other: # Voids 6 3 Date of Last Bowel Movement 01/02/18 01/02/18 # Bowel Movements 2 Narrative: GENERAL: Well-nourished, well-developed patient in no apparent distress. SKIN: Warm and dry. HEAD: Atraumatic. Normocephalic. EYES: Pupils equal and round. No scleral icterus. No injection or drainage. ENT: No nasal bleeding or discharge. Mucous membranes pink and moist. NECK: Trachea midline. No JVD. CARDIOVASCULAR: Regular rate and rhythm. RESPIRATORY: No accessory muscle use. Clear to auscultation. Breath sounds equal bilaterally. GASTROINTESTINAL: Abdomen soft, mild tenderness epigastric area, nondistended. Hepatic and splenic margins not palpable. MUSCULOSKELETAL: Extremities without clubbing, cyanosis, or edema. No obvious deformities. NEUROLOGICAL: Awake, alert oriented 3. No focal deficits. Minimal tremors noted to upper extremities. PSYCHIATRIC: appropriate. Results - Labs CBC & Chem 7: 01/02/18 07:11 01/02/18 07:11 Assessment and Plan - Assessment (1) Intractable abdominal pain Code(s): R10.9 - Unspecified abdominal pain Status: Acute (2) Chest pain Code(s): R07.9 - Chest pain, unspecified Status: Acute (3) ETOH abuse Code(s): F10.10 - Alcohol abuse, uncomplicated Status: Acute (4) Elevated liver enzymes Code(s): R74.8 - Abnormal levels of other serum enzymes Status: Acute (5) Hyponatremia Code(s): E87.1 - Hypo-osmolality and hyponatremia Status: Acute (6) Bacteriuria Code(s): R82.71 - Bacteriuria Status: Acute - Plan 57-year-old female admitted secondary to hyponatremia, chest pain, abdominal pain, and alcohol intoxication Alcohol withdrawal seizure Delirium tremens -Continue [facility] protocol -Librium 10 mg po q 6 -continue Thiamine/Folic acid/C vitamin -Alcohol cessation emphasized -symptoms improved. Stable Elevated liver enzymes secondary to alcohol intoxication -LFTs improving Abdominal pain Chest pain Improved May be related to alcohol abuse -Monitor for recurrence -Negative cardiac workup Hyponatremia-improving -Likely related to alcohol abuse -resolved. -Free fluid restriction -DCd IVF History of pulmonary emboli -IVC filter in place -Continue heparin Thrombocytopenia, platelets 128. Trending down. Likely secondary to chronic alcohol abuse -Continue to monitor CBC, may need to stop heparin subcu if he continues to trend down. -plat better Alcohol abuse -Patient counseled to quit Bacteriuria -DCd Bactrim, UC negative -no fever, no urinary symptoms. DVT prophylaxis -Heparin Symptoms improved, no anxiety, tremors very minimal. CM to provide a few HHC visits. Pt. has a friend who will help ETOH cessation resources provided. E force checked, will give 2 days of Librium pt to seek help through [facility] in one week Diet-heart healthy Activity-as tolerated (2) Chest pain Qualifiers: Chest pain type: unspecified Qualified Code(s): R07.9 - Chest pain, unspecified
--- NOTE | 2018-01-03 15:09 | P.DS ---
Date of admission: 12/29/17 00:11 Primary care physician: No Primary Care Physician Attending physician on discharge: Matthew Garza Anticipated date of discharge: 01/03/18 Brief History from admission: 57-year-old female with a past medical history of alcohol abuse, anxiety/ bipolar disorder/depression, hypertension and a history of recurrent pancreatitis presents the emergency department for evaluation of abdominal and chest pain. The patient reports that her friend called 911 because she has had abdominal pain for the past week. She states that the pain is very similar to her previous episodes of pancreatitis. The patient admits to drinking heavily for the past 3-4 weeks but refuses to quantify the exact amount. She also reports associated chest pain that is somewhat better but at the time of her arrival. She reports the chest pain started a couple of days ago and is on the left side, nonradiating and she describes it as a sharp pain that is worse with inspiration. She also reports a history of PE and states she is supposed to be on chronic anticoagulation but is not compliant with this. She cannot tell me what medication she is supposed to be on. She does not have a primary care physician. Patient also endorses subjective associated fevers for the past week. No nausea/vomiting/diarrhea. No shortness of breath. No lateralizing signs/symptoms. DS: Diagnosis - Discharge Diagnosis (1) Intractable abdominal pain Status: Acute (2) Chest pain Status: Acute (3) ETOH abuse Status: Acute (4) Elevated liver enzymes Status: Acute (5) Hyponatremia Status: Acute (6) Bacteriuria Status: Acute DS: Medications - Discharge Medications Prescriptions: chlordiazepoxide HCl 10 mg PO Q6H 2 Days #12 cap thiamine HCl (vitamin B1) 100 mg PO BID 30 Days #60 tab DS: Summary Hospital Course: 57-year-old female with a past medical history of alcohol abuse, anxiety/ bipolar disorder/depression, hypertension and a history of recurrent pancreatitis presents the emergency department for evaluation of abdominal and chest pain. The patient reports that her friend called 911 because she has had abdominal pain for the past week. She states that the pain is very similar to her previous episodes of pancreatitis. The patient admits to drinking heavily for the past 3-4 weeks but refuses to quantify the exact amount. She also reports associated chest pain that is somewhat better but at the time of her arrival. She reports the chest pain started a couple of days ago and is on the left side, nonradiating and she describes it as a sharp pain that is worse with inspiration. She also reports a history of PE and states she is supposed to be on chronic anticoagulation but is not compliant with this. She cannot tell me what medication she is supposed to be on. She does not have a primary care physician. Patient also endorses subjective associated fevers for the past week. No nausea/vomiting/diarrhea. No shortness of breath. No lateralizing signs/symptoms. 57-year-old female admitted secondary to hyponatremia, chest pain, abdominal pain, and alcohol intoxication During the course of the hospitalization, patient was monitored for alcohol withdrawal seizures. She was put on [facility] protocol. She was started on Librium 10 mg p.o. every 6. She was started on thiamine, folic acid and vitamins. Alcohol cessation education was emphasized. Patient's tremors improved. She was able to tolerate diet, she had no nausea, no vomiting. Abdominal pain improved. Chest pain was evaluated, serial troponins were done which were negative for acute coronary syndrome. Was noted with elevated liver enzymes secondary to alcohol intoxication, LFTs were repeated and improved. She was not hyponatremic, this is likely secondary to alcohol abuse. She was put on free fluid restriction. Initially she was put on IV fluids which were later discontinued. She had a history of pulmonary emboli, had a IVC filter in place. She was put on subcu heparin for DVT prophylaxis. She was noted to be cytopenic, platelets 128. They did not continue to trend down, this was likely secondary to chronic alcohol use. She was noted with bacteria in UA. She was put on Bactrim for 3 days. Urine culture was negative. She was afebrile, no urinary symptoms. Patient symptoms improve, she was less tremulous, she was getting out of bed and mobilizing better. She was tolerating diet well. Electrolytes normalized. Case management was consulted to assist with discharge planning, a few home health care visits were arranged. She was provided resources for alcohol cessation. Patient indicated she will be going to AA. He first was checked, patient was given 2 days of Librium. She was instructed to follow-up at the [facility]. - Time Spent with Patient Total time spent providing and/or coordinating discharge services: Less than 30 minutes - Quality: VTE Deep Vein Thrombosis/Pulmonary Embolism Present on Admission: Yes Exam Vital signs: Vital Signs 01/02/18 16:00 01/02/18 20:00 01/03/18 00:00 Temperature 97.7 F 97.6 F 98.9 F Pulse Rate 62 80 55 L Respiratory Rate 20 17 19 Blood Pressure 135/81 142/94 H 121/79 Pulse Oximetry 99 97 98 01/03/18 00:10 01/03/18 04:00 01/03/18 09:00 Temperature 97.9 F Pulse Rate 61 50 L 46 L Respiratory Rate 17 Blood Pressure 138/84 Pulse Oximetry 94 L Intake & Output 01/02/18 01/03/18 01/03/18 18:59 06:59 18:59 Intake Total 1048 / 1048 440 / 440 Balance 1048 / 1048 440 / 440 Weight 94.9 kg Intake: IV 488 / 488 NS Inj 1,000 ML @ 70 mls/hr IV. 488 / 488 CONT .[id number] [facility] Rx#:[id number] Oral 560 / 560 440 / 440 Other: # Voids 6 3 Date of Last Bowel Movement 01/02/18 01/02/18 # Bowel Movements 2 Results Procedures completed during hospitalization: none - Impressions ITS Impressions Chest CTA 12/28/17 20:10 CONCLUSION: 1. The study is negative for pulmonary embolism. Chest X-Ray 12/28/17 20:10 CONCLUSION: The lungs are clear. Abdomen/Pelvis CT 12/28/17 20:11 CONCLUSION: 1. Marked distention of the urinary bladder. 2. No radiographic evidence of pancreatitis. 3. Stable CT findings of severe fatty infiltration of the liver, intrathoracic stomach, IVC filter and lower anterior pelvic wall varices. Discharge Plan - Discharge Disposition Patient Disposition: 01 Discharge Home - Discharge Condition Condition: Stable - Discharge Order Discharge Orders: Discharge Order (Routine); Ordered 01/03/18 Ordered By: Shaniqua Milian - Discharge Details Anticipated Discharge Date: 01/03/18 - Physicians Team Primary Care Provider: Primary Care Adriane,Danisha Attending Provider: Matthew Garza
== END 2018-01-03 13:09 | disposition home or self-care (01) ==
LOC: NEDA 19:53 → NEPE 19:53 → NEPGCP 12-29 00:19 → N04 12-30 19:09 → UNDODISIN 12-31 11:20
PROVIDERS: ADMIT Hospitalist; ATTEND Hospitalist